=== PATIENT | male | born 1970 | race Caucasian/White ===

== ENCOUNTER 2019-02-14 13:45 | Inpatient (IN) | payer MEDICAID, SELFPAY ==
[2019-02-14] VITALS (9 sets, daily range): BP systolic 104–133; BP diastolic 58–84; PULSE 75–89; RESP 16–20; TEMP 36.1–36.8; O2SAT 90–98; BMI 34.8; BMI 34.2; BMI 34.3
--- NOTE | 2019-02-14 13:50 | NURSING ---
NO OLD EKGS
--- NOTE | 2019-02-14 13:56 | EKG12_ITS ---
Test Reason : CP Blood Pressure : / mmHG Vent. Rate : 076 BPM Atrial Rate : 076 BPM P-R Int : 168 ms QRS Dur : 100 ms QT Int : 420 ms P-R-T Axes : 061 082 069 degrees QTc Int : 472 ms Normal sinus rhythm Nonspecific T wave abnormality Abnormal ECG Confirmed by NIRMAL ELISE, NINFA ([id number]), editor sound IRISH CHOWDHURY ([id number]) on 02/17/2019 10:23:17 AM Referred By: Mega Ryan Confirmed By:GELY KINNEY MD
[2019-02-14 14:03] LABS: Absolute Lymphocyte Count 8.05 X10^3/uL (0.83-4.51); Absolute Neutrophil Count 13.6 X10^3/uL (2.0-7.7); Basophil# 0.24 X10^3/uL; Eosinophil# 0.31 X10^3/uL; Eosinophils% 1.3 % (0-5); Hematocrit 54.3 % (40-54); Hemoglobin 19.1 g/dL (13.0-16.5); Lymphocyte # 8.05 X10^3/ul (4.0); Lymphocyte % 33.7 % (19-41); Mean Corp Hgb Conc 35.2 g/dL (32-36); Mean Corpuscular Hgb 31.8 pg (27.0-32.0); Mean Corpuscular Volume 90.5 fL (80-94); Monocyte# 1.45 X10^3/uL; Monocyte% 6.1 % (0-10); NRBC Flagged by Analyzer 0 % (0-5); Neutrophil % 56.9 % (47-70); POSITIVE DIFFERENTIAL YES; Platelet Count 301 K/mm3 (150-450); RBC Distribution Width CV 12.9 % (11.6-14.6); RBC Distribution Width SD 42.3 fl (35.1-43.9); White Blood Count 23.9 K/mm3 (4.4-11.0)
--- NOTE | 2019-02-14 14:03 | RAD_ITS ---
STUDY: X-RAY CHEST REASON FOR EXAM: Male, 48 years old. Chest pain. Nausea and vomiting. TECHNIQUE: Single frontal view of the chest. COMPARISON: February 09, 2012 FINDINGS: Low-volume inspiration with diffuse interstitial pattern. There is no demonstrated pleural abnormality. Normal size heart. Normal mediastinum and vane. Normal visualized pulmonary arteries. Normal visualized aortic arch and descending thoracic aorta. Normal visualized thoracic spine. Normal visualized ribs, clavicles, and shoulders. There is no demonstrated abnormality of the visualized soft tissue structures of the upper abdomen. RAD/Chest 1 View (Portable) IMPRESSION: Low volume inspiration with diffuse interstitial pattern. No acute or active cardiopulmonary disease. Electronically Signed: Blaise Chua MD at 14:25 EST , Service support ,
--- NOTE | 2019-02-14 14:04 | ED.DCSUM_ITS ---
- ER Visit Summary Date of Service: 02/14/19 Chief Complaint: Epigastric abdominal pain and lower chest pain. History of Present Illness: The patient is a 48 M past medical history of peptic ulcer and is teenage years. Otherwise is healthy. Patient had some alcoholic beverages yesterday. Today around 1130 started get epigastric abdominal pain with nausea vomiting. He was vomiting at home violently. After throwing up multiple times he did have a small amount of blood. No coffee-ground material no recent melena. States the pain is epigastric in his lower chest. No shortness of breath. Said he is never had anything like this before. He has no history of pancreatitis nor any history of cardiac disease. Physical Examination: Middle-aged male vital signs are stable initial blood pressure 104/58. Pulse is 96% on room air no hypoxia. He is diaphoretic. He is pale and he is actively vomiting. H EENT exam diaphoretic. Moist use membranes. Neck nontender. No lymphadenopathy. Lungs clear to auscultation bilaterally. Heart regular rhythm no murmur rate about 85. Chest wall nontender. Abdomen soft. Nondistended. Normal bowel sounds. Exquisitely tender in epigastric region. There is no hernia or mass. No signs of obstruction. No Sheehan sign. No McBurney's point tenderness. Patient is moving all 4 extremities. Calves are nontender without edema or cords. There is no cyanosis. Back nontender. Neurologically is awake and alert. He is following commands. No focal motor deficits. Test Results: EKG sinus rhythm rate of 76 no signs of [place] or ischemia. Chest x- ray portable No acute abnormality read by myself and the radiologist. CBC shows white count 23.9 hemoglobin 19 hematocrit 54. Liver enzymes are slightly elevated. Lipase is severely elevated at 31,577. Troponin normal. Chemistries unremarkable. CAT scan of the abdomen pelvis with IV contrast only shows acute pancreatitis with gallstones. Read by the radiologist and reviewed by me. Emergency Department Course and Treatment: Noise male with sudden onset epigastric pain with nausea and vomiting. Differential includes pancreatitis versus cardiac etiology versus gastritis versus other. He will undergo cardiac work-up. Including a lipase and liver. He received morphine and Zofran for pain. A liter of normal saline. Treatment Plan: Since been treated with morphine with for a total of 14 mg. Zofran doses x2. He is improving but his pain still 7 out of 10. I will now write him for Dilaudid 1 mg and Zofran. He is received a liter of normal saline. I will speak to the hospitalist about admission. I do have a CAT scan with IV contrast ordered. I spoke to the hospitalist and he is comfortable admitting the patient to the medical surgical floor. Disposition: Admission Impression: Acute epigastric abdominal pain with nausea and vomiting due to acute pancreatitis All stone seen on CAT scan. This note was generated with [employer] dictation software. It may contain incorrect words, spelling, and punctuation that were not noted in review of the chart prior to signing ED Disposition - Plan for ED Patient:
[2019-02-14 14:05] LABS: Differential Indicated SCAN CRITERIA MET
[2019-02-14] MEDS: morphine 8 MG/ML Syringe IV (14:06)
[2019-02-14] MEDS: Ondansetron 4 MG/2 ML Vial IV ×4 (14:06→21:29)
[2019-02-14] MEDS: 0.9% Normal Saline 1,000 ML 999 ML IV (14:07)
[2019-02-14 14:38] LABS: AST(SGOT) 125 U/L (15-37); Alanine Aminotransfer ALT/SGPT 104 U/L (16-61); Albumin, Serum 4.1 g/dL (3.2-5.0); Alkaline Phosphatase 139 U/L (45-117); Bilirubin, Direct 0.77 mg/dL (0.00-0.30); Globulin 3.4 g/dL (2.2-4.2); Protein, Total 7.5 g/dL (6.4-8.2)
[2019-02-14] MEDS: morphine 8 MG/ML Syringe 6 MG IV (15:04)
[2019-02-14 16:08] LABS: Anion Gap 11 (5-15); BUN 10 mg/dL (7-18); BUN/Creat Ratio 8.1 RATIO (10-20); Chloride 108 mmol/L (98-107); Creatinine, Serum 1.24 mg/dL (0.70-1.30); EST Glomerular Filtration Rate 66 mL/min (>60); Est Glom Filt Rate - Afr Amer 80 mL/min (>60); Estimated Creatinine Clearance 80.83 ml/min; Glucose 160 mg/dL (74-106); Lipase 31577 U/L (73-393); Potassium 3.2 mmol/L (3.5-5.1); Sodium Level 140 mmol/L (136-145)
--- NOTE | 2019-02-14 16:17 | CT_ITS ---
STUDY: CT ABDOMEN AND PELVIS WITH CONTRAST REASON FOR EXAM: Male, 48 years old. EPIGASTRIC PAIN. PANCREATITIS RADIATION DOSAGE (If Supplied By Facility): CTDIvol = ( 16.25 ) mGy, DLP = ( 1353.19 ) mGycm TECHNIQUE: Transaxial images were obtained from the dome of the diaphragm to the symphysis pubis without oral contrast. IV 100mL Isovue-300 was administered. Sagittal and coronal images were reconstructed. Individualized dose optimization techniques were used for this CT. COMPARISON: None. FINDINGS: There is right basilar atelectasis and/or scarring present. The visualized portions of the heart are within normal limits. Normal liver. There are gallstones within the gallbladder. Normal spleen. There is diffuse enlargement of the pancreas with david-pancreatic edema suggesting acute pancreatitis. Normal bilateral adrenal glands. Normal right kidney. Normal left kidney. Normal visualized stomach. Normal small intestine. Normal colon. The appendix is visualized and appears normal. Normal abdominal aorta. Normal inferior vena cava. Normal retroperitoneum. Normal urinary bladder. Normal abdominal wall. There mild degenerative changes of the thoracic and lumbar spine. CT/Abdomen/Pelvis W IV Cont ONLY IMPRESSION: Acute pancreatitis. Cholelithiasis. Electronically Signed: Hannah Villarreal MD at 16:48 EST Tel , Service support ,
--- NOTE | 2019-02-14 16:43 | NURSING ---
317 SEVERE PANCREATITIS PATRICIA
[2019-02-14] MEDS: HYDROmorphone 1 MG/ML Syringe IV ×3 (16:45→21:48)
--- NOTE | 2019-02-14 17:43 | US_ITS ---
STUDY: ABDOMINAL ULTRASOUND - RIGHT UPPER QUADRANT REASON FOR VISIT: Male, 48 years old PANCREATITIS AND EPIGASTRIC PAIN TECHNIQUE: Ultrasound evaluation of the right upper quadrant was performed with real-time and static rangel-scale imaging. TECHNICAL QUALITY: Adequate. COMPARISON: CT dated February 14, 2019 FINDINGS: Liver: The liver measures 16.2 cm. There is normal echogenicity of the liver. The bile ducts are within normal limits. There is hepatic color flow. The direction of portal flow is hepatopetal. There is no demonstrated mass lesion. Gallbladder: Normal distended gallbladder. The gallbladder wall measures 4.3 mm. There is a positive sonographic Sheehan''s sign. There is no pericholecystic fluid. There are multiple echogenic structures within the gallbladder, consistent with multiple gallstones. Common Bile Duct (C.B.D.): The common bile duct measures 4.3 mm. Pancreas: There is nonvisualization of the pancreas secondary to overlying bowel gas. Right Kidney: Normal size of the right kidney. The right kidney measures 11.5 cm in length. Normal renal cortex. There is no demonstrated renal mass or cyst. There is no right hydronephrosis. US/Gallbladder IMPRESSION: Cholelithiasis associated with mild gallbladder wall thickening and a reported positive sonographic Sheehan''s sign and no pericholecystic fluid; may be secondary to chronic cholecystitis. Nonvisualization of the pancreas secondary to overlying bowel gas. Electronically Signed: Hannah Villarreal MD at 18:36 EST Tel , Service support ,
--- NOTE | 2019-02-14 18:08 | PCM.HP.STD ---
History of Present Illness Date of Admission: 02/14/19 Chief Complaint: Abdominal pain The patient is a 48 year old M with no significant past medical history presents with acute onset abdominal pain that started this morning. He states that around 1130 he started feeling a little bit nauseated and feverish as well as chilled and then he started having some epigastric abdominal pain that steadily worsened throughout the day. He states that for the last several weeks he has been in his normal health, yesterday he had 2-1/2 bourbon and Cokes which she did because of the holidays with family, otherwise he rarely drinks even more than once a month. He denies any lightheadedness or dizziness, however he presented to the ER and was found to have a lipase of 31,000 as well as a leukocytosis to 23.9 and a hemoglobin of 19.1 indicating severe dehydration. Also of note his total bilirubin was 1.6 with a direct bilirubin of 0.77 and an AST of 125 and an ALT of 104. CT scan of his abdomen pelvis shows severe pancreatitis with cholelithiasis. Past Medical History Allergies No Known Allergies Allergy (Verified 02/14/19 13:45) Home Medications: Ambulatory Orders Medication Instructions Recorded NK 02/14/19 Surgical History: no surgical history Smoking Status: Current every day smoker Tobacco Use: Secondhand, Cigarettes Alcohol: Rare Drugs: None - *Family History Maternal History Items: Heart Disease Paternal History Items: Unknown Review of Systems Constitutional: Reports: Chills, Fever HEENT: Denies: Head Aches, Sinus Congestion, Sinus Drainage Cardiovascular: Denies: Chest Pain, Palpitations Respiratory: Denies: Cough, Shortness of breath at rest, Sputum production Gastrointestinal: Reports: Abdominal Pain, Nausea, Vomiting Genitourinary: Denies: Dysuria Musculoskeletal: Denies: Joint Pain, Joint Tenderness Skin: Denies: Rash, Wounds Neurological: Denies: Numbness, Tingling, Focal weakness Psychiatric: Denies: Anxiety, Depression Hematologic/ Lymphatic: Denies: Easy Bruising, Easy Bleeding VTE Information - Inpt Only VTE Present on Admission: No - Physical Exam Vitals/I&O's: Vital Signs Temp Pulse Resp BP Pulse Ox 96.9 F L 81 18 108/78 96 02/14/19 13:46 02/14/19 16:00 02/14/19 16:00 02/14/19 16:00 02/14/19 16:00 Oxygen Flow Rate (L/min) 2 Oxygen Delivery Method Room Air Weight: 253 lb 4.978 oz Body Mass Index (BMI) 34.2 Intake and Output for Last 24 Hours 02/12/19 02/13/19 02/14/19 23:59 23:59 23:59 Intake Total 1035 / 1035 Balance 1035 / 1035 General: Alert, Oriented x3, Cooperative, - - In mild distress from abdominal pain HEENT: Atraumatic, PERRLA, EOMI, Normocephalic Oral: Dry Mucosa Neck: Supple, No JVD Lungs: Clear to auscultation, Normal air movement, No rhonchi, No wheeze, No rales Cardiovascular: Regular rate, Regular Rhythm, Normal S1, Normal S2, No murmurs Abdomen: Soft, Non-Distended, No Hepato-splenomegaly, Tender - Severely tender in the epigastric region Extremities: No edema, Capillary Refill Less than 3 Seconds Skin: No rashes, No breakdown Neurological: Neuro grossly intact, Sensory exam intact to light touch and pain Psych/Mental Status: Normal Affect, Appropriate Laboratory Results 02/14/19 13:50: Total Bilirubin 1.60 H, Direct Bilirubin 0.77 H, AST 125 H, ALT 104 H, Alkaline Phosphatase 139 H, Total Protein 7.5, Albumin 4.1, Globulin 3.4 02/14/19 13:51: WBC 23.9 H, RBC 6.00, Hgb 19.1 H*, Hct 54.3 H, MCV 90.5, MCH 31.8, MCHC 35.2, RDW Std Deviation 42.3, RDW Coeff of George 12.9, Plt Count 301, MPV 10.0, Immature Gran % (Auto) 1.000 H, Neut % (Auto) 56.9, Lymph % (Auto) 33.7, [place] % (Auto) 6.1, Eos % (Auto) 1.3, Baso % (Auto) 1.0, Absolute Neuts (auto) 13.6 H, Absolute Lymphs (auto) 8.05 H, Nucleated RBC % 0, Diff Path Review June02/14/19 13:51: Sodium 140, Potassium 3.2 L, Chloride 108 H, Carbon Dioxide 21.0, Anion Gap 11, BUN 10, Creatinine 1.24, Estim Creat Clear Calc 80.83, Est GFR (MDRD) Af Amer 80, Est GFR (MDRD) Non-Af 66, BUN/Creatinine Ratio 8.1 L, Glucose 160 H, Calcium 10.0, Troponin I < 0.015, Lipase 59668 H Current Medications Enoxaparin Sodium (Lovenox) 40 mg SC DAILY INGRID Hydromorphone HCl (Dilaudid Inj) 1 mg IV Q4H PRN PRN PRN Reason: Pain Score 6-10/10 Sodium Chloride () 1,000 mls @ 200 mls/hr IV .Q5H INGRID Ondansetron HCl (Zofran) 4 mg IV Q8H PRN PRN PRN Reason: NAUSEA/VOMITING Prochlorperazine Edisylate (Compazine Iv) 5 mg IV Q4H PRN PRN PRN Reason: Breakthrough nausea/vomiting Sodium Chloride () 10 - 40 ml IV UD PRN PRN Reason: SALINE FLUSH Assessment/Plan 1. Severe pancreatitis -He received 2 L of fluids in the ER and will maintain him on IV fluid rate of 200 cc/h -N.p.o. -Could not discern whether or not there is ductal dilatation on the CT scan therefore will obtain a right upper quadrant ultrasound for further evaluation -No antibiotics at this time -Lipase of 31,000, will not recheck -Continue with Dilaudid 1 mg every 4 may need to decrease interval as he seems to have tolerated significant amount of morphine and Dilaudid in the ER -Continue with Zofran and Compazine as needed for nausea -We will obtain a lipid profile to evaluate his triglycerides 2. Tobacco abuse -Advised cessation DVT: Lovenox Code Visit Inpatient E&M: 57237 Init Hosp L2
[2019-02-14] MEDS: 0.9% Normal Saline 1,000 ML 200 ML IV ×2 (18:12→23:20)
[2019-02-14] MEDS: 0.9% Saline Lock 10 ML Syringe IV (18:16)
[2019-02-14 18:37] LABS: Cholesterol 154 mg/dL (200); High Density Lipoprotein 27 mg/dL; Triglycerides 139 mg/dL; Very Low Density Lipoprotein 28 mg/dL (5-40)
[2019-02-14] MEDS: proCHLORPERazine 10 MG/2 ML Vial 5 MG IV ×2 (18:51→23:22)
[2019-02-15] VITALS (11 sets, daily range): BP systolic 133–153; BP diastolic 71–106; PULSE 69–137; RESP 18–28; TEMP 36.8–38.2; O2SAT 92–97
[2019-02-15] MEDS: proMETHazine 25 MG/ML Syringe 6.25 MG IV ×2 (00:15→11:31)
[2019-02-15] MEDS: 0.9% Normal Saline 1,000 ML 200 ML IV ×3 (04:32→19:23)
[2019-02-15] MEDS: HYDROmorphone 1 MG/ML Syringe IV ×5 (04:33→23:22)
[2019-02-15 06:20] LABS: Absolute Lymphocyte Count 1.28 X10^3/uL (0.83-4.51); Absolute Neutrophil Count 21.5 X10^3/uL (2.0-7.7); Basophil# 0.06 X10^3/uL; Basophil% 0.2 % (0-1); Eosinophils% 0.4 % (0-5); Lymphocyte # 1.28 X10^3/ul (4.0); Lymphocyte % 5.2 % (19-41); Mean Corpuscular Hgb 31.5 pg (27.0-32.0); Mean Corpuscular Volume 92.6 fL (80-94); Mean Platelet Vol. 10.3 fl (6.2-12.0); Monocyte# 1.38 X10^3/uL; Monocyte% 5.6 % (0-10); NRBC Flagged by Analyzer 0 % (0-5); Neutrophil # 21.53 X10^3/uL (2.7-7.7); Neutrophil % 87.6 % (47-70); POSITIVE DIFFERENTIAL YES; Platelet Count 261 K/mm3 (150-450); RBC Distribution Width CV 12.9 % (11.6-14.6); RBC Distribution Width SD 43.8 fl (35.1-43.9); Red Blood Count 6.06 M/mm3 (4.6-6.2); White Blood Count 24.6 K/mm3 (4.4-11.0)
[2019-02-15 06:49] LABS: AST(SGOT) 50 U/L (15-37); Alanine Aminotransfer ALT/SGPT 101 U/L (16-61); Albumin, Serum 3.4 g/dL (3.2-5.0); Alkaline Phosphatase 121 U/L (45-117); Anion Gap 9 (5-15); BUN 16 mg/dL (7-18); BUN/Creat Ratio 14.7 RATIO (10-20); Calcium,Total 8.2 mg/dL (8.5-10.1); Chloride 107 mmol/L (98-107); Creatinine, Serum 1.09 mg/dL (0.70-1.30); EST Glomerular Filtration Rate 77 mL/min (>60); Est Glom Filt Rate - Afr Amer 93 mL/min (>60); Estimated Creatinine Clearance 91.96 ml/min; Globulin 3.3 g/dL (2.2-4.2); Glucose 213 mg/dL (74-106); Potassium 4.8 mmol/L (3.5-5.1); Protein, Total 6.7 g/dL (6.4-8.2); Sodium Level 140 mmol/L (136-145)
[2019-02-15 07:07] LABS: Hematocrit 56.1 % (40-54)
[2019-02-15 07:08] LABS: Differential Indicated SCAN CRITERIA MET; Hemoglobin 19.1 g/dL (13.0-16.5)
[2019-02-15 07:14] LABS: Differential Comment SCANNED; Platelet Estimate ADEQUATE (ADEQ)
[2019-02-15] MEDS: Ondansetron 4 MG/2 ML Vial IV ×2 (07:47→18:31)
[2019-02-15] MEDS: 0.9% Saline Lock 10 ML Syringe IV ×4 (07:48→23:23)
[2019-02-15] MEDS: 0.9% Normal Saline 1,000 ML 999 ML IV ×4 (09:18→17:50)
--- NOTE | 2019-02-15 10:01 | PN_ITS ---
Subjective: Still with significant abdominal pain as well as nausea and episodes of vomiting. Phenergan was added overnight to his regimen for nausea Vitals/I&O's: Vital Signs Temp Pulse Resp BP Pulse Ox 99.4 F H 108 H 24 H 134/94 H 93 02/15/19 07:51 02/15/19 07:51 02/15/19 07:51 02/15/19 07:51 02/15/19 07:51 Oxygen Flow Rate (L/min) 2 Oxygen Delivery Method Room Air Weight: 253 lb 4.978 oz Body Mass Index (BMI) 34.2 Intake and Output for Last 24 Hours 02/13/19 02/14/19 02/15/19 23:59 23:59 23:59 Intake Total 2034 / 2034 1989. / Output Total 100 / 100 300 / 300 Balance 1934 1690.00 / 169.00 General: Alert, Oriented x3, Cooperative, - - In mild distress from abdominal pain HEENT: Atraumatic, PERRLA, EOMI, Normocephalic Oral: Dry Mucosa Neck: Supple, No JVD Lungs: Clear to auscultation, Normal air movement, No rhonchi, No wheeze, No rales Cardiovascular: Regular rate, Regular Rhythm, Normal S1, Normal S2, No murmurs Abdomen: Soft, Non-Distended, No Hepato-splenomegaly, Tender - Severely tender in the epigastric region Extremities: No edema, Capillary Refill Less than 3 Seconds Skin: No rashes, No breakdown Neurological: Neuro grossly intact, Sensory exam intact to light touch and pain Psych/Mental Status: Normal Affect, Appropriate Laboratory Results 02/14/19 13:50: Total Bilirubin 1.60 H, Direct Bilirubin 0.77 H, AST 125 H, ALT 104 H, Alkaline Phosphatase 139 H, Total Protein 7.5, Albumin 4.1, Globulin 3.4 02/14/19 13:51: WBC 23.9 H, RBC 6.00, Hgb 19.1 H*, Hct 54.3 H, MCV 90.5, MCH 31.8, MCHC 35.2, RDW Std Deviation 42.3, RDW Coeff of George 12.9, Plt Count 301, MPV 10.0, Immature Gran % (Auto) 1.000 H, Neut % (Auto) 56.9, Lymph % (Auto) 33.7, [place] % (Auto) 6.1, Eos % (Auto) 1.3, Baso % (Auto) 1.0, Absolute Neuts (auto) 13.6 H, Absolute Lymphs (auto) 8.05 H, Nucleated RBC % 0, Diff Path Review [facility] 02/14/19 13:51: Sodium 140, Potassium 3.2 L, Chloride 108 H, Carbon Dioxide 21.0, Anion Gap 11, BUN 10, Creatinine 1.24, Estim Creat Clear Calc 80.83, Est GFR (MDRD) Af Amer 80, Est GFR (MDRD) Non-Af 66, BUN/Creatinine Ratio 8.1 L, Glucose 160 H, Calcium 10.0, Troponin I < 0.015, Lipase 09903 H 02/14/19 17:45: Triglycerides 139, Cholesterol 154, LDL Cholesterol 99, VLDL Cholesterol 28, HDL Cholesterol 27 L 02/15/19 05:25: WBC 24.6 H, RBC 6.06, Hgb 19.1 H*, Hct 56.1 H, MCV 92.6, MCH 31.5, MCHC 34.0, RDW Std Deviation 43.8, RDW Coeff of George 12.9, Plt Count 261, MPV 10.3, Immature Gran % (Auto) 1.000 H, Neut % (Auto) 87.6 H, Lymph % (Auto) 5.2 L, [place] % (Auto) 5.6, Eos % (Auto) 0.4, Baso % (Auto) 0.2, Absolute Neuts (auto) 21.5 H, Absolute Lymphs (auto) 1.28, Nucleated RBC % 0, Differential Comment SCANNED, Diff Path Review [facility], Platelet Estimate ADEQUATE 02/15/19 05:25: Sodium 140, Potassium 4.8, Chloride 107, Carbon Dioxide 24.0, Anion Gap 9, BUN 16, Creatinine 1.09, Estim Creat Clear Calc 91.96, Est GFR (MDRD) Af Amer 93, Est GFR (MDRD) Non-Af 77, BUN/Creatinine Ratio 14.7, Glucose 213 H, Calcium 8.2 L, Total Bilirubin 0.80, AST 50 H, ALT 101 H, Alkaline Phosphatase 121 H, Total Protein 6.7, Albumin 3.4, Globulin 3.3, Albumin/Globulin Ratio 1.0 Current Medications Enoxaparin Sodium (Lovenox) 40 mg SC DAILY INGRID Hydromorphone HCl (Dilaudid Inj) 1 mg IV Q3H PRN PRN PRN Reason: Pain Score 4-10/10 Last Admin: 02/15/19 04:33 Dose: 1 mg Documented by: Sodium Chloride () 1,000 mls @ 200 mls/hr IV .Q5H INGRID Last Infusion: 02/15/19 09:17 Dose: 0 mls/hr Documented by: Pantoprazole Sodium 40 mg/ (Sodium Chloride) 110 mls @ 330 mls/hr IV Q12 INGRID Last Infusion: 02/15/19 04:54 Dose: Infused Documented by: Nicotine (Nicoderm Cq (Pbkc)) 21 mg TRANSDERM. DAILY INGRID Ondansetron HCl (Zofran) 4 mg IV Q8H PRN PRN PRN Reason: NAUSEA/VOMITING Last Admin: 02/15/19 07:47 Dose: 4 mg Documented by: Promethazine HCl (Phenergan) 6.25 mg IV Q6H PRN PRN PRN Reason: NAUSEA/VOMITING Last Admin: 02/15/19 00:15 Dose: 6.25 mg Documented by: Sodium Chloride () 10 - 40 ml IV UD PRN PRN Reason: SALINE FLUSH Last Admin: 02/15/19 07:48 Dose: 10 ml Documented by: STROKE Vital Signs/Narrative: Vital Signs Temp Pulse Resp BP Pulse Ox 02/15/19 07:51 99.4 F H 108 H 24 H 134/94 H 93 Medical Necessity - Tobacco Use Smoking Status: Current every day smoker Tobacco Use: Secondhand, Cigarettes Assessment/Plan 1. Severe pancreatitis -He received 2 L of fluids in the ER and will maintain him on IV fluid rate of 200 cc/h -N.p.o. we will give since he is tachycardic and still not making a significant amount of urine -Could not discern whether or not there is ductal dilatation on the CT scan common bile duct on ultrasound was 4.3 mm, T bili is now normal and his LFTs are improving -No antibiotics at this time -Lipase of 31,000, will not recheck -Continue with Dilaudid 1 mg every 3 hr -Continue with Zofran and Phenergan as needed for nausea -Triglycerides were normal, and with the resolution of his T bili the likely cause was alcohol 2. Tobacco abuse -Advised cessation -We will provide nicotine patch DVT: Giselax Code Visit Inpatient E&M: 46270 Subs Hosp L2
--- NOTE | 2019-02-15 13:46 | NURSING ---
This nurse bladder scanned pt and obtained 12cc but this nurse and Viviana RN felt like this pt was having retention. Urinated 200cc just approximately 25 min prior to bladder scan. This nurse st. cathed pt for 25cc of julia colored urine.
[2019-02-15] MEDS: proCHLORPERazine 10 MG/2 ML Vial 5 MG IV (16:12)
[2019-02-15] MEDS: Bisacodyl 10 MG Suppository RECTAL (16:14)
--- NOTE | 2019-02-15 17:50 | EKG12_ITS ---
Test Reason : Blood Pressure : / mmHG Vent. Rate : 129 BPM Atrial Rate : 129 BPM P-R Int : 148 ms QRS Dur : 080 ms QT Int : 294 ms P-R-T Axes : 052 046 045 degrees QTc Int : 430 ms Sinus tachycardia Low voltage QRS Nonspecific T wave abnormality Abnormal ECG Confirmed by OLAMIDE ELISE, CARLI ([id number]), photographic editor ALKA HENSON ([id number]) on 02/23/2019 11:31:10 AM Referred By: Mega Ryan Confirmed By:CARLI QUIÑONEZ MD
[2019-02-15] MEDS: 0.9% Normal Saline 1,000 ML 500 ML IV (19:23)
[2019-02-16] VITALS (14 sets, daily range): BP systolic 123–151; BP diastolic 81–106; PULSE 111–129; RESP 16–32; TEMP 36.9–38.1; O2SAT 92–95; BMI 31.6
[2019-02-16] MEDS: HYDROmorphone 1 MG/ML Syringe IV ×3 (03:45→22:14)
[2019-02-16] MEDS: 0.9% Normal Saline 1,000 ML 200 ML IV ×2 (03:49→08:58)
--- NOTE | 2019-02-16 05:33 | NURSING ---
made Raymond CHARLTON aware of pts vitals.
[2019-02-16 05:58] LABS: Absolute Lymphocyte Count 1.35 X10^3/uL (0.83-4.51); Absolute Neutrophil Count 24.9 X10^3/uL (2.0-7.7); Basophil# 0.09 X10^3/uL; Basophil% 0.3 % (0-1); Eosinophil# 0.17 X10^3/uL; Eosinophils% 0.6 % (0-5); Hematocrit 45.7 % (40-54); Hemoglobin 15.6 g/dL (13.0-16.5); Lymphocyte # 1.35 X10^3/ul (4.0); Lymphocyte % 4.7 % (19-41); Mean Corp Hgb Conc 34.1 g/dL (32-36); Mean Corpuscular Volume 93.8 fL (80-94); Mean Platelet Vol. 10.6 fl (6.2-12.0); Monocyte# 1.88 X10^3/uL; Monocyte% 6.5 % (0-10); NRBC Flagged by Analyzer 0 % (0-5); Neutrophil # 24.91 X10^3/uL (2.7-7.7); Neutrophil % 86.4 % (47-70); POSITIVE DIFFERENTIAL YES; POSITIVE MORPHOLOGY YES; Platelet Count 157 K/mm3 (150-450); RBC Distribution Width CV 13.7 % (11.6-14.6); RBC Distribution Width SD 46.5 fl (35.1-43.9); Red Blood Count 4.87 M/mm3 (4.6-6.2); White Blood Count 28.8 K/mm3 (4.4-11.0)
[2019-02-16 06:22] LABS: Differential Indicated SCAN CRITERIA MET
[2019-02-16 06:46] LABS: Differential Comment SCANNED
[2019-02-16 06:55] LABS: ALB/GLOB Ratio 0.8 RATIO (0.9-2.4); AST(SGOT) 42 U/L (15-37); Alanine Aminotransfer ALT/SGPT 45 U/L (16-61); Albumin, Serum 2.5 g/dL (3.2-5.0); Alkaline Phosphatase 92 U/L (45-117); Anion Gap 5 (5-15); BUN 12 mg/dL (7-18); BUN/Creat Ratio 14.4 RATIO (10-20); Calcium,Total 7.6 mg/dL (8.5-10.1); Chloride 110 mmol/L (98-107); Creatinine, Serum 0.83 mg/dL (0.70-1.30); EST Glomerular Filtration Rate 105 mL/min (>60); Est Glom Filt Rate - Afr Amer 127 mL/min (>60); Estimated Creatinine Clearance 120.76 ml/min; Globulin 3.1 g/dL (2.2-4.2); Glucose 177 mg/dL (74-106); Lipase 1545 U/L (73-393); Potassium 3.9 mmol/L (3.5-5.1); Protein, Total 5.6 g/dL (6.4-8.2); Sodium Level 138 mmol/L (136-145)
[2019-02-16] MEDS: Ondansetron 4 MG/2 ML Vial IV (09:04)
--- NOTE | 2019-02-16 10:36 | CON.PCM_ITS ---
Reason for Consult Date of Consultation: 02/16/19 History of Present Illness: The patient is a 48 year old M presented to ER due to epigastric abd pain starting 02/14 about 11:30am. Pt CT a/p showed pancreatitis, cholelithiasis, with WBC 23->24->28 this AM, TB was 1.6 now 1.1 and AST/ALT were elevated now wn l. U/S showed GS, 4.3 mm wall, CBD 4.3 mm, no pericholecystic fluid. Pt still c/o epigastric pain, denies n/v currently, +diarrhea this AM, denies previous abdominal surgeries/medication. Pt is on meropenem 1 g IV q8H on the floor. Past Medical History Allergies No Known Allergies Allergy (Verified 02/14/19 13:45) Home Medications: Ambulatory Orders Medication Instructions Recorded NK 02/14/19 Surgical History: no surgical history Psychiatric History: No pertinent psych hx Smoking Status: Current every day smoker Tobacco Use: Secondhand, Cigarettes Drugs: None - *Family History Maternal History Items: Heart Disease Paternal History Items: Unknown Review of Systems HEENT: Denies: Difficulty Swallowing Cardiovascular: Denies: Chest Pain Gastrointestinal: Reports: Abdominal Pain, Diarrhea. Denies: Nausea, Vomiting Patient Problems: Active and Suspected Problems Cholecystitis (Acute) Pancreatitis (Acute) - Physical Exam Vitals/I&O's: Vital Signs Temp Pulse Resp BP Pulse Ox 99.4 F H 121 H 20 H 150/101 H 95 02/16/19 05:30 02/16/19 05:30 02/16/19 05:30 02/16/19 05:30 02/16/19 05:30 Oxygen Flow Rate (L/min) 2 Oxygen Delivery Method Nasal Cannula Weight: 253 lb 4.978 oz Body Mass Index (BMI) 34.2 Intake and Output for Last 24 Hours 02/14/19 02/15/19 02/16/19 23:59 23:59 23:59 Intake Total 2034 8220.00 / 8220.00 1979. / 1979.00 Output Total 100 / 100 975 / 975 500 / 500 Balance 193 / 1934 7245.00 / 7245.00 1480.00 / 1480.00 General: Alert, Oriented x3, Cooperative HEENT: Atraumatic Cardiovascular: Tachycardic Abdomen: Soft, Distended - mild, Tender - diffusely, mainly epigastic, no guarding/mild rebound Extremities: No clubbing, No cyanosis, No edema Neurological: Cranial nerves II-XII grossly intact Psych/Mental Status: Normal Affect Laboratory Results 02/16/19 05:34: WBC 28.8 H, RBC 4.87, Hgb 15.6, Hct 45.7, MCV 93.8, MCH 32.0, MCHC 34.1, RDW Std Deviation 46.5 H, RDW Coeff of George 13.7, Plt Count 157, MPV 10.6, Immature Gran % (Auto) 1.500 H, Neut % (Auto) 86.4 H, Lymph % (Auto) 4.7 L , [place] % (Auto) 6.5, Eos % (Auto) 0.6, Baso % (Auto) 0.3, Absolute Neuts (auto) 24.9 H, Absolute Lymphs (auto) 1.35, Nucleated RBC % 0, Differential Comment SCANNED, Diff Path Review June02/16/19 05:34: Sodium 138, Potassium 3.9, Chloride 110 H, Carbon Dioxide 23.0, Anion Gap 5, BUN 12, Creatinine 0.83, Estim Creat Clear Calc 120.76, Est GFR (MDRD) Af Amer 127, Est GFR (MDRD) Non-Af 105, BUN/Creatinine Ratio 14.4, Glucose 177 H, Calcium 7.6 L, Total Bilirubin 1.10 H, AST 42 H, ALT 45, Alkaline Phosphatase 92, Total Protein 5.6 L, Albumin 2.5 L, Globulin 3.1, Albumin/Globulin Ratio 0.8 L, Lipase 1545 H Current Medications Enoxaparin Sodium (Lovenox) 40 mg SC DAILY [facility] Last Admin: 02/16/19 09:02 Dose: Not Given Documented by: Hydromorphone HCl (Dilaudid Inj) 1 mg IV Q3H PRN PRN PRN Reason: Pain Score 4-10/10 Last Admin: 02/16/19 09:04 Dose: 1 mg Documented by: Sodium Chloride () 1,000 mls @ 200 mls/hr IV .Q5H [facility] Last Infusion: 02/16/19 09:02 Dose: 0 mls/hr Documented by: Pantoprazole Sodium 40 mg/ (Sodium Chloride) 110 mls @ 330 mls/hr IV Q12 INGRID Last Admin: 02/16/19 08:59 Dose: 330 mls/hr Documented by: Meropenem 1 gm/ Sodium (Chloride) 120 mls @ 240 mls/hr IV Q8 INGRID Last Infusion: 02/16/19 06:40 Dose: Infused Documented by: Nicotine (Nicoderm Cq (Pbkc)) 21 mg TRANSDERM. DAILY INGRID Last Admin: 02/16/19 09:00 Dose: 21 mg Documented by: Ondansetron HCl (Zofran) 4 mg IV Q8H PRN PRN PRN Reason: NAUSEA/VOMITING Last Admin: 02/16/19 09:04 Dose: 4 mg Documented by: Prochlorperazine Edisylate (Compazine Iv) 5 mg IV Q4H PRN PRN PRN Reason: NAUSEA/VOMITING Last Admin: 02/15/19 16:12 Dose: 5 mg Documented by: Promethazine HCl (Phenergan) 6.25 mg IV Q6H PRN PRN PRN Reason: NAUSEA/VOMITING Last Admin: 02/15/19 11:31 Dose: 6.25 mg Documented by: Sodium Chloride () 10 - 40 ml IV UD PRN PRN Reason: SALINE FLUSH Last Admin: 02/15/19 23:23 Dose: 10 ml Documented by: Assessment/Plan All Active Problems Cholecystitis (Acute) Pancreatitis (Acute) 48-year-old male with acute cholecystitis, cholelithiasis, gallstone pancreatitis?lipase improving 1.Reviewed the anatomy with the patient and discussed the procedure: laparoscopic cholecystectomy with cholangiograms, possible open. Review risks including but not limited to bleeding, infection, hernia, bile leak/retained gallstones requiring another procedure ERCP- Endoscopic Retrograde Cholangiopancreatography, injury to another organ (bile ducts, common bile duct, small bowel, etc.) which may require transfer to tertiary care facility and conversion to an open procedure. All questions were answered. Rachel Hoover M.D. Pager: [phone] [facility] [address] [place] [address], [address] [place] [address] Office: [phone]
--- NOTE | 2019-02-16 10:46 | PN_ITS ---
Patient Problems: Active and Suspected Problems Pancreatitis (Acute) Cholecystitis (Acute) Reason for Visit: Feeling better. Still with abdominal pain. Anxious to get his gall bladder out. State he drinks a bottle of 40-proof bourbon every 6-8 weeks. Vitals/I&O's: Vital Signs Temp Pulse Resp BP Pulse Ox 37.4 C H 121 H 20 H 150/101 H 95 02/16/19 05:30 02/16/19 05:30 02/16/19 05:30 02/16/19 05:30 02/16/19 05:30 Oxygen Flow Rate (L/min) 2 Oxygen Delivery Method Nasal Cannula Weight: 114.9 kg Body Mass Index (BMI) 34.2 Intake and Output for Last 24 Hours 02/14/19 02/15/19 02/16/19 23:59 23:59 23:59 Intake Total 2034 / 2034 8220.00 / 8220.00 2090.00 / 2090.00 Output Total 100 / 100 975 / 975 500 / 500 Balance 1935 / 1935 7245.00 / 7245.00 1590.00 / 1590.00 General: Alert, No apparent distress HEENT: Atraumatic, Normocephalic Oral: Moist Mucosa, No Gingival or Mucosal Lesions/ Ulcerations Neck: No Nodes, Trachea Midline Lungs: Clear to auscultation, Normal air movement, No rhonchi, No wheeze, No rales Cardiovascular: Regular rate, Regular Rhythm, Normal S1, Normal S2, No murmurs Abdomen: Bowel Sounds Present, Soft, Non-Distended, No Hepato-splenomegaly, Tender Extremities: No edema, No Calf Tenderness Skin: No rashes, No breakdown Musculoskeletal: No Tenderness to Palpation of Joints or Extremities, No Muscle Wasting Psych/Mental Status: Normal Affect, Appropriate Laboratory Results 02/16/19 05:34: WBC 28.8 H, RBC 4.87, Hgb 15.6, Hct 45.7, MCV 93.8, MCH 32.0, MCHC 34.1, RDW Std Deviation 46.5 H, RDW Coeff of George 13.7, Plt Count 157, MPV 10.6, Immature Gran % (Auto) 1.500 H, Neut % (Auto) 86.4 H, Lymph % (Auto) 4.7 L , Calvert % (Auto) 6.5, Eos % (Auto) 0.6, Baso % (Auto) 0.3, Absolute Neuts (auto) 24.9 H, Absolute Lymphs (auto) 1.35, Nucleated RBC % 0, Differential Comment SCANNED, Diff Path Review June foll 02/16/19 05:34: Sodium 138, Potassium 3.9, Chloride 110 H, Carbon Dioxide 23.0, Anion Gap 5, BUN 12, Creatinine 0.83, Estim Creat Clear Calc 120.76, Est GFR (MDRD) Af Amer 127, Est GFR (MDRD) Non-Af 105, BUN/Creatinine Ratio 14.4, Glucose 177 H, Calcium 7.6 L, Total Bilirubin 1.10 H, AST 42 H, ALT 45, Alkaline Phosphatase 92, Total Protein 5.6 L, Albumin 2.5 L, Globulin 3.1, Al bumin/Globulin Ratio 0.8 L, Lipase 1545 H Current Medications Enoxaparin Sodium (Lovenox) 40 mg SC DAILY [facility] Last Admin: 02/16/19 09:02 Dose: Not Given Documented by: Hydromorphone HCl (Dilaudid Inj) 1 mg IV Q3H PRN PRN PRN Reason: Pain Score 4-10/10 Last Admin: 02/16/19 09:04 Dose: 1 mg Documented by: Sodium Chloride () 1,000 mls @ 200 mls/hr IV .Q5H [facility] Last Infusion: 02/16/19 09:19 Dose: 200 mls/hr Documented by: Pantoprazole Sodium 40 mg/ (Sodium Chloride) 110 mls @ 330 mls/hr IV Q12 [facility] Last Infusion: 02/16/19 09:19 Dose: Infused Documented by: Meropenem 1 gm/ Sodium (Chloride) 120 mls @ 240 mls/hr IV Q8 [facility] Last Infusion: 02/16/19 06:40 Dose: Infused Documented by: Nicotine (Nicoderm Cq (Pbkc)) 21 mg TRANSDERM. DAILY [facility] Last Admin: 02/16/19 09:00 Dose: 21 mg Documented by: Ondansetron HCl (Zofran) 4 mg IV Q8H PRN PRN PRN Reason: NAUSEA/VOMITING Last Admin: 02/16/19 09:04 Dose: 4 mg Documented by: Prochlorperazine Edisylate (Compazine Iv) 5 mg IV Q4H PRN PRN PRN Reason: NAUSEA/VOMITING Last Admin: 02/15/19 16:12 Dose: 5 mg Documented by: Promethazine HCl (Phenergan) 6.25 mg IV Q6H PRN PRN PRN Reason: NAUSEA/VOMITING Last Admin: 02/15/19 11:31 Dose: 6.25 mg Documented by: Sodium Chloride () 10 - 40 ml IV UD PRN PRN Reason: SALINE FLUSH Last Admin: 02/15/19 23:23 Dose: 10 ml Documented by: Medical Necessity - Tobacco Use Smoking Status: Current every day smoker Tobacco Use: Secondhand, Cigarettes Assessment/Plan All Active Problems Pancreatitis (Acute) Cholecystitis (Acute) 1. acute pancreatitis * lipase improved * likely gallstone related * supportive mgmt 2. cholecystitis * acute v chronic * DW Dr. Hoover, plan for lap bibiana this afternoon * on meropenem 3. sepsis * 2/2 above * on meropenem * treat the underlying processes 4. VTE prophylaxis: mod risk. Enoxaparin. Code Visit Inpatient E&M: 91906 Subs Hosp L2
--- NOTE | 2019-02-16 12:01 | NURSING ---
report called to Zakia in AC, pt transported down via bed at this time, at bedside, requested pharmacy send 1400 dose of merrem to AC to be given to patient.
[2019-02-16 12:37] LABS: Pathologist Review Reviewed
[2019-02-16 12:44] LABS: Pathologist Review Reviewed
--- NOTE | 2019-02-16 13:00 | RAD_ITS ---
CLINICAL HISTORY: Male, 48 years old. Cholelithiasis and pancreatitis PROCEDURE: CHOLANGIOGRAM - intraoperative FLUOROSCOPY TIME (if supplied): (15.3 seconds Placement of the catheter and the procedure were performed by: Operating surgeon Fluoroscopy was provided by research food technologist, who was present in the room time of the procedure. TECHNIQUE: (All elements of maximal sterile barrier technique followed, including US elements as applicable) 45 fluoroscopic guided images were obtained during intraoperative cholangiogram. For more complete information recommend correlation with surgical notes RAD/Cholangiogram/ O R,Initial IMPRESSION: Fluoroscopic guided intraoperative cholangiogram Electronically Signed: Porfirio Ramirez MD at 15:42 EST , Service support ,
--- NOTE | 2019-02-16 13:00 | GALL_PTH ---
PATIENT: RAI LINK LOC: MS3 U#:[id number] AGE/SX: 48/M ROOM: MS317 RE02/14/[address]: Dr. Dayo Camacho DO : 1970 BED: 1 DIS: 02/19/2019 SPEC #: [id number] RECD: 02/17/19 09:37 STATUS: ALHAJI REQ #: [id number] MARIIA: 02/16/19 13:[address]: Rachel Hoover DEPT: SURGICAL PATHOLOGY RECD BY: Connor Zelaya ENTERED: 02/17/19 10:43 SP TYPE: GALLBLADDE OTHR DR: DO Dr. Mega Steward MD Dr. Tamera Robotham, MD No Primary Care Phys Tissues: Gallbladder, NOS Procedures: Surgery Specimen Level III Comments: @ Ordering doctor for SUIII edited from to @ by ELYSSA at 02/17/19 1132 @ Submitting doctor edited from to @ by RGOOD at 02/17/19 1132 HEADER OPERATION: Laparoscopic, cholecystectomy with IOC PRE-OP DIAGNOSIS: Cholecystitis TISSUE SUBMITTED: Gallbladder MICROSCOPIC DIAGNOSIS Gallbladder, cholecystectomy: Chronic cholecystitis and cholelithiasis. AM:abel 02/20/19 MICROSCOPIC DESCRIPTION Slides are reviewed. GROSS DESCRIPTION Received is one container labeled with the patient's name and designated gallbladder. The specimen consists of a gallbladder measuring 10 x 3.5 x 3.5 cm. The external surface is smooth and glistening. Focally, it is granular, hemorrhagic and contains cautery artifact. The lumen of the gallbladder contains yellow-green mucoid bile and multiple yellow and black calculi ranging in size from <0.1 to 1.6 in greatest dimension. The mucosa is bile-stained and without any mass lesions. The gallbladder wall averages 0.2 cm in thickness and is free of mass lesions. Manager Vehicle sections of the gallbladder and the cystic duct are submitted in one cassette. / AM:abel 02/17/19 TC:3 CPT: 74113
[2019-02-16] MEDS: Bupivacaine Mpf 0.5% 30 ML VIAL (14:00)
--- NOTE | 2019-02-16 16:04 | OP.PCM_ITS ---
Report of Operation Date of Procedure: 02/16/19 Pre-Operative Diagnosis: Acute cholecystitis, gallstone pancreatitis Post-Operative Diagnosis: Same Surgery/Procedure Performed:: Laparoscopic cholecystectomy with cholangiograms Type of Anesthesia:: General/Supplemental Anesthesiologist: Dar Dillard Special Medications: Meropenem 1 g IV every 8 on the floor for acute cholecystitis/pancreatitis Specimen's removed: Gallbladder and stones Estimated Blood Loss (mL): 30 cc Fluids Replaced: 1000 cc Description of Procedure: Indications this is a 48 year-old male who developed abdominal pain/nausea/vomiting and on workup was found to have some pancreatitis, acute cholecystitis with a normal common bile duct. Laparoscopic cholecystectomy was elected. Description procedure: The patient was placed on operating table in supine position. General Anesthesia was induced. A timeout was completed verifying correct patient, procedure, site, position and special equipment prior to beginning procedure. The abdomen was prepped and draped in usual sterile fashion. An incision was made in the natural skin line above the umbilicus. The fascia was elevated and incised. The peritoneum was elevated and incised. Entry into the peritoneum was confirmed visually and no bowel was noted in the vicinity of the incision. Baker trocar was placed. The abdomen was insufflated with carbon dioxide to a pressure of 12-15 mmHg. Patient tolerated insufflation well. The laparoscope was then inserted and abdomen inspected. No injuries from initial trocar placement were noted. Additional trochars were then inserted in the following locations 5 mm trocar in the epigastrium and 2 more 5 mm trochars along the right costal margin. The abdomen was inspected by 250 cc of serosanguineous fluid was seen over the liver and suction. This was sent for Gram stain and culture. We had limited vis ualization due to very distended hepatic/proximal transverse colon with gas. Attempted to place an additional 5 mm port in the right mid abdomen however were unable to improve the visualization due to the amount of gas in the colon. The table is placed in reverse Trendelenburg position with the right side up. The adhesions between the gallbladder and omentum were lysed sharply. The gallbladder wall did tear with normal traction. The stone grasper was used to retrieve gallstones. There were dense adhesions at the neck of the gallbladder. The dome of the gallbladder was grasped with atraumatic grasper passed through the lateral port and retracted over the dome of the liver. Infundibulum was then grasped with atraumatic grasper through the midclavicular port and retracted to the right lower quadrant. This maneuver exposed Calot's triangle. The peritoneum overlying the gallbladder infundibulum was then incised and cystic duct and artery identified and circumferentially dissected. Huizar catheter was used for cholangiograms. The cholangiogram showed good filling of the common bile duct into the duodenum with no filling defects, good filling of the right and left bile ducts as well. The cystic duct and artery were then doubly clipped and divided close to the gallbladder. The gallbladder then dissected from its peritoneal attachments by electrocautery. Hemostasis was checked and the gallbladder and contained stones were removed using the endoscopic retrieval bag through the umbilical port. The gallbladder is passed off table as specimen. The gallbladder fossa was c opiously irrigated with saline and hemostasis obtained. All gallstones were retrieved. There is no evidence of bleeding from the gallbladder fossa or cystic artery leakage of bile from the cystic duct stump. Secondary trochars removed under direct vision. No bleeding was noted the trocar sites. The laparoscope was withdrawn and umbilical trocar removed. The abdomen was allowed to collapse. The fascia of the 12 mm trocar was closed with a [id number] 0 Vicryl suture. The skin was closed with sutures of 4-0 Monocryl and Steri-Strips. The orogastric tube was removed and the patient was extubated. The patient tolerated procedure well and was taken to the postanesthesia care unit in stable condition. - Complications none
[2019-02-16] MEDS: 0.9% Normal Saline 1,000 ML 130 ML IV (18:12)
[2019-02-16] MEDS: Acetaminophen 325 MG Tablet 650 MG PO (22:12)
[2019-02-16] MEDS: 0.9% Saline Lock 10 ML Syringe IV ×2 (22:15→23:42)
[2019-02-17] VITALS (8 sets, daily range): BP systolic 133–153; BP diastolic 01–105; PULSE 105–117; RESP 16–20; TEMP 36.7–38.8; O2SAT 94–98
[2019-02-17] MEDS: 0.9% Normal Saline 1,000 ML 130 ML IV ×3 (02:25→18:38)
[2019-02-17] MEDS: HYDROmorphone 1 MG/ML Syringe IV (05:30)
[2019-02-17 05:51] LABS: Absolute Lymphocyte Count 1.41 X10^3/uL (0.83-4.51); Absolute Neutrophil Count 18.5 X10^3/uL (2.0-7.7); Basophil# 0.04 X10^3/uL; Basophil% 0.2 % (0-1); Eosinophil# 0.12 X10^3/uL; Eosinophils% 0.6 % (0-5); Hematocrit 40.5 % (40-54); Hemoglobin 13.8 g/dL (13.0-16.5); Lymphocyte # 1.41 X10^3/ul (4.0); Lymphocyte % 6.6 % (19-41); Mean Corp Hgb Conc 34.1 g/dL (32-36); Mean Corpuscular Hgb 31.4 pg (27.0-32.0); Mean Platelet Vol. 10.1 fl (6.2-12.0); Monocyte# 1.18 X10^3/uL; Monocyte% 5.5 % (0-10); NRBC Flagged by Analyzer 0 % (0-5); Neutrophil # 18.54 X10^3/uL (2.7-7.7); Neutrophil % 86.4 % (47-70); POSITIVE MORPHOLOGY YES; Platelet Count 141 K/mm3 (150-450); RBC Distribution Width CV 13.3 % (11.6-14.6); RBC Distribution Width SD 45.5 fl (35.1-43.9); White Blood Count 21.4 K/mm3 (4.4-11.0)
[2019-02-17 05:55] LABS: Differential Indicated SCAN CRITERIA MET
[2019-02-17 06:26] LABS: ALB/GLOB Ratio 0.7 RATIO (0.9-2.4); AST(SGOT) 43 U/L (15-37); Alanine Aminotransfer ALT/SGPT 43 U/L (16-61); Albumin, Serum 2.3 g/dL (3.2-5.0); Alkaline Phosphatase 85 U/L (45-117); Anion Gap 5 (5-15); BUN 14 mg/dL (7-18); BUN/Creat Ratio 18.2 RATIO (10-20); Calcium,Total 7.7 mg/dL (8.5-10.1); Chloride 108 mmol/L (98-107); Creatinine, Serum 0.77 mg/dL (0.70-1.30); EST Glomerular Filtration Rate 115 mL/min (>60); Est Glom Filt Rate - Afr Amer 139 mL/min (>60); Estimated Creatinine Clearance 141.75 ml/min; Globulin 3.3 g/dL (2.2-4.2); Glucose 193 mg/dL (74-106); Potassium 3.7 mmol/L (3.5-5.1); Protein, Total 5.6 g/dL (6.4-8.2); Sodium Level 138 mmol/L (136-145)
--- NOTE | 2019-02-17 07:05 | PCM.PN.SRG ---
Patient Problems: Active and Suspected Problems Cholecystitis (Acute) Pancreatitis (Acute) Subjective: Tolerating clears, ambulating, pain controlled, denies any nausea or vomiting, positive flatus - Physical Exam Vitals/I&O's: Vital Signs Temp Pulse Resp BP Pulse Ox 98.2 F 108 H 18 133/85 H 94 02/17/19 04:39 02/17/19 04:39 02/17/19 04:39 02/17/19 04:39 02/17/19 04:39 Oxygen Flow Rate (L/min) 3 Oxygen Delivery Method Room Air Weight: 253 lb 4.978 oz Body Mass Index (BMI) 31.6 Intake and Output for Last 24 Hours 02/15/19 02/16/19 02/17/19 23:59 23:59 23:59 Intake Total 8220.00 / 8220.00 3536.67 / 4086.67 1880 / 1880 Output Total 975 / 975 1050 / 1250 200 / 200 Balance 7245.00 / 7245.00 2486.67 / 2836.67 1680 / 1680 General: Alert, Oriented x3, Cooperative, No apparent distress HEENT: Atraumatic Lungs: Normal air movement Cardiovascular: Regular rate Abdomen: Soft, Distended - Mild to moderate, Tender - Appropriate near incisions clean dry and intact with op sites Extremities: No clubbing, No cyanosis, No edema Neurological: Cranial nerves II-XII grossly intact Psych/Mental Status: Normal Affect Laboratory Results 02/14/19 13:51: Diff Path Review Reviewed 02/15/19 05:25: Diff Path Review Reviewed 02/17/19 05:40: WBC 21.4 H, RBC 4.40 L, Hgb 13.8, Hct 40.5, MCV 92.0, MCH 31.4, MCHC 34.1, RDW Std Deviation 45.5 H, RDW Coeff of George 13.3, Plt Count 141 L, MPV 10.1, Immature Gran % (Auto) 0.700, Neut % (Auto) 86.4 H, Lymph % (Auto) 6.6 L, Prentiss % (Auto) 5.5, Eos % (Auto) 0.6, Baso % (Auto) 0.2, Absolute Neuts (auto) 18.5 H, Absolute Lymphs (auto) 1.41, Nucleated RBC % 0 02/17/19 05:40: Sodium 138, Potassium 3.7, Chloride 108 H, Carbon Dioxide 25.0, Anion Gap 5, BUN 14, Creatinine 0.77, Estim Creat Clear Calc 141.75, Est GFR (MDRD) Af Amer 139, Est GFR (MDRD) Non-Af 115, BUN/Creatinine Ratio 18.2, Glucose 193 H, Calcium 7.7 L, Total Bilirubin 1.10 H, AST 43 H, ALT 43, Alkaline Phosphatase 85, Total Protein 5.6 L, Albumin 2.3 L, Globulin 3.3, Albumin/Globulin Ratio 0.7 L Current Medications Acetaminophen (Tylenol) 650 mg PO Q6H PRN PRN PRN Reason: Pain or Fever Last Admin: 02/16/19 22:12 Dose: 650 mg Documented by: Enoxaparin Sodium (Lovenox) 40 mg SC DAILY [facility] Last Admin: 02/16/19 09:02 Dose: Not Given Documented by: Hydromorphone HCl (Dilaudid Inj) 1 mg IV Q3H PRN PRN PRN Reason: Pain Score 4-10/10 Last Admin: 02/17/19 05:30 Dose: 1 mg Documented by: Sodium Chloride () 1,000 mls @ 130 mls/hr IV .Q7H42M [facility] Last Admin: 02/17/19 02:25 Dose: 130 mls/hr Documented by: Pantoprazole Sodium 40 mg/ (Sodium Chloride) 110 mls @ 330 mls/hr IV Q12 [facility] Last Infusion: 02/17/19 00:30 Dose: Infused Documented by: Meropenem 1 gm/ Sodium (Chloride) 120 mls @ 240 mls/hr IV Q8 [facility] Last Infusion: 02/17/19 06:26 Dose: Infused Documented by: Nicotine (Nicoderm Cq (Pbkc)) 21 mg TRANSDERM. DAILY [facility] Last Admin: 02/16/19 09:00 Dose: 21 mg Documented by: Ondansetron HCl (Zofran) 4 mg IV Q8H PRN PRN PRN Reason: NAUSEA/VOMITING Last Admin: 02/16/19 09:04 Dose: 4 mg Documented by: Oxycodone HCl (Oxyir) 5 - 10 mg PO Q4H PRN PRN PRN Reason: Pain Score 6-10/10 Prochlorperazine Edisylate (Compazine Iv) 5 mg IV Q4H PRN PRN PRN Reason: NAUSEA/VOMITING Last Admin: 02/15/19 16:12 Dose: 5 mg Documented by: Promethazine HCl (Phenergan) 6.25 mg IV Q6H PRN PRN PRN Reason: NAUSEA/VOMITING Last Admin: 02/15/19 11:31 Dose: 6.25 mg Documented by: Sodium Chloride () 10 - 40 ml IV UD PRN PRN Reason: SALINE FLUSH Last Admin: 02/16/19 23:42 Dose: 10 ml Documented by: Medical Necessity - Tobacco Use Smoking Status: Current every day smoker Tobacco Use: Secondhand, Cigarettes Assessment/Plan All Active Problems Cholecystitis (Acute) Pancreatitis (Acute) 48-year-old male status post laparoscopic cholecystectomy postop day 1, gallstone pancreatitis resolved 1. advance to fulls 2. continue abx, wbc 21 3. Continue ambulation Rachel Hoover M.D. Pager: [phone] [facility] [address] [place] [address], [address] [place] [address] Office: [phone]
[2019-02-17] MEDS: Enoxaparin 40 MG/0.4 ML Syringe SC (08:46)
--- NOTE | 2019-02-17 09:22 | PN_ITS ---
Patient Problems: Active and Suspected Problems Cholecystitis (Acute) Pancreatitis (Acute) Reason for Visit: pancreatitis Subjective: Still with abdominal pain. Better overall from admission. Vitals/I&O's: Vital Signs Temp Pulse Resp BP Pulse Ox 36.8 C 110 H 20 H 144/97 H 94 02/17/19 08:38 02/17/19 08:38 02/17/19 08:38 02/17/19 08:38 02/17/19 08:38 Oxygen Flow Rate (L/min) 3 Oxygen Delivery Method Room Air Weight: 114.9 kg Body Mass Index (BMI) 31.6 Intake and Output for Last 24 Hours 02/15/19 02/16/19 02/17/19 23:59 23:59 23:59 Intake Total 8220.00 / 8220.00 3536.67 / 4086.67 2824.17 / 2824.17 Output Total 975 / 975 1050 / 1250 200 / 200 Balance 7245.00 / 7245.00 2486.67 / 2836.67 2624.17 / 2624.17 General: Alert, Cooperative, No apparent distress HEENT: Atraumatic, Normocephalic Oral: Moist Mucosa, No Gingival or Mucosal Lesions/ Ulcerations Neck: No Nodes, Trachea Midline Lungs: Clear to auscultation, Normal air movement, No rhonchi, No wheeze, No rales Cardiovascular: Regular rate, Regular Rhythm, Normal S1, Normal S2, No murmurs Abdomen: Bowel Sounds Present, Distended - not taut, Tender - epigastrum Extremities: No edema, No Calf Tenderness Skin: No rashes, No breakdown Musculoskeletal: No Tenderness to Palpation of Joints or Extremities, No Muscle Wasting Psych/Mental Status: Normal Affect, Appropriate Laboratory Results 02/14/19 13:51: Diff Path Review Reviewed 02/15/19 05:25: Diff Path Review Reviewed 02/17/19 05:40: WBC 21.4 H, RBC 4.40 L, Hgb 13.8, Hct 40.5, MCV 92.0, MCH 31.4, MCHC 34.1, RDW Std Deviation 45.5 H, RDW Coeff of George 13.3, Plt Count 141 L, MPV 10.1, Immature Gran % (Auto) 0.700, Neut % (Auto) 86.4 H, Lymph % (Auto) 6.6 L, [place] % (Auto) 5.5, Eos % (Auto) 0.6, Baso % (Auto) 0.2, Absolute Neuts (auto) 18.5 H, Absolute Lymphs (auto) 1.41, Nucleated RBC % 0 02/17/19 05:40: Sodium 138, Potassium 3.7, Chloride 108 H, Carbon Dioxide 25.0, Anion Gap 5, BUN 14, Creatinine 0.77, Estim Creat Clear Calc 141.75, Est GFR (MDRD) Af Amer 139, Est GFR (MDRD) Non-Af 115, BUN/Creatinine Ratio 18.2, Glucose 193 H, Calcium 7.7 L, Total Bilirubin 1.10 H, AST 43 H, ALT 43, Alkaline Phosphatase 85, Total Protein 5.6 L, Albumin 2.3 L, Globulin 3.3, Albumin/Globulin Ratio 0.7 L Current Medications Acetaminophen (Tylenol) 650 mg PO Q6H PRN PRN PRN Reason: Pain or Fever Last Admin: 02/16/19 22:12 Dose: 650 mg Documented by: Enoxaparin Sodium (Lovenox) 40 mg SC DAILY [facility] Last Admin: 02/17/19 08:46 Dose: 40 mg Documented by: Hydromorphone HCl (Dilaudid Inj) 0.5 - 1 mg IV Q3H PRN PRN PRN Reason: Pain Score 4-10/10 Sodium Chloride () 1,000 mls @ 130 mls/hr IV .Q7H42M [facility] Last Infusion: 02/17/19 09:15 Dose: 130 mls/hr Documented by: Meropenem 1 gm/ Sodium (Chloride) 120 mls @ 240 mls/hr IV Q8 [facility] Last Infusion: 02/17/19 06:26 Dose: Infused Documented by: Nicotine (Nicoderm Cq (Pbkc)) 21 mg TRANSDERM. DAILY [facility] Last Admin: 02/17/19 08:47 Dose: 21 mg Documented by: Ondansetron HCl (Zofran) 4 mg IV Q8H PRN PRN PRN Reason: NAUSEA/VOMITING Last Admin: 02/16/19 09:04 Dose: 4 mg Documented by: Oxycodone HCl (Oxyir) 5 - 10 mg PO Q4H PRN PRN PRN Reason: Pain Score 6-10/10 Pantoprazole Sodium (Protonix) 40 mg PO BID INGRID Prochlorperazine Edisylate (Compazine Iv) 5 mg IV Q4H PRN PRN PRN Reason: NAUSEA/VOMITING Last Admin: 02/15/19 16:12 Dose: 5 mg Documented by: Promethazine HCl (Phenergan) 6.25 mg IV Q6H PRN PRN PRN Reason: NAUSEA/VOMITING Last Admin: 02/15/19 11:31 Dose: 6.25 mg Documented by: Sodium Chloride () 10 - 40 ml IV UD PRN PRN Reason: SALINE FLUSH Last Admin: 02/16/19 23:42 Dose: 10 ml Documented by: STROKE Vital Signs/Narrative: Vital Signs Temp Pulse Resp BP Pulse Ox 02/17/19 08:38 36.8 C 110 H 20 H 144/97 H 94 Medical Necessity - Tobacco Use Smoking Status: Current every day smoker Tobacco Use: Secondhand, Cigarettes Assessment/Plan All Active Problems Cholecystitis (Acute) Pancreatitis (Acute) 1. acute gallstone pancreatitis * lipase improved * supportive mgmt * continue IVF 2. cholecystitis * acute * S/P lap bibiana on 02/16 * on meropenem 3. sepsis * 2/2 above * on meropenem * treat the underlying processes 4. VTE prophylaxis: mod risk. Enoxaparin. 5. Disposition: monitor. anticipate discharge in 24-48h. Code Visit Inpatient E&M: 16031 Subs Hosp L2
[2019-02-17] MEDS: oxyCODONE 5 MG Tablet PO ×3 (10:41→20:08)
--- NOTE | 2019-02-17 11:50 | CASEMGMT ---
RN TIM Face to Face with patient for initial transition planning/care coordination assessment. RN CM introduced self and role at [facility]. Patient sitting in chair, alert and oriented. Patient willing to participate in assessment and is able to answer all questions appropriately. Care providers, pharmacy, and demographics verified. Patient wishes to discharge home, denies need for home health at this time. Patient states he has no further needs or concerns at this time. CM to follow for discharge planning needs that may arise. PCP: No PCP, list provided to patient Specialists: none Preferred Pharmacy: [facility] Insurance: Health Plan One Prescription Benefit: yes Living Will/HPOA: none LNOK: Living Arrangements: Patient lives with in [place] apt. Patient independent at home prior to hospitalization. Transportation: self/ DME/HHC: Patient denies any DME in the home. Denies previous HHC Disposition Plan: Patient to discharge home with family support and follow-up plans in place. Carmen REYES, RN, CM
[2019-02-17 12:21] LABS: Pathologist Review Reviewed
--- NOTE | 2019-02-17 13:58 | DCINST_ITS ---
Discharge Diet: Light diet - advance as tolerated Discharge Activity: May not drive while taking narcotic pain medications. May shower in (days): 1 - 24 hr from surgery Lifting Restrictions: No lifting greater than 20 pounds x 3 weeks Call your doctor if your incision/area has: Continuous Slow Oozing, Sudden Increased Bleeding, Increased Pain/ Swelling, Increased Redness, Foul Smelling Discharge, Swelling at the incision site Call your doctor if you observe: Fever of 101 or Higher Remove Dressing in (days):: 1 - Okay to remove OpSite tomorrow, Steri-Strips daily for 7 to 10 days did not follow-up in 10 days okay to remove Additional Instructions: Okay to take ibuprofen 400-600 mg PO q6hr PRN along with the Percocet. Avoid Tylenol since there is already Tylenol in the Percocet. Take all pain meds with food. Percocet can cause constipation recommend taking daily stool softener (i.e. Colace/docusate) while taking the pain meds. Recommend starting some MiraLAX in 1 to 2 days if no bowel movement. If still no bowel movement the following day recommend taking magnesium citrate half the bottle and waiting 4-6 hours if still no results take the other half the bottle. Note given to patient for work excuse from 02/14/2019 till 03/05/2019 Allergies/Adverse Reactions: Allergies No Known Allergies Allergy (Verified 02/14/19 13:45) Medications to take at Discharge Oxycodone HCl/Acetaminophen [Percocet 5/325] 1 - 2 tablet PO Q6H PRN PRN 4 Days #20 tablet 02/17/19 Pantoprazole Sodium [Protonix] 40 mg PO DAILY #30 tab 02/17/19 The following prescriptions were given: Oxycodone HCl/Acetaminophen [Percocet 5/325] 1 - 2 tablet PO Q6H PRN PRN 4 Days #20 tablet PRN Reason: Pain Transmission Status: Sent to [facility] Pantoprazole Sodium [Protonix] 40 mg PO DAILY #30 tab Transmission Status: Pending to [facility] Primary Care Physician: Care Physician,No Primary [Primary Care Provider] - Test Results: Test results from this visit will be discussed in further detail at your follow- up appointment, if applicable. Please Follow Up With: Rachel Hoover MD - After 5 PM and on the weekends call [phone] with any concerns When: Call the office for follow-up appointment in 2 weeks
[2019-02-17] MEDS: Ibuprofen 400 MG Tablet PO (14:06)
--- NOTE | 2019-02-17 15:40 | CHAPLAIN ---
Type of Pastoral Visit _x__ Initial Visit ___ Follow-up Visit ___ On-call Visit ___ General Patient Visit ___ Spiritual Assessment ___ Family Conference ___ Bereavement ___ Rapid Response ___ Code Blue ___ Other (describe below) Pastoral Care Referral From _x__ Patient ___ Family ___ Nurse ___ Physician ___ Urinalysis Technician ___ Custom Dressmaker ___ Other (describe below) Sacrament/Intervention _x__ Active listening ___ Anointing ___ Anabaptist ___ Bereavement ___ Communion _x__ Maddie exploration ___ _x__ Life review _x__ Prayer ___ Reconciliation ___ Sacrament of Sick _x__ Supportive presence ___ Wedding ___ Other (describe below) Pastoral Comments patient expresses worries about paying for his rent; pt is tearful as he talks about his spiritual life and the lack of that of his family
[2019-02-18] MEDS: Ibuprofen 400 MG Tablet PO (00:35)
[2019-02-18 02:10] VITALS: BP 145/107; PULSE 112; RESP 20; TEMP 37.5; O2SAT 96
[2019-02-18 02:25] VITALS: PULSE 111; RESP 20
[2019-02-18] MEDS: 0.9% Normal Saline 1,000 ML 130 ML IV ×2 (02:48→11:03)
[2019-02-18] MEDS: Pantoprazole Sodium 40 MG Tablet PO ×3 (06:34→21:10)
[2019-02-18] MEDS: oxyCODONE 5 MG Tablet PO ×3 (06:37→23:29)
[2019-02-18 07:20] LABS: Absolute Lymphocyte Count 1.24 X10^3/uL (0.83-4.51); Absolute Neutrophil Count 16.9 X10^3/uL (2.0-7.7); Basophil# 0.05 X10^3/uL; Basophil% 0.3 % (0-1); Eosinophil# 0.03 X10^3/uL; Eosinophils% 0.2 % (0-5); Hematocrit 39.5 % (40-54); Hemoglobin 13.6 g/dL (13.0-16.5); Lymphocyte # 1.24 X10^3/ul (4.0); Lymphocyte % 6.3 % (19-41); Mean Corp Hgb Conc 34.4 g/dL (32-36); Mean Corpuscular Hgb 31.6 pg (27.0-32.0); Mean Corpuscular Volume 91.9 fL (80-94); Mean Platelet Vol. 10.8 fl (6.2-12.0); Monocyte# 1.37 X10^3/uL; Monocyte% 6.9 % (0-10); NRBC Flagged by Analyzer 0 % (0-5); Neutrophil # 16.93 X10^3/uL (2.7-7.7); Neutrophil % 85.6 % (47-70); Platelet Count 169 K/mm3 (150-450); RBC Distribution Width CV 13.2 % (11.6-14.6); RBC Distribution Width SD 44.7 fl (35.1-43.9); White Blood Count 19.8 K/mm3 (4.4-11.0)
[2019-02-18 07:43] LABS: ALB/GLOB Ratio 0.6 RATIO (0.9-2.4); AST(SGOT) 29 U/L (15-37); Alanine Aminotransfer ALT/SGPT 40 U/L (16-61); Albumin, Serum 2.2 g/dL (3.2-5.0); Alkaline Phosphatase 97 U/L (45-117); Anion Gap 7 (5-15); BUN 9 mg/dL (7-18); BUN/Creat Ratio 14.5 RATIO (10-20); Calcium,Total 7.9 mg/dL (8.5-10.1); Chloride 107 mmol/L (98-107); Creatinine, Serum 0.62 mg/dL (0.70-1.30); EST Glomerular Filtration Rate 147 mL/min (>60); Est Glom Filt Rate - Afr Amer 178 mL/min (>60); Estimated Creatinine Clearance 176.04 ml/min; Globulin 3.4 g/dL (2.2-4.2); Glucose 164 mg/dL (74-106); Lipase 141 U/L (73-393); Potassium 3.2 mmol/L (3.5-5.1); Protein, Total 5.6 g/dL (6.4-8.2); Sodium Level 138 mmol/L (136-145)
--- NOTE | 2019-02-18 07:48 | PN.SURG_ITS ---
Subjective: Patient reports he had some epigastric pain and nausea yesterday after drinking some juice that he did not agree with. This morning he says that it is getting better he still having some epigastric pain. - Physical Exam Vitals/I&O's: Vital Signs Temp Pulse Resp BP Pulse Ox 99.5 F H 111 H 20 H 145/107 H 96 02/18/19 02:10 02/18/19 02:25 02/18/19 02:25 02/18/19 02:10 02/18/19 02:10 Oxygen Flow Rate (L/min) 3 Oxygen Delivery Method Room Air Weight: 253 lb 4.978 oz Body Mass Index (BMI) 31.6 Intake and Output for Last 24 Hours 02/16/19 02/17/19 02/18/19 23:59 23:59 23:59 Intake Total 3536.67 / 4086.67 4818.17 / 5068.17 1770 / 1770 Output Total 1050 / 1250 950 / 1275 725 / 725 Balance 2486.67 / 2836.67 3868.17 / 3793.17 1045 / 1045 General: Alert, Oriented x3 Lungs: Normal air movement Cardiovascular: Regular rate, Regular Rhythm Abdomen: Soft, Non-Distended, Tender Microbiology Past 72 Hours 02/16/19 14:04 Aspirate - Abdominal Gram Stain - Final 02/16/19 14:04 Aspirate - Abdominal Wound Culture - Preliminary No growth-Final to follow Laboratory Results 02/16/19 05:34: Diff Path Review Reviewed 02/18/19 07:00: WBC 19.8 H, RBC 4.30 L, Hgb 13.6, Hct 39.5 L, MCV 91.9, MCH 31.6 , MCHC 34.4, RDW Std Deviation 44.7 H, RDW Coeff of George 13.2, Plt Count 169, MPV 10.8, Immature Gran % (Auto) 0.700, Neut % (Auto) 85.6 H, Lymph % (Auto) 6.3 L, [place] % (Auto) 6.9, Eos % (Auto) 0.2, Baso % (Auto) 0.3, Absolute Neuts (auto) 16.9 H, Absolute Lymphs (auto) 1.24, Nucleated RBC % 0 02/18/19 07:00: Sodium 138, Potassium 3.2 L, Chloride 107, Carbon Dioxide 24.0, Anion Gap 7, BUN 9, Creatinine 0.62 L, Estim Creat Clear Calc 176.04, Est GFR (MDRD) Af Amer 178, Est GFR (MDRD) Non-Af 147, BUN/Creatinine Ratio 14.5, Glucose 164 H, Calcium 7.9 L, Total Bilirubin 1.50 H, AST 29, ALT 40, Alkaline Phosphatase 97, Total Protein 5.6 L, Albumin 2.2 L, Globulin 3.4, Albumin/Globulin Ratio 0.6 L, Lipase 141 Current Medications Acetaminophen (Tylenol) 650 mg PO Q6H PRN PRN PRN Reason: Pain or Fever Last Admin: 02/16/19 22:12 Dose: 650 mg Documented by: Enoxaparin Sodium (Lovenox) 40 mg SC DAILY [facility] Last Admin: 02/17/19 08:46 Dose: 40 mg Documented by: Hydromorphone HCl (Dilaudid Inj) 0.5 - 1 mg IV Q3H PRN PRN PRN Reason: Pain Score 4-10/10 Sodium Chloride () 1,000 mls @ 130 mls/hr IV .Q7H42M [facility] Last Admin: 02/18/19 02:48 Dose: 130 mls/hr Documented by: Meropenem 1 gm/ Sodium (Chloride) 120 mls @ 240 mls/hr IV Q8 [facility] Last Infusion: 02/18/19 06:59 Dose: Infused Documented by: Ibuprofen (Motrin) 400 - 600 mg PO Q6H PRN PRN PRN Reason: Pain Score 1-10/10 Last Admin: 02/18/19 00:35 Dose: 600 mg Documented by: Nicotine (Nicoderm Cq (Pbkc)) 21 mg TRANSDERM. DAILY [facility] Last Admin: 02/17/19 08:47 Dose: 21 mg Documented by: Ondansetron HCl (Zofran) 4 mg IV Q8H PRN PRN PRN Reason: NAUSEA/VOMITING Last Admin: 02/16/19 09:04 Dose: 4 mg Documented by: Oxycodone HCl (Oxyir) 5 - 10 mg PO Q4H PRN PRN PRN Reason: Pain Score 6-10/10 Last Admin: 02/18/19 06:37 Dose: 10 mg Documented by: Pantoprazole Sodium (Protonix) 40 mg PO BID INGRID Last Admin: 02/18/19 06:34 Dose: 40 mg Documented by: Prochlorperazine Edisylate (Compazine Iv) 5 mg IV Q4H PRN PRN PRN Reason: NAUSEA/VOMITING Last Admin: 02/15/19 16:12 Dose: 5 mg Documented by: Promethazine HCl (Phenergan) 6.25 mg IV Q6H PRN PRN PRN Reason: NAUSEA/VOMITING Last Admin: 02/15/19 11:31 Dose: 6.25 mg Documented by: Sodium Chloride () 10 - 40 ml IV UD PRN PRN Reason: SALINE FLUSH Last Admin: 02/16/19 23:42 Dose: 10 ml Documented by: Medical Necessity - Tobacco Use Smoking Status: Current every day smoker Tobacco Use: Secondhand, Cigarettes Assessment/Plan All Active Problems Cholecystitis (Acute) Pancreatitis (Acute) 48-year-old male with pancreatitis status post laparoscopic cholecystectomy 1. The patient is having some epigastric pain and nausea this morning. I advised him to continue liquids until this resolved. His lipase is normal today and his white count is decreasing. He is hypokalemic and potassium has been ordered. Amadou Cash MD Pager: [facility] [address] [place] [address], [address] [place] [address] Office:
[2019-02-18 09:25] VITALS: BP 144/104; PULSE 109; RESP 16; TEMP 37.1; O2SAT 95
[2019-02-18] MEDS: Acetaminophen 325 MG Tablet 650 MG PO ×2 (09:26→20:20)
[2019-02-18] MEDS: Enoxaparin 40 MG/0.4 ML Syringe SC (09:29)
--- NOTE | 2019-02-18 10:01 | PCM.PN.HOSP ---
Reason for Visit: pancreatitis Subjective: Abdomen less painful. Tolerating some liquids. + BM and flatus. Vitals/I&O's: Vital Signs Temp Pulse Resp BP Pulse Ox 37.1 C 109 H 16 144/104 H 95 02/18/19 09:25 02/18/19 09:25 02/18/19 09:25 02/18/19 09:25 02/18/19 09:25 Oxygen Flow Rate (L/min) 3 Oxygen Delivery Method Room Air Weight: 114.9 kg Body Mass Index (BMI) 31.6 Intake and Output for Last 24 Hours 02/16/19 02/17/19 02/18/19 23:59 23:59 23:59 Intake Total 3536.67 / 4086.67 4818.17 / 5068.17 1770 / 1770 Output Total 1050 / 1250 950 / 1275 725 / 725 Balance 2486.67 / 2836.67 3868.17 / 3793.17 1045 / 1045 General: Alert, No apparent distress HEENT: Atraumatic, Normocephalic Oral: Moist Mucosa, No Gingival or Mucosal Lesions/ Ulcerations Neck: No Nodes, Trachea Midline Lungs: Clear to auscultation, Normal air movement, No rhonchi, No wheeze, No rales Cardiovascular: Regular rate, Regular Rhythm, Normal S1, Normal S2, No murmurs Abdomen: Bowel Sounds Present, Soft, No Hepato-splenomegaly, Distended - not taut, Tender Extremities: No edema, No Calf Tenderness Skin: No rashes, No breakdown, - - ecchymosis around umbilical incision Psych/Mental Status: Normal Affect, Appropriate Microbiology Past 72 Hours 02/16/19 14:04 Aspirate - Abdominal Gram Stain - Final 02/16/19 14:04 Aspirate - Abdominal Wound Culture - Preliminary No growth-Final to follow Laboratory Results 02/16/19 05:34: Diff Path Review Reviewed 02/18/19 07:00: WBC 19.8 H, RBC 4.30 L, Hgb 13.6, Hct 39.5 L, MCV 91.9, MCH 31.6, MCHC 34.4, RDW Std Deviation 44.7 H, RDW Coeff of George 13.2, Plt Count 169, MPV 10.8, Immature Gran % (Auto) 0.700, Neut % (Auto) 85.6 H, Lymph % (Auto) 6.3 L, [place] % (Auto) 6.9, Eos % (Auto) 0.2, Baso % (Auto) 0.3, Absolute Neuts (auto) 16.9 H, Absolute Lymphs (auto) 1.24, Nucleated RBC % 0 02/18/19 07:00: Sodium 138, Potassium 3.2 L, Chloride 107, Carbon Dioxide 24.0, Anion Gap 7, BUN 9, Creatinine 0.62 L, Estim Creat Clear Calc 176.04, Est GFR (MDRD) Af Amer 178, Est GFR (MDRD) Non-Af 147, BUN/Creatinine Ratio 14.5, Glucose 164 H, Calcium 7.9 L, Total Bilirubin 1.50 H, AST 29, ALT 40, Alkaline Phosphatase 97, Total Protein 5.6 L, Albumin 2.2 L, Globulin 3.4, Albumin/Globulin Ratio 0.6 L, Lipase 141 Current Medications Acetaminophen (Tylenol) 650 mg PO Q6H PRN PRN PRN Reason: Pain or Fever Last Admin: 02/18/19 09:26 Dose: 650 mg Documented by: Enoxaparin Sodium (Lovenox) 40 mg SC DAILY [facility] Last Admin: 02/18/19 09:29 Dose: 40 mg Documented by: Hydromorphone HCl (Dilaudid Inj) 0.5 - 1 mg IV Q3H PRN PRN PRN Reason: Pain Score 4-10/10 Sodium Chloride () 1,000 mls @ 130 mls/hr IV .Q7H42M [facility] Last Admin: 02/18/19 02:48 Dose: 130 mls/hr Documented by: Meropenem 1 gm/ Sodium (Chloride) 120 mls @ 240 mls/hr IV Q8 [facility] Last Infusion: 02/18/19 06:59 Dose: Infused Documented by: Potassium Chloride () 10 meq in 100 mls @ 100 mls/hr IV BOLUS Q1H [facility] Stop: 02/18/19 13:59 Ibuprofen (Motrin) 400 - 600 mg PO Q6H PRN PRN PRN Reason: Pain Score 1-10/10 Last Admin: 02/18/19 00:35 Dose: 600 mg Documented by: Nicotine (Nicoderm Cq (Pbkc)) 21 mg TRANSDERM. DAILY [facility] Last Admin: 02/18/19 09:27 Dose: 21 mg Documented by: Ondansetron HCl (Zofran) 4 mg IV Q8H PRN PRN PRN Reason: NAUSEA/VOMITING Last Admin: 02/16/19 09:04 Dose: 4 mg Documented by: Oxycodone HCl (Oxyir) 5 - 10 mg PO Q4H PRN PRN PRN Reason: Pain Score 6-10/10 Last Admin: 02/18/19 06:37 Dose: 10 mg Documented by: Pantoprazole Sodium (Protonix) 40 mg PO BID INGRID Last Admin: 02/18/19 09:27 Dose: 40 mg Documented by: Prochlorperazine Edisylate (Compazine Iv) 5 mg IV Q4H PRN PRN PRN Reason: NAUSEA/VOMITING Last Admin: 02/15/19 16:12 Dose: 5 mg Documented by: Promethazine HCl (Phenergan) 6.25 mg IV Q6H PRN PRN PRN Reason: NAUSEA/VOMITING Last Admin: 02/15/19 11:31 Dose: 6.25 mg Documented by: Sodium Chloride () 10 - 40 ml IV UD PRN PRN Reason: SALINE FLUSH Last Admin: 02/16/19 23:42 Dose: 10 ml Documented by: STROKE Vital Signs/Narrative: Vital Signs Temp Pulse Resp BP Pulse Ox 02/18/19 09:25 37.1 C 109 H 16 144/104 H 95 Medical Necessity - Tobacco Use Smoking Status: Current every day smoker Tobacco Use: Secondhand, Cigarettes Assessment/Plan All Active Problems Cholecystitis (Acute) Pancreatitis (Acute) 1. acute gallstone pancreatitis lipase improved supportive mgmt continue IVF 2. cholecystitis acute S/P lap bibiana on 02/16 on meropenem 3. sepsis 2/2 above on meropenem treat the underlying processes still with fevers, check blood cultures 4. VTE prophylaxis: mod risk. Enoxaparin. 5. hypokalemia replace check magnesium 6. Disposition: monitor. on hold given fever. Code Visit Inpatient E&M: 64364 Subs Hosp L2
[2019-02-18 10:18] LABS: Magnesium 2.2 mg/dL (1.6-2.6)
[2019-02-18] MEDS: Potassium Chloride 10mEq/100mL 10 MEQ/100 ML IV.SOLN. 100 MEQ IV BOLUS ×4 (11:15→15:39)
[2019-02-18] MEDS: 0.9% Saline Lock 10 ML Syringe IV ×2 (12:28→18:46)
[2019-02-18] MEDS: HYDROmorphone 1 MG/ML Syringe IV ×2 (12:29→18:45)
[2019-02-18 13:00] VITALS: BP 151/98; PULSE 100; RESP 18; TEMP 36.5; O2SAT 96
[2019-02-18 20:05] VITALS: BP 149/90; PULSE 105; RESP 18; TEMP 37.7; O2SAT 97
[2019-02-18] MEDS: 0.9% Normal Saline 1,000 ML 100 ML IV (21:10)
[2019-02-19 04:51] VITALS: BP 140/110; PULSE 100; RESP 18; TEMP 37.4; O2SAT 96
[2019-02-19] MEDS: oxyCODONE 5 MG Tablet PO (04:58)
[2019-02-19] MEDS: 0.9% Normal Saline 1,000 ML 130 ML IV (04:59)
[2019-02-19 06:50] LABS: Basophil# 0.09 X10^3/uL; Basophil% 0.4 % (0-1); Eosinophil# 0.06 X10^3/uL; Eosinophils% 0.3 % (0-5); Hematocrit 37.9 % (40-54); Hemoglobin 13.3 g/dL (13.0-16.5); Lymphocyte % 6.8 % (19-41); Mean Corp Hgb Conc 35.1 g/dL (32-36); Mean Corpuscular Hgb 31.9 pg (27.0-32.0); Mean Corpuscular Volume 90.9 fL (80-94); Mean Platelet Vol. 10.5 fl (6.2-12.0); Monocyte# 1.68 X10^3/uL; Monocyte% 8.2 % (0-10); NRBC Flagged by Analyzer 0 % (0-5); Neutrophil % 82.9 % (47-70); POSITIVE DIFFERENTIAL YES; Platelet Count 186 K/mm3 (150-450); RBC Distribution Width CV 13.1 % (11.6-14.6); RBC Distribution Width SD 43.8 fl (35.1-43.9); Red Blood Count 4.17 M/mm3 (4.6-6.2); White Blood Count 20.5 K/mm3 (4.4-11.0)
[2019-02-19 06:58] LABS: Differential Indicated SCAN CRITERIA MET
[2019-02-19 07:07] LABS: ALB/GLOB Ratio 0.6 RATIO (0.9-2.4); AST(SGOT) 24 U/L (15-37); Alanine Aminotransfer ALT/SGPT 34 U/L (16-61); Alkaline Phosphatase 106 U/L (45-117); Anion Gap 8 (5-15); BUN 7 mg/dL (7-18); Calcium,Total 7.6 mg/dL (8.5-10.1); Chloride 103 mmol/L (98-107); Creatinine, Serum 0.58 mg/dL (0.70-1.30); EST Glomerular Filtration Rate 158 mL/min (>60); Est Glom Filt Rate - Afr Amer 191 mL/min (>60); Estimated Creatinine Clearance 188.18 ml/min; Globulin 3.4 g/dL (2.2-4.2); Glucose 163 mg/dL (74-106); Potassium 2.9 mmol/L (3.5-5.1); Protein, Total 5.4 g/dL (6.4-8.2); Sodium Level 135 mmol/L (136-145)
--- NOTE | 2019-02-19 07:58 | PN.SURG_ITS ---
Subjective: Patient reports he is passing copious gas and having bowel movements. He also reports he tolerated a lot of clear liquids and no nausea or vomiting or abdominal pain. He says his abdominal pain is very minimal this morning and he feels much better and he would like to eat and go home. - Physical Exam Vitals/I&O's: Vital Signs Temp Pulse Resp BP Pulse Ox 99.3 F H 100 18 140/110 H 96 02/19/19 04:51 02/19/19 04:51 02/19/19 04:51 02/19/19 04:51 02/19/19 04:51 Oxygen Flow Rate (L/min) 3 Oxygen Delivery Method Room Air Weight: 253 lb 4.978 oz Body Mass Index (BMI) 31.6 Intake and Output for Last 24 Hours 02/17/19 02/18/19 02/19/19 23:59 23:59 23:59 Intake Total 4818.17 / 5068.17 5687.67 / 5687.67 1073.34 / 1073.34 Output Total 950 / 1275 1125 / 1125 Balance 3868.17 / 3793.17 4562.67 / 4562.67 1073.34 / 1073.34 General: Alert, Oriented x3 Lungs: Normal air movement Abdomen: Soft, Non Tender, Non-Distended Microbiology Past 72 Hours 02/16/19 14:04 Aspirate - Abdominal Gram Stain - Final 02/16/19 14:04 Aspirate - Abdominal Wound Culture - Preliminary No growth-Final to follow 02/16/19 14:04 Aspirate - Abdominal Anaerobic Culture - Preliminary No growth in 48 hours. Laboratory Results 02/18/19 07:00: Magnesium 2.2 02/19/19 06:12: WBC 20.5 H, RBC 4.17 L, Hgb 13.3, Hct 37.9 L, MCV 90.9, MCH 31.9, MCHC 35.1, RDW Std Deviation 43.8, RDW Coeff of George 13.1, Plt Count 186, MPV 10.5, Immature Gran % (Auto) 1.400 H, Neut % (Auto) 82.9 H, Lymph % (Auto) 6.8 L, [place] % (Auto) 8.2, Eos % (Auto) 0.3, Baso % (Auto) 0.4, Absolute Neuts (auto) 17.0 H, Absolute Lymphs (auto) 1.40, Nucleated RBC % 0, Diff Path Review June02/19/19 06:12: Sodium 135 L, Potassium 2.9 L, Chloride 103, Carbon Dioxide 24.0, Anion Gap 8, BUN 7, Creatinine 0.58 L, Estim Creat Clear Calc 188.18, Est GFR (MDRD) Af Amer 191, Est GFR (MDRD) Non-Af 158, BUN/Creatinine Ratio 12.0, Glucose 163 H, Calcium 7.6 L, Total Bilirubin 2.00 H, AST 24, ALT 34, Alkaline Phosphatase 106, Total Protein 5.4 L, Albumin 2.0 L, Globulin 3.4, Albumin/Globulin Ratio 0.6 L Current Medications Acetaminophen (Tylenol) 650 mg PO Q6H PRN PRN PRN Reason: Pain or Fever Last Admin: 02/18/19 20:20 Dose: 650 mg Documented by: Enoxaparin Sodium (Lovenox) 40 mg SC DAILY [facility] Last Admin: 02/18/19 09:29 Dose: 40 mg Documented by: Hydromorphone HCl (Dilaudid Inj) 0.5 - 1 mg IV Q3H PRN PRN PRN Reason: Pain Score 4-10/10 Last Admin: 02/18/19 18:45 Dose: 1 mg Documented by: Meropenem 1 gm/ Sodium (Chloride) 120 mls @ 240 mls/hr IV Q8 [facility] Last Infusion: 02/19/19 05:29 Dose: Infused Documented by: Sodium Chloride () 250 mls @ 15 mls/hr IV .[id number] PRN PRN Reason: Saline Flush Potassium Chloride () 10 meq in 100 mls @ 100 mls/hr IV BOLUS Q1H [facility] Stop: 02/19/19 11:59 Ibuprofen (Motrin) 400 - 600 mg PO Q6H PRN PRN PRN Reason: Pain Score 1-10/10 Last Admin: 02/18/19 00:35 Dose: 600 mg Documented by: Nicotine (Nicoderm Cq (Pbkc)) 21 mg TRANSDERM. DAILY [facility] Last Admin: 02/18/19 09:27 Dose: 21 mg Documented by: Ondansetron HCl (Zofran) 4 mg IV Q8H PRN PRN PRN Reason: NAUSEA/VOMITING Last Admin: 02/16/19 09:04 Dose: 4 mg Documented by: Oxycodone HCl (Oxyir) 5 - 10 mg PO Q4H PRN PRN PRN Reason: Pain Score 6-10/10 Last Admin: 02/19/19 04:58 Dose: 10 mg Documented by: Pantoprazole Sodium (Protonix) 40 mg PO BID INGRID Last Admin: 02/18/19 21:10 Dose: 40 mg Documented by: Potassium Chloride (K-Dur) 40 meq PO X1 [facility] Stop: 02/19/19 08:01 Prochlorperazine Edisylate (Compazine Iv) 5 mg IV Q4H PRN PRN PRN Reason: NAUSEA/VOMITING Last Admin: 02/15/19 16:12 Dose: 5 mg Documented by: Promethazine HCl (Phenergan) 6.25 mg IV Q6H PRN PRN PRN Reason: NAUSEA/VOMITING Last Admin: 02/15/19 11:31 Dose: 6.25 mg Documented by: Sodium Chloride () 10 - 40 ml IV UD PRN PRN Reason: SALINE FLUSH Last Admin: 02/18/19 18:46 Dose: 10 ml Documented by: Medical Necessity - Tobacco Use Smoking Status: Current every day smoker Tobacco Use: Secondhand, Cigarettes Assessment/Plan All Active Problems Cholecystitis (Acute) Pancreatitis (Acute) 48-year-old male with gallstone pancreatitis 1. Patient seems to be doing much better than yesterday. He is not complaining of any abdominal pain. He only has minimal pain to palpation in the epigastric region. He is nondistended and he seems to be tolerating clear liquids very well. I will try him on a regular diet to see how this goes. If he tolerates regular diet he can be discharged home. His white count is still elevated this may be inflammatory response from the pancreatitis. His lipase was normal yesterday. He does not appear to have any increased pain or nausea or vomiting. If a regular diet elicits any of the symptoms I would recommend keeping the patient and reordering a CT scan. Amadou Cash MD Pager: [facility] [address] [place] [address], [address] [place] [address] Office:
[2019-02-19 08:14] VITALS: BP 150/97; PULSE 114; RESP 18; TEMP 36.9; O2SAT 95
[2019-02-19] MEDS: Enoxaparin 40 MG/0.4 ML Syringe SC (08:17)
[2019-02-19] MEDS: Potassium Chloride 10mEq/100mL 10 MEQ/100 ML IV.SOLN. 100 MEQ IV BOLUS ×4 (08:17→12:23)
[2019-02-19] MEDS: Pantoprazole Sodium 40 MG Tablet PO (08:17)
--- NOTE | 2019-02-19 09:22 | PN_ITS ---
Reason for Visit: pancreatitis Subjective: Feels better. Has been having diarrhea. Tolerating PO. Vitals/I&O's: Vital Signs Temp Pulse Resp BP Pulse Ox 36.9 C 114 H 18 150/97 H 95 02/19/19 08:14 02/19/19 08:14 02/19/19 08:14 02/19/19 08:14 02/19/19 08:14 Oxygen Flow Rate (L/min) 3 Oxygen Delivery Method Room Air Weight: 114.9 kg Body Mass Index (BMI) 31.6 Intake and Output for Last 24 Hours 02/17/19 02/18/19 02/19/19 23:59 23:59 23:59 Intake Total 4818.17 / 5068.17 5687.67 / 5687.67 1073.34 / 1073.34 Output Total 950 / 1275 1125 / 1125 Balance 3868.17 / 3793.17 4562.67 / 4562.67 1073.34 / 1073.34 General: Alert, Cooperative, No apparent distress HEENT: Atraumatic, Normocephalic Oral: Moist Mucosa, No Gingival or Mucosal Lesions/ Ulcerations Neck: No Nodes, Trachea Midline Lungs: Clear to auscultation, Normal air movement, No rhonchi, No wheeze, No rales Cardiovascular: Regular rate, Regular Rhythm, Normal S1, Normal S2, No murmurs Abdomen: Bowel Sounds Present, Soft, Non Tender, No Hepato-splenomegaly, Distended Extremities: No edema, No Calf Tenderness Skin: - - bruising around umbilical incision--unchanged. Psych/Mental Status: Normal Affect, Appropriate Microbiology Past 72 Hours 02/16/19 14:04 Aspirate - Abdominal Gram Stain - Final 02/16/19 14:04 Aspirate - Abdominal Wound Culture - Preliminary No growth-Final to follow 02/16/19 14:04 Aspirate - Abdominal Anaerobic Culture - Preliminary No growth in 48 hours. Laboratory Results 02/18/19 07:00: Magnesium 2.2 02/19/19 06:12: WBC 20.5 H, RBC 4.17 L, Hgb 13.3, Hct 37.9 L, MCV 90.9, MCH 31.9, MCHC 35.1, RDW Std Deviation 43.8, RDW Coeff of George 13.1, Plt Count 186, MPV 10.5, Immature Gran % (Auto) 1.400 H, Neut % (Auto) 82.9 H, Lymph % (Auto) 6.8 L, [place] % (Auto) 8.2, Eos % (Auto) 0.3, Baso % (Auto) 0.4, Absolute Neuts (auto) 17.0 H, Absolute Lymphs (auto) 1.40, Nucleated RBC % 0, Diff Path Review June02/19/19 06:12: Sodium 135 L, Potassium 2.9 L, Chloride 103, Carbon Dioxide 24.0, Anion Gap 8, BUN 7, Creatinine 0.58 L, Estim Creat Clear Calc 188.18, Est GFR (MDRD) Af Amer 191, Est GFR (MDRD) Non-Af 158, BUN/Creatinine Ratio 12.0, Glucose 163 H, Calcium 7.6 L, Total Bilirubin 2.00 H, AST 24, ALT 34, Alkaline Phosphatase 106, Total Protein 5.4 L, Albumin 2.0 L, Globulin 3.4, Albumin/Globulin Ratio 0.6 L Current Medications Acetaminophen (Tylenol) 650 mg PO Q6H PRN PRN PRN Reason: Pain or Fever Last Admin: 02/18/19 20:20 Dose: 650 mg Documented by: Enoxaparin Sodium (Lovenox) 40 mg SC DAILY [facility] Last Admin: 02/19/19 08:17 Dose: 40 mg Documented by: Hydromorphone HCl (Dilaudid Inj) 0.5 - 1 mg IV Q3H PRN PRN PRN Reason: Pain Score 4-10/10 Last Admin: 02/18/19 18:45 Dose: 1 mg Documented by: Meropenem 1 gm/ Sodium (Chloride) 120 mls @ 240 mls/hr IV Q8 [facility] Last Infusion: 02/19/19 05:29 Dose: Infused Documented by: Sodium Chloride () 250 mls @ 15 mls/hr IV .[id number] PRN PRN Reason: Saline Flush Potassium Chloride () 10 meq in 100 mls @ 100 mls/hr IV BOLUS Q1H [facility] Stop: 02/19/19 11:59 Last Admin: 02/19/19 08:17 Dose: 100 mls/hr Documented by: Ibuprofen (Motrin) 400 - 600 mg PO Q6H PRN PRN PRN Reason: Pain Score 1-10/10 Last Admin: 02/18/19 00:35 Dose: 600 mg Documented by: Nicotine (Nicoderm Cq (Pbkc)) 21 mg TRANSDERM. DAILY [facility] Last Admin: 02/18/19 09:27 Dose: 21 mg Documented by: Ondansetron HCl (Zofran) 4 mg IV Q8H PRN PRN PRN Reason: NAUSEA/VOMITING Last Admin: 02/16/19 09:04 Dose: 4 mg Documented by: Oxycodone HCl (Oxyir) 5 - 10 mg PO Q4H PRN PRN PRN Reason: Pain Score 6-10/10 Last Admin: 02/19/19 04:58 Dose: 10 mg Documented by: Pantoprazole Sodium (Protonix) 40 mg PO BID [facility] Last Admin: 02/19/19 08:17 Dose: 40 mg Documented by: Prochlorperazine Edisylate (Compazine Iv) 5 mg IV Q4H PRN PRN PRN Reason: NAUSEA/VOMITING Last Admin: 02/15/19 16:12 Dose: 5 mg Documented by: Promethazine HCl (Phenergan) 6.25 mg IV Q6H PRN PRN PRN Reason: NAUSEA/VOMITING Last Admin: 02/15/19 11:31 Dose: 6.25 mg Documented by: Sodium Chloride () 10 - 40 ml IV UD PRN PRN Reason: SALINE FLUSH Last Admin: 02/18/19 18:46 Dose: 10 ml Documented by: STROKE Vital Signs/Narrative: Vital Signs Temp Pulse Resp BP Pulse Ox 02/19/19 08:14 36.9 C 114 H 18 150/97 H 95 Medical Necessity - Tobacco Use Smoking Status: Current every day smoker Tobacco Use: Secondhand, Cigarettes Assessment/Plan All Active Problems Cholecystitis (Acute) Pancreatitis (Acute) 1. acute gallstone pancreatitis * lipase improved * supportive mgmt * continue IVF 2. cholecystitis * acute * S/P lap bibiana on 02/16 * on meropenem since the . upon discharge, can change to amp/CA through the . 3. sepsis * 2/2 above * on meropenem * treat the underlying processes * still with fevers, but overall down * blood cultures negative at 1 day 4. VTE prophylaxis: mod risk. Enoxaparin. 5. hypokalemia * replace * magnesium 2.2 6. Disposition: if tolerates PO, then could be discharged today. Code Visit Inpatient E&M: 18914 Subs Hosp L2
--- NOTE | 2019-02-19 12:25 | DCINST_ITS ---
You will use the following diet at home:: Other - bland, advance as tolerated Your food should be the consistency of: Regular Your liquids should be the consistency of: Regular/Thin Discharge Activity: May not drive while taking narcotic pain medications. May shower in (days): 1 - 24 hr from surgery Call your doctor if your incision/area has: Continuous Slow Oozing, Sudden Increased Bleeding, Increased Pain/ Swelling, Increased Redness, Foul Smelling Discharge, Swelling at the incision site Call your doctor if you observe: Fever of 101 or Higher Remove Dressing in (days):: 1 - Okay to remove OpSite tomorrow, Steri-Strips daily for 7 to 10 days did not follow-up in 10 days okay to remove Allergies/Adverse Reactions: Allergies No Known Allergies Allergy (Verified 02/14/19 13:45) Medications to take at Discharge Oxycodone HCl/Acetaminophen [Percocet 5/325] 1 - 2 tab PO Q6H PRN PRN 4 Days #20 tab 02/17/19 Pantoprazole Sodium [Protonix] 40 mg PO DAILY #30 tab 02/17/19 Amoxicillin/Potassium Clav [Augmentin 875-125 Tablet] 1 ea PO BID #5 tab 02/19/19 The following prescriptions were given: Amoxicillin/Potassium Clav [Augmentin 875-125 Tablet] 1 ea PO BID #5 tab Transmission Status: Pending to [facility] Oxycodone HCl/Acetaminophen [Percocet 5/325] 1 - 2 tab PO Q6H PRN PRN 4 Days #20 tab PRN Reason: Pain Transmission Status: Received by [facility] Pantoprazole Sodium [Protonix] 40 mg PO DAILY #30 tab Transmission Status: Received by [facility] Primary Care Physician: Care Physician,No Primary [Primary Care Provider] - Test Results: Test results from this visit will be discussed in further detail at your follow- up appointment, if applicable. Please Follow Up With: Rachel Hoover MD - After 5 PM and on the weekends call [phone] with any concerns When: Call the office for follow-up appointment in 2 weeks Proposed Discharge Date: 02/19/19
--- NOTE | 2019-02-19 12:26 | PCM.DC.SUM ---
Discharge Date and Diagnosis Date of Admission: 02/14/19 Date of Discharge: 02/19/19 - Primary Discharge Diagnosis 1. acute gallstone pancreatitis lipase improved supportive mgmt continue IVF 2. cholecystitis acute S/P lap bibiana on 02/16 on meropenem since the . upon discharge, can change to amp/CA through the . 3. sepsis 2/2 above on meropenem treat the underlying processes still with fevers, but overall down blood cultures negative at 1 day 4. hypokalemia Hospital Course and Treatment Imaging Results: Clinical Impression(s) from Imaging Studies Chest X-Ray 02/14/19 14:03 IMPRESSION: Low volume inspiration with diffuse interstitial pattern. No acute or active cardiopulmonary disease. Electronically Signed: Blaise Chua MD at 14:25 EST , Service support , Abdomen/Pelvis CT 02/14/19 16:17 IMPRESSION: Acute pancreatitis. Cholelithiasis. Electronically Signed: Hannah Villarreal MD at 16:48 EST Tel , Service support , Gallbladder Ultrasound 02/14/19 17:43 IMPRESSION: Cholelithiasis associated with mild gallbladder wall thickening and a reported positive sonographic Sheehan''s sign and no pericholecystic fluid; may be secondary to chronic cholecystitis. Nonvisualization of the pancreas secondary to overlying bowel gas. Electronically Signed: Hannah Villarreal MD at 18:36 EST Tel , Service support , Cholangiogram 02/16/19 13:00 IMPRESSION: Fluoroscopic guided intraoperative cholangiogram Electronically Signed: Porfirio Ramirez MD at 15:42 EST , Service support , Psychiatric, general surgery Operations: cholecystecomy Procedures: None Summary of Care Provided: The patient is a 48 year old M presents with abdominal pain and was found to have acute pancreatitis. Patient had ultrasound that showed cholelithiasis. [place] to have gallstone pancreatitis. Patient underwent a laparoscopic cholecystectomy on the . Patient tolerated that well and overall his pancreatitis has resolved but still does have some abdominal pain. Patient was septic upon presentation secondary to the pancreatitis and cholecystitis. Patient has been on meropenem and will be transitioned over to Augmentin to complete through . Overall, the patient is much better and will be discharged home in stable condition. [] - Physical Exam Vitals/I&O's: Vital Signs Temp Pulse Resp BP Pulse Ox 36.9 C 114 H 18 150/97 H 95 02/19/19 08:14 02/19/19 08:14 02/19/19 08:14 02/19/19 08:14 02/19/19 08:14 Oxygen Flow Rate (L/min) 3 Oxygen Delivery Method Room Air Weight: 114.9 kg Body Mass Index (BMI) 31.6 Intake and Output for Last 24 Hours 02/17/19 02/18/19 02/19/19 23:59 23:59 23:59 Intake Total 4818.17 / 5068.17 5687.67 / 5687.67 1830.51 / 1830.51 Output Total 950 / 1275 1125 / 1125 Balance 3868.17 / 3793.17 4562.67 / 4562.67 1830.51 / 1830.51 Microbiology Past 72 Hours 02/16/19 14:04 Aspirate - Abdominal Gram Stain - Final 02/16/19 14:04 Aspirate - Abdominal Wound Culture - Preliminary No growth-Final to follow 02/16/19 14:04 Aspirate - Abdominal Anaerobic Culture - Preliminary No growth in 48 hours. Laboratory Results 02/19/19 06:12: WBC 20.5 H, RBC 4.17 L, Hgb 13.3, Hct 37.9 L, MCV 90.9, MCH 31.9, MCHC 35.1, RDW Std Deviation 43.8, RDW Coeff of George 13.1, Plt Count 186, MPV 10.5, Immature Gran % (Auto) 1.400 H, Neut % (Auto) 82.9 H, Lymph % (Auto) 6.8 L, [place] % (Auto) 8.2, Eos % (Auto) 0.3, Baso % (Auto) 0.4, Absolute Neuts (auto) 17.0 H, Absolute Lymphs (auto) 1.40, Nucleated RBC % 0, Diff Path Review June02/19/19 06:12: Sodium 135 L, Potassium 2.9 L, Chloride 103, Carbon Dioxide 24.0, Anion Gap 8, BUN 7, Creatinine 0.58 L, Estim Creat Clear Calc 188.18, Est GFR (MDRD) Af Amer 191, Est GFR (MDRD) Non-Af 158, BUN/Creatinine Ratio 12.0, Glucose 163 H, Calcium 7.6 L, Total Bilirubin 2.00 H, AST 24, ALT 34, Alkaline Phosphatase 106, Total Protein 5.4 L, Albumin 2.0 L, Globulin 3.4, Albumin/Globulin Ratio 0.6 L Current Medications Acetaminophen (Tylenol) 650 mg PO Q6H PRN PRN PRN Reason: Pain or Fever Last Admin: 02/18/19 20:20 Dose: 650 mg Documented by: Enoxaparin Sodium (Lovenox) 40 mg SC DAILY [facility] Last Admin: 02/19/19 08:17 Dose: 40 mg Documented by: Hydromorphone HCl (Dilaudid Inj) 0.5 - 1 mg IV Q3H PRN PRN PRN Reason: Pain Score 4-10/10 Last Admin: 02/18/19 18:45 Dose: 1 mg Documented by: Meropenem 1 gm/ Sodium (Chloride) 120 mls @ 240 mls/hr IV Q8 [facility] Last Infusion: 02/19/19 05:29 Dose: Infused Documented by: Sodium Chloride () 250 mls @ 15 mls/hr IV .[id number] PRN PRN Reason: Saline Flush Ibuprofen (Motrin) 400 - 600 mg PO Q6H PRN PRN PRN Reason: Pain Score 1-10/10 Last Admin: 02/18/19 00:35 Dose: 600 mg Documented by: Nicotine (Nicoderm Cq (Pbkc)) 21 mg TRANSDERM. DAILY [facility] Last Admin: 02/19/19 10:52 Dose: Not Given Documented by: Ondansetron HCl (Zofran) 4 mg IV Q8H PRN PRN PRN Reason: NAUSEA/VOMITING Last Admin: 02/16/19 09:04 Dose: 4 mg Documented by: Oxycodone HCl (Oxyir) 5 - 10 mg PO Q4H PRN PRN PRN Reason: Pain Score 6-10/10 Last Admin: 02/19/19 04:58 Dose: 10 mg Documented by: Pantoprazole Sodium (Protonix) 40 mg PO BID INGRID Last Admin: 02/19/19 08:17 Dose: 40 mg Documented by: Prochlorperazine Edisylate (Compazine Iv) 5 mg IV Q4H PRN PRN PRN Reason: NAUSEA/VOMITING Last Admin: 02/15/19 16:12 Dose: 5 mg Documented by: Promethazine HCl (Phenergan) 6.25 mg IV Q6H PRN PRN PRN Reason: NAUSEA/VOMITING Last Admin: 02/15/19 11:31 Dose: 6.25 mg Documented by: Sodium Chloride () 10 - 40 ml IV UD PRN PRN Reason: SALINE FLUSH Last Admin: 02/18/19 18:46 Dose: 10 ml Documented by: Discharge Diet: Light diet - advance as tolerated Discharge Activity: May not drive while taking narcotic pain medications. May shower in (days): 1 - 24 hr from surgery Call your doctor if your incision/area has: Continuous Slow Oozing, Sudden Increased Bleeding, Increased Pain/ Swelling, Increased Redness, Foul Smelling Discharge, Swelling at the incision site Call your doctor if you observe: Fever of 101 or Higher Remove Dressing in (days):: 1 - Okay to remove OpSite tomorrow, Steri-Strips daily for 7 to 10 days did not follow-up in 10 days okay to remove Home Medications: Medications to take at Discharge Oxycodone HCl/Acetaminophen [Percocet 5/325] 1 - 2 tab PO Q6H PRN PRN 4 Days #20 tab 02/17/19 Pantoprazole Sodium [Protonix] 40 mg PO DAILY #30 tab 02/17/19 Amoxicillin/Potassium Clav [Augmentin 875-125 Tablet] 1 ea PO BID #5 tab 02/19/19 Following Prescrptions Were Given to Patient: Amoxicillin/Potassium Clav [Augmentin 875-125 Tablet] 1 ea PO BID #5 tab Transmission Status: Pending to [facility] #[facility] Oxycodone HCl/Acetaminophen [Percocet 5/325] 1 - 2 tab PO Q6H PRN PRN 4 Days #20 tab PRN Reason: Pain Transmission Status: Received by [facility] Pantoprazole Sodium [Protonix] 40 mg PO DAILY #30 tab Transmission Status: Received by [facility] #[facility] Primary Care Physician: Care Physician,No Primary [Primary Care Provider] - Please Follow Up With: Rachel Hoover MD - After 5 PM and on the weekends call [phone] with any concerns When: Call the office for follow-up appointment in 2 weeks Additional Instructions: Okay to take ibuprofen 400-600 mg PO q6hr PRN along with the Percocet. Avoid Tylenol since there is already Tylenol in the Percocet. Take all pain meds with food. Percocet can cause constipation recommend taking daily stool softener (i.e. Colace/docusate) while taking the pain meds. Recommend starting some MiraLAX in 1 to 2 days if no bowel movement. If still no bowel movement the following day recommend taking magnesium citrate half the bottle and waiting 4-6 hours if still no results take the other half the bottle. Note given to patient for work excuse from 02/14/2019 till 03/05/2019 Disposition: Home Minutes spent on discharge:: 32 Patient Condition:: Good Medical Necessity - Tobacco Use Smoking Status: Current every day smoker Tobacco Use: Secondhand, Cigarettes Meaningful Use Info Meaningful Use Diagnoses (Choose all that apply): None applicable Code Visit Inpatient E&M: 04670 Disch Hosp
[2019-02-20 12:21] LABS: Pathologist Review Reviewed
== END 2019-02-19 13:36 | disposition home or self-care (01) | DRG 263 ==
LOC: ED 15:54 → MS3 16:46
PROVIDERS: Surgery; Admitting Provider Family Medicine; Emergency Provider Emergency Medicine; Referring Provider Family Medicine
PROC: 0FT44ZZ Resection of Gallbladder, Percutaneous Endoscopic Approach (ICD-10-PCS; CPT 47610; principal; 2019-02-16 12:40)
DX: K85.10 Biliary acute pancreatitis without necrosis or infection (principal); K80.00 Calculus of gallbladder with acute cholecystitis without obstruction; A41.9 Sepsis, unspecified organism; K82.8 Other specified diseases of gallbladder; F17.210 Nicotine dependence, cigarettes, uncomplicated; E87.6 Hypokalemia
CPT/HCPCS: 36415; 71045; 74177; 74300; 76000; 76705; 80048; 80053; 80061; 80076; 83690; 83735; 84484; 85025; 87015; 87040; 87070; 87075; 87102; 87116; 87205; 87206; 88304; 93005; 99251; 99285; 99406; J2185; J7030; Q9967; A4216; G0463; J2405; J3490

== ENCOUNTER 2019-10-25 19:33 | Inpatient (IN) | payer MEDICAID, SELFPAY ==
[2019-02-16 11:17] VITALS: BMI 31.6
[2019-10-25 19:35] VITALS: BP 117/74; PULSE 105; RESP 18; TEMP 36.1; O2SAT 98; BMI 24.4
[2019-10-25 19:56] LABS: Absolute Lymphocyte Count 3.23 X10^3/uL (0.83-4.51); Absolute Neutrophil Count 6.5 X10^3/uL (2.0-7.7); Basophil# 0.14 X10^3/uL; Basophil% 1.3 % (0-1); Eosinophil# 0.11 X10^3/uL; Hematocrit 52.5 % (40-54); Lymphocyte # 3.23 X10^3/ul (4.0); Mean Corp Hgb Conc 34.5 g/dL (32-36); Mean Corpuscular Hgb 30.8 pg (27.0-32.0); Mean Corpuscular Volume 89.4 fL (80-94); Mean Platelet Vol. 11.5 fl (6.2-12.0); Monocyte% 6.5 % (0-10); NRBC Flagged by Analyzer 0 % (0-5); Neutrophil # 6.45 X10^3/uL (2.7-7.7); Neutrophil % 60.1 % (47-70); Platelet Count 266 K/mm3 (150-450); RBC Distribution Width CV 12.1 % (11.6-14.6); RBC Distribution Width SD 39.4 fl (35.1-43.9); Red Blood Count 5.87 M/mm3 (4.6-6.2); White Blood Count 10.8 K/mm3 (4.4-11.0)
[2019-10-25 20:01] LABS: Bacteria 0 SEEN /hpf (None Seen); Color, Urine Yellow (Yellow); Glucose, Dipstick 1000 mg/dl (Normal); Leukocyte Esterase-Dipstick Negative /ul (Negative); Mucous, Urine 0 SEEN /hpf (<or=2+); Nitrite-Dipstick Negative (Negative); Occult Blood-Urine Negative /ul (Negative); Protein-Dipstick Negative (Negative); Red Blood Cells-Urine 0 SEEN /hpf (0-5); Squamous Epithelial Cells - UA 0 SEEN /hpf (0-5); Urine Bilirubin Dipstick Negative (Negative); Urine Clarity Clear (Clear); Urine Urobilinogen Normal (Normal); White Blood Cells 0 SEEN /hpf (0-5)
[2019-10-25 20:07] LABS: Hemoglobin 18.1 g/dL (13.0-16.5)
[2019-10-25 20:10] LABS: Ketone-Dipstick 150 mg/dl (Negative)
[2019-10-25 20:16] LABS: Anion Gap 18 (5-15); BUN 20 mg/dL (7-18); BUN/Creat Ratio 14.3 RATIO (10-20); Calcium,Total 10.7 mg/dL (8.5-10.1); Chloride 95 mmol/L (98-107); EST Glomerular Filtration Rate 58 mL/min (>60); Est Glom Filt Rate - Afr Amer 70 mL/min (>60); Estimated Creatinine Clearance 79.22 ml/min; Glucose 669 mg/dL (74-106); Potassium 5.2 mmol/L (3.5-5.1); Sodium Level 129 mmol/L (136-145)
[2019-10-25] MEDS: 0.9% Normal Saline 1,000 ML 999 ML IV ×2 (20:38→21:14)
--- NOTE | 2019-10-25 21:06 | ED.VISSUMM ---
- ER Visit Summary Date of Service: 10/25/19 Chief Complaint: Lysed fatigue and weight loss over the last 1 to 2 months. History of Present Illness: The patient is a 49 M history of prior pancreatitis. Status post cholecystectomy. Patient states for last 1 to 2 months has been more fatigued and has had about a 40 pound weight loss. He has never been diagnosed but there is multiple family members with a history of diabetes. He denies fever. He denies vomiting or diarrhea. He denies melena. He denies abdominal or chest pain. Physical Examination: Middle-aged male vital signs stable afebrile. HEENT exam unremarkable. Very very poor decaying dentition. Neck nontender no lymphadenopathy. Lungs clear to auscultation bilaterally. Heart regular rhythm rate about 100-1 05 no murmur. Abdomen soft nontender normal bowel sounds no peritoneal signs. Strength is moves all 4. Calves nontender no edema or cords. Back nontender. Neurologically is awake alert with no focal motor deficits. Test Results: CBC shows a white count of 10. Hemoglobin of 18. No bands. Chemistries are consistent with acute DKA. Sodium 129. Potassium 5.2. CO2 is 16. Gap 18. Glucose 669. BUN 20 creatinine 1.4. UA glucose and ketones positive. No signs of infection. Serum ketones positive. Emergency Department Course and Treatment: Patient history and exam are consistent with new onset diabetes and acute DKA. Given 2 L normal saline IV. Started on insulin drip. Treatment Plan: I have already spoken with the hospitalist the patient will be admitted to the ICU on insulin drip. Disposition: admission Impression: Acute new onset diabetes Acute DKA Critical care time 33 minutes History of prior pancreatitis This note was generated with [employer] dictation software. It may contain incorrect words, spelling, and punctuation that were not noted in review of the chart prior to signing ED Disposition - Plan for ED Patient: Referrals: Lit Ryan MD [Primary Care Provider] -
--- NOTE | 2019-10-25 21:10 | HP.PCM_ITS ---
Problem List (1) DKA (diabetic ketoacidoses) Status: Acute History of Present Illness Date of Admission: 10/25/19 Chief Complaint: Nausea and vomiting The patient is a 49 year old M with a significant history of pancreatitis; cholecystitis and cholecystectomy who presents to the emergency department with nausea and vomiting that started on the same day of presentation. He denies abdominal pain. Also patient complains of poor vision for the past one and a half month. Further he has anorexia. Also he has a poor dentition for which he is trying to see a dentist. The emergency department he was found to have low sodium; high creatinine; severely elevated glucose and acetone in urine and blood. Past Medical History Medical History: Medical History (Last Reviewed 10/26/19 @ 02:[address] Tony Lopez MD) GERD (gastroesophageal reflux disease) K21.9 history of lymphatic infection Allergies acetaminophen [From Vicodin] Adverse Reaction (Mild, Verified 10/25/19 19:38) tremors hydrocodone [From Vicodin] Adverse Reaction (Mild, Verified 10/25/19 19:38) tremors Home Medications: Ambulatory Orders Medication Instructions Recorded NK 10/25/19 Surgical History: Surgical History (Last Updated 03/03/19 @ 09:11 by Emy Paulino) History of cholecystectomy Onset Date: ~02/2019 Z90.49 Psychiatric History: No pertinent psych hx Smoking Status: Current every day smoker Tobacco Use: Cigarettes - *Family History Maternal Family History: Family History (Last Reviewed 10/26/19 @ 02:[address] Tony Lopez MD) Mother Cardiac murmur Diabetes Grandmother COPD (chronic obstructive pulmonary disease) History Items: Heart Disease Paternal Family History: Family History (Last Reviewed 10/26/19 @ 02:[address] Tony Lopez MD) Mother Cardiac murmur Diabetes Grandmother COPD (chronic obstructive pulmonary disease) History Items: Unknown Review of Systems Constitutional: Reports: Anorexia, Weakness, Fatigue. Denies: Chills, Fever, Weight Change Eyes: Reports: Blurred vision HEENT: Denies: Head Aches, Sinus Congestion, Sinus Drainage Cardiovascular: Denies: Chest Pain, Palpitations Respiratory: Denies: Cough, Shortness of breath at rest, Sputum production Gastrointestinal: Reports: Nausea, Vomiting. Denies: Abdominal Pain Genitourinary: Denies: Dysuria Musculoskeletal: Denies: Joint Pain, Joint Tenderness Skin: Denies: Rash, Wounds Neurological: Denies: Numbness, Tingling, Focal weakness Psychiatric: Denies: Anxiety, Depression, Homicidal Ideations, Suicidal Ideations Hematologic/ Lymphatic: Denies: Easy Bruising, Easy Bleeding VTE Information - Inpt Only VTE Present on Admission: No VTE Mechan Device Prophylaxis: None VTE Pharm Prophylaxis ordered?: Yes Patient Problems: Active and Suspected Problems (Last Reviewed 10/26/19 @ 02:[address] Tony Lopez MD) DKA (diabetic ketoacidoses) (Acute) - Physical Exam Vitals/I&O's: Vital Signs Temp Pulse Resp BP Pulse Ox 97 F L 105 H 18 117/74 98 10/25/19 19:35 10/25/19 19:35 10/25/19 19:35 10/25/19 19:35 10/25/19 19:35 Oxygen Delivery Method Room Air Weight: 91.172 kg Body Mass Index (BMI) 24.4 General: Alert, Oriented x3, Cooperative HEENT: Atraumatic, PERRLA, EOMI, Normocephalic Oral: - - Poor dentition Neck: Supple, No JVD, Negative Carotid Bruits Lungs: Clear to auscultation, Normal air movement Cardiovascular: Regular rate, Regular Rhythm, Normal S1, Normal S2, No murmurs Abdomen: Bowel Sounds Present, Soft, Non Tender Extremities: No edema, Capillary Refill Less than 3 Seconds Skin: No rashes, No breakdown Musculoskeletal: No Tenderness to Palpation of Joints or Extremities Neurological: Cranial nerves II-XII grossly intact Psych/Mental Status: Normal Affect, Appropriate Laboratory Results 10/25/19 19:44: WBC 10.8, RBC 5.87, Hgb 18.1 H*, Hct 52.5, MCV 89.4, MCH 30.8, MCHC 34.5, RDW Std Deviation 39.4, RDW Coeff of George 12.1, Plt Count 266, MPV 11.5, Immature Gran % (Auto) 1.100 H, Neut % (Auto) 60.1, Lymph % (Auto) 30.0, [place] % (Auto) 6.5, Eos % (Auto) 1.0, Baso % (Auto) 1.3 H, Absolute Neuts (auto) 6.5, Absolute Lymphs (auto) 3.23, Nucleated RBC % 0 10/25/19 19:44: Sodium 129 L, Potassium 5.2 H, Chloride 95 L, Carbon Dioxide 16.0 L, Anion Gap 18 H, BUN 20 H, Creatinine 1.40 H, Estim Creat Clear Calc 79.22, Est GFR (MDRD) Af Amer 70, Est GFR (MDRD) Non-Af 58 L, BUN/Creatinine Ratio 14.3, Glucose 669 H*, Calcium 10.7 H 10/25/19 19:50: Urine Color Yellow, Urine Clarity Clear, Urine pH 5.0, Ur Specific [place] 1.020, Urine Protein Negative, Urine Glucose (UA) 1000 H, Urine Ketones 150 H, Urine Occult Blood Negative, Urine Nitrite Negative, Urine Bili denny Negative, Urine Urobilinogen Normal, Ur Leukocyte Esterase Negative, Urine RBC 0 SEEN, Urine WBC 0 SEEN, Ur Squamous Epith Cells 0 SEEN, Urine Bacteria 0 SEEN, Urine Mucus 0 SEEN 10/25/19 20:30: Acetone Level Pending Current Medications Dextrose (D50w Syringe) 0 gm IV X1 PRN; Protocol PRN Reason: Hypoglycemia Protocol Sodium Chloride () 1,000 mls @ 999 mls/hr IV .Q1H1M ONE Stop: 10/25/19 21:37 Last Admin: 10/25/19 20:38 Dose: 999 mls/hr Documented by: Sodium Chloride () 1,000 mls @ 999 mls/hr IV .Q1H1M INGRID Stop: 10/25/19 22:40 Insulin Human Lispro 100 unit/ (Sodium Chloride) 100 mls @ 9.117 mls/hr IV .[id number] INGRID; Protocol Assessment/Plan All Active Problems (Last Reviewed 10/26/19 @ 02:[address] Tony Lopez MD) DKA (diabetic ketoacidoses) (Acute) The patient is a 49 year old M with a significant history of pancreatitis; cholecystitis and cholecystectomy who presents to the emergency department with nausea and vomiting and have low sodium; high creatinine; severely elevated glucose and acetone in urine and blood. DKA Serum glucose of 669 acetone in urine and blood Anion gap of 18 Sodium 129, Corrected sodium 138 Insulin drip started from emergency department; continued Completed IV bolus of normal saline Because of potassium of 5.2 patient was started on half-normal saline at 250 ML per hour without potassium. His potassium level subsequently decreased to 4.0; and patient was started on half-normal saline with 20 of potassium again at 150 mL's per hour. BMP every 4 hours to calculate anion gap. N.p.o. for now. Okay to give ice chips per patient request. Admitted to ICU A1c is 11.8. Zofran PRN DANIEL Creatinine presentation was 1.40 Review of old records shows creatinine baseline of around 1. BUN was 20. BUN over creatinine is 14.3. Likely prerenal entry into intrinsic renal IV hydration. Trend BMP Avoid nephrotoxins. Tobacco abuse Counseled. Declined nicotine patch Poor dentition. Patient to follow-up outpatient with a dentist appointment on November 13, 2019. DVT Prophylaxis Subcutaneous lovenox ordered. Inpatient E&M: 10453 Init Hosp L3
[2019-10-25 21:30] LABS: Bedside Glucose > 500 mg/dL (70-110)
[2019-10-25 21:36] VITALS: BP 113/76; PULSE 85; PULSE 91; RESP 15; RESP 16; TEMP 36.9; O2SAT 99
[2019-10-25 22:26] LABS: Bedside Glucose 388 mg/dL (70-110)
[2019-10-25 22:33] VITALS: BMI 24.5
[2019-10-25 23:01] VITALS: BP 101/89; PULSE 97; RESP 19; TEMP 36.3; O2SAT 100
[2019-10-25 23:06] VITALS: PULSE 86
[2019-10-25 23:15] VITALS: BP 115/93; PULSE 82; RESP 15; O2SAT 99
[2019-10-25 23:20] VITALS: BMI 25.6
[2019-10-25 23:30] VITALS: BP 106/70; PULSE 83; RESP 18; O2SAT 97
[2019-10-25] MEDS: 0.45% Normal Saline 1,000 ML 250 ML IV (23:30)
[2019-10-25 23:41] LABS: Bedside Glucose 382 mg/dL (70-110)
[2019-10-25 23:47] LABS: Hemoglobin A1c 11.8 % (3.8-5.6)
[2019-10-25 23:50] LABS: Anion Gap 12 (5-15); BUN 18 mg/dL (7-18); BUN/Creat Ratio 15.5 RATIO (10-20); Calcium,Total 9.8 mg/dL (8.5-10.1); Chloride 105 mmol/L (98-107); Creatinine, Serum 1.16 mg/dL (0.70-1.30); EST Glomerular Filtration Rate 71 mL/min (>60); Est Glom Filt Rate - Afr Amer 86 mL/min (>60); Estimated Creatinine Clearance 93.08 ml/min; Glucose 359 mg/dL (74-106); Sodium Level 136 mmol/L (136-145)
[2019-10-25 23:57] LABS: Magnesium 2.1 mg/dL (1.6-2.6)
[2019-10-26] VITALS (18 sets, daily range): BP systolic 92–108; BP diastolic 56–89; PULSE 69–107; RESP 15–118; TEMP 36.7–37.1; O2SAT 96–98; BMI 26.1
--- NOTE | 2019-10-26 00:20 | NURSING ---
contacted lab regarding serum osmolality being cancelled, per chemical lab technician it needs to be sent out and will result in a couple days.
[2019-10-26 00:31] LABS: Bedside Glucose 288 mg/dL (70-110)
[2019-10-26 01:31] LABS: Bedside Glucose 254 mg/dL (70-110)
[2019-10-26 02:30] LABS: Bedside Glucose 262 mg/dL (70-110)
[2019-10-26 02:55] LABS: Anion Gap 10 (5-15); BUN 15 mg/dL (7-18); BUN/Creat Ratio 18.7 RATIO (10-20); Calcium,Total 9.4 mg/dL (8.5-10.1); Chloride 108 mmol/L (98-107); EST Glomerular Filtration Rate 109 mL/min (>60); Est Glom Filt Rate - Afr Amer 132 mL/min (>60); Estimated Creatinine Clearance 134.97 ml/min; Glucose 236 mg/dL (74-106); Potassium 3.7 mmol/L (3.5-5.1); Sodium Level 136 mmol/L (136-145)
[2019-10-26 03:26] LABS: Bedside Glucose 247 mg/dL (70-110)
[2019-10-26 04:26] LABS: Bedside Glucose 185 mg/dL (70-110)
--- NOTE | 2019-10-26 05:29 | NURSING ---
passed dysphagia screen, unable to take K-dur pills whole or in half with applesauce. Took dissolved in water, tolerated well.
[2019-10-26 05:31] LABS: Bedside Glucose 217 mg/dL (70-110)
[2019-10-26 06:25] LABS: Bedside Glucose 214 mg/dL (70-110)
[2019-10-26 06:26] LABS: Absolute Lymphocyte Count 3.82 X10^3/uL (0.83-4.51); Absolute Neutrophil Count 4.1 X10^3/uL (2.0-7.7); Basophil# 0.12 X10^3/uL; Basophil% 1.3 % (0-1); Eosinophil# 0.21 X10^3/uL; Eosinophils% 2.3 % (0-5); Hematocrit 43.5 % (40-54); Hemoglobin 15.2 g/dL (13.0-16.5); Lymphocyte # 3.82 X10^3/ul (4.0); Lymphocyte % 42.5 % (19-41); Mean Corp Hgb Conc 34.9 g/dL (32-36); Mean Corpuscular Hgb 30.9 pg (27.0-32.0); Mean Corpuscular Volume 88.4 fL (80-94); Mean Platelet Vol. 10.8 fl (6.2-12.0); Monocyte# 0.64 X10^3/uL; Monocyte% 7.1 % (0-10); NRBC Flagged by Analyzer 0 % (0-5); Neutrophil # 4.13 X10^3/uL (2.7-7.7); Platelet Count 209 K/mm3 (150-450); RBC Distribution Width CV 12.1 % (11.6-14.6); RBC Distribution Width SD 38.9 fl (35.1-43.9); Red Blood Count 4.92 M/mm3 (4.6-6.2)
[2019-10-26 06:40] LABS: Anion Gap 5 (5-15); BUN 13 mg/dL (7-18); BUN/Creat Ratio 18.2 RATIO (10-20); Calcium,Total 8.9 mg/dL (8.5-10.1); Chloride 110 mmol/L (98-107); Creatinine, Serum 0.71 mg/dL (0.70-1.30); EST Glomerular Filtration Rate 125 mL/min (>60); Est Glom Filt Rate - Afr Amer 151 mL/min (>60); Estimated Creatinine Clearance 152.07 ml/min; Glucose 211 mg/dL (74-106); Potassium 3.6 mmol/L (3.5-5.1); Sodium Level 135 mmol/L (136-145)
[2019-10-26 08:16] LABS: Bedside Glucose 209 mg/dL (70-110)
[2019-10-26] MEDS: Insulin Lispro 100 UNIT/ML INSULN.PEN SC ×4 (08:37→21:07)
[2019-10-26] MEDS: Insulin Lispro 100 UNIT/ML INSULN.PEN 6 UNIT SC ×3 (08:39→17:31)
[2019-10-26] MEDS: Enoxaparin 40 MG/0.4 ML Syringe SC (10:24)
[2019-10-26 11:30] LABS: Bedside Glucose 239 mg/dL (70-110)
--- NOTE | 2019-10-26 12:33 | PCM.PN.HOSP ---
Patient Problems: Active and Suspected Problems (Last Reviewed 10/26/19 @ 02:[address] Tony Lopez MD) DKA (diabetic ketoacidoses) (Acute) Reason for Visit: DKA Subjective: Pt not on home meds, no prior hx DM. Pt has noticed increased fatigue, thirst, polyuria over the past weeks. No fever/chills. No abd pain. No sob/cough. D/w patient and patients plan of care. expresses concern about the patient being able to be compliant with diet. Vitals/I&O's: Vital Signs Temp Pulse Resp BP Pulse Ox 98.8 F 75 118 H 98/64 98 10/26/19 08:00 10/26/19 11:40 10/26/19 10:00 10/26/19 10:00 10/26/19 10:00 Oxygen Delivery Method Room Air Weight: 208 lb 12.444 oz Body Mass Index (BMI) 25.6 Finger Stick Blood Glucose 209 Intake and Output for Last 24 Hours 10/24/19 10/25/19 10/26/19 23:59 23:59 23:59 Intake Total / 1840.24 / 184.24 Output Total 400 / 400 0 / 0 Balance 1613.37 / 1613.37 184.24 / 1840.24 General: Alert, Oriented x3, Cooperative HEENT: Atraumatic, PERRLA, EOMI, Normocephalic Neck: Supple, No JVD, Negative Carotid Bruits Lungs: Clear to auscultation, Normal air movement Cardiovascular: Regular rate, No murmurs Abdomen: Bowel Sounds Present, Soft, Non Tender Extremities: No edema, Capillary Refill Less than 3 Seconds Skin: No rashes, No breakdown Musculoskeletal: No Tenderness to Palpation of Joints or Extremities Neurological: Cranial nerves II-XII grossly intact Psych/Mental Status: Normal Affect, Appropriate, Alert and oriented to time, place, person, mood and affect Laboratory Results 10/25/19 19:44: WBC 10.8, RBC 5.87, Hgb 18.1 H*, Hct 52.5, MCV 89.4, MCH 30.8, MCHC 34.5, RDW Std Deviation 39.4, RDW Coeff of George 12.1, Plt Count 266, MPV 11.5, Immature Gran % (Auto) 1.100 H, Neut % (Auto) 60.1, Lymph % (Auto) 30.0, [place] % (Auto) 6.5, Eos % (Auto) 1.0, Baso % (Auto) 1.3 H, Absolute Neuts (auto) 6.5, Absolute Lymphs (auto) 3.23, Nucleated RBC % 0 10/25/19 19:44: Sodium 129 L, Potassium 5.2 H, Chloride 95 L, Carbon Dioxide 16.0 L, Anion Gap 18 H, BUN 20 H, Creatinine 1.40 H, Estim Creat Clear Calc 79.22, Est GFR (MDRD) Af Amer 70, Est GFR (MDRD) Non-Af 58 L, BUN/Creatinine Ratio 14.3, Glucose 669 H*, Calcium 10.7 H 10/25/19 19:50: Urine Color Yellow, Urine Clarity Clear, Urine pH 5.0, Ur Specific [place] 1.020, Urine Protein Negative, Urine Glucose (UA) 1000 H, Urine Ketones 150 H, Urine Occult Blood Negative, Urine Nitrite Negative, Urine Bilirubin Negative, Urine Urobilinogen Normal, Ur Leukocyte Esterase Negative, Urine RBC 0 SEEN, Urine WBC 0 SEEN, Ur Squamous Epith Cells 0 SEEN, Urine Bacteria 0 SEEN, Urine Mucus 0 SEEN 10/25/19 20:30: Acetone Level SMALL H 10/25/19 21:21: POC Glucose > 500 H* 10/25/19 22:14: POC Glucose 388 H 10/25/19 23:00: Hemoglobin A1c 11.8 H 10/25/19 23:00: Sodium 136, Potassium 4.0, Chloride 105, Carbon Dioxide 19.0 L, Anion Gap 12, BUN 18, Creatinine 1.16, Estim Creat Clear Calc 93.08, Est GFR (MDRD) Af Amer 86, Est GFR (MDRD) Non-Af 71, BUN/Creatinine Ratio 15.5, Glucose 359 H, Calcium 9.8 10/25/19 23:00: Magnesium 2.1 10/25/19 23:00: Serum Osmolality Cancelled 10/25/19 23:00: Miscellaneous Test Pending 10/25/19 23:19: POC Glucose 382 H 10/26/19 00:22: POC Glucose 288 H 10/26/19 01:24: POC Glucose 254 H 10/26/19 02:25: POC Glucose 262 H 10/26/19 02:35: Sodium 136, Potassium 3.7, Chloride 108 H, Carbon Dioxide 18.0 L, Anion Gap 10, BUN 15, Creatinine 0.80, Estim Creat Clear Calc 134.97, Est GFR (MDRD) Af Amer 132, Est GFR (MDRD) Non-Af 109, BUN/Creatinine Ratio 18.7, Glucose 236 H, Calcium 9.4 10/26/19 03:23: POC Glucose 247 H 10/26/19 04:23: POC Glucose 185 H 10/26/19 05:16: POC Glucose 217 H 10/26/19 06:16: POC Glucose 214 H 10/26/19 06:20: WBC 9.0, RBC 4.92, Hgb 15.2, Hct 43.5, MCV 88.4, MCH 30.9, MCHC 34.9, RDW Std Deviation 38.9, RDW Coeff of George 12.1, Plt Count 209, MPV 10.8, Immature Gran % (Auto) 0.800, Neut % (Auto) 46.0 L, Lymph % (Auto) 42.5 H, [place] % (Auto) 7.1, Eos % (Auto) 2.3, Baso % (Auto) 1.3 H, Absolute Neuts (auto) 4.1, Absolute Lymphs (auto) 3.82, Nucleated RBC % 0 10/26/19 06:20: Sodium 135 L, Potassium 3.6, Chloride 110 H, Carbon Dioxide 20.0 L, Anion Gap 5, BUN 13, Creatinine 0.71, Estim Creat Clear Calc 152.07, Est GFR (MDRD) Af Amer 151, Est GFR (MDRD) Non-Af 125, BUN/Creatinine Ratio 18.2, Glucose 211 H, Calcium 8.9 10/26/19 08:06: POC Glucose 209 H 10/26/19 11:12: POC Glucose 239 H Current Medications Acetaminophen (Tylenol) 650 mg PO Q6H PRN PRN PRN Reason: Pain Score 1-10/Temp > 100.7 F Albuterol Sulfate (Ventolin Aerosols) 2.5 mg INHALATION Q2H PRN PRN PRN Reason: SOB/Wheezing Dextrose (D50w Syringe) 0 gm IV X1 PRN; Protocol PRN Reason: Hypoglycemia Enoxaparin Sodium (Lovenox) 40 mg SC DAILY [facility] Last Admin: 10/26/19 10:24 Dose: 40 mg Documented by: Glucagon () 1 mg IM .X1 PRN PRN Reason: Hypoglycemia Sodium Chloride () 250 mls @ 15 mls/hr IV .[id number] PRN PRN Reason: Saline Flush Insulin Glargine (Lantus (Bkc)) 18 units SC [facility] Last Admin: 10/26/19 08:09 Dose: 18 u Documented by: Insulin Human Lispro (Humalog Kwikpen (Bkc)) 0 unit SC ACHS [facility]; Protocol Last Admin: 10/26/19 11:14 Dose: 3 u Documented by: Insulin Human Lispro (Humalog Kwikpen (Bkc)) 6 unit SC [facility] Last Admin: 10/26/19 08:39 Dose: 6 u Documented by: Insulin Human Lispro (Humalog Kwikpen (Bkc)) 6 unit SC DINNER INGRID Insulin Human Lispro (Humalog Kwikpen (Bkc)) 6 unit SC LUNCH [facility] Last Admin: 10/26/19 11:15 Dose: 6 u Documented by: Ondansetron HCl (Zofran) 4 mg IV Q8H PRN PRN PRN Reason: NAUSEA/VOMITING Sodium Chloride () 10 - 40 ml IV UD PRN PRN Reason: SALINE FLUSH STROKE Vital Signs/Narrative: Vital Signs Pulse Resp BP Pulse Ox 10/26/19 11:40 75 10/26/19 10:00 72 118 H 98/64 98 10/26/19 09:00 73 18 102/67 97 Medical Necessity - Tobacco Use Smoking Status: Current every day smoker Tobacco Use: Cigarettes Assessment/Plan All Active Problems (Last Reviewed 10/26/19 @ 02:[address] Tony Lopez MD) DKA (diabetic ketoacidoses) (Acute) 1. DKA - improved. off insulin drip. keep in PCU overnight and titrate insulin to response. Hx GB pancreatitis with enlargement of the pancreas. previously told he had pancreatic cancer, however this was ruled out per pt. Pt will need follow up with endocrinology. D/w with patient will refer to Dr. Franco at [place]. 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 2. Pseudohyponatremia, hyperkalemia, DANIEL - resolved. DVT ppx: Lovenox DC planning: If blood sugars remain stable overnight, patient will return home. Will need to order glucometer and supplies, pen needles at discharge. This patient was seen by Joby Goyal PA-C under the supervision of Doctor Robbins.
--- NOTE | 2019-10-26 13:35 | CASEMGMT ---
ZOLTAN DUMONT assessment: Face to Face with patient for initial transition planning/care coordination assessment. ZOLTAN DUMONT introduced self and role at [facility], pt voices understanding and consents to assessment at this time. Pt is sitting up in bed in no distress at this time. Pt is A/Ox4 at this time and answers all questions appropriately at this time. Care providers, pharmacy, and demographics verified at this time. Presentation: Pt c/o 'crumbling teeth', 40lb wgt loss, vision changes, vomiting and no energy Admitting dx: DKA, pt is new onset DM PCP: [facility] Specialists: Pt states no current specialists but plans to f/u with whoever we refer him to. [facility]erred [facility]acy: [facility] Insurance: [facility] Prescription Benefit: CRS Living Will/HPOA: Pt states does not have LW/HPOA, but would like to complete AD's at this time. Cindy SW aware, voices understanding. LNOK: Elvia Brown, Living Arrangements: Pt states lives with in 2 story apartment and states no concerns at home at this time. Pt states is independent with ADL's. Transportation: Pt states drives self and states no transportation concerns at this time. DME/HHC: Pt states no current DME but will need glucometer/supplies at discharge. Pt states no hx of HHC or SNF in the past. Pt states no concerns with going home at time of discharge. Pt is eager to learn about DM and be compliant with what he needs to do once home. 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 Pt states smokes about a pack/day and rarely drinks ETOH. Pt states has not had a drink since he had his gallbladder removed January 2019. Pt voices no further concerns/needs at this time. CM to follow for any further discharge planning/needs. Advised pt to ask for CM if any further questions/concerns/needs arise, voices understanding. Pt Goal: Home Plan: Home [place] ZOLTAN DUMONT
--- NOTE | 2019-10-26 13:35 | PCM.NTREPORT ---
Nutrition Therapy Report - History Nutrition Services has been consulted to:: Conduct nutrition education Current diet / nutrition support order:: cardiac, 1800 calorie controlled - Anthropometric Measurements Height:: 6 ft 3 in Weight:: 94.7 kg Body Mass Index (BMI):: 26.1 - Relevant Labs Relevant Labs:: Hgb 18.1 g/dL (13.0-16.5) H* 10/25/19 19:44 Immature Gran % (Auto) 1.100 % (0.0-0.9) H 10/25/19 19:44 Neut % (Auto) 46.0 % (47-70) L 10/26/19 06:20 Lymph % (Auto) 42.5 % (19-41) H 10/26/19 06:20 Baso % (Auto) 1.3 % (0-1) H 10/26/19 06:20 Sodium 135 mmol/L (136-145) L 10/26/19 06:20 Potassium 5.2 mmol/L (3.5-5.1) H 10/25/19 19:44 Chloride 110 mmol/L (98-107) H 10/26/19 06:20 Carbon Dioxide 20.0 mmol/L (21.0-32.0) L 10/26/19 06:20 Anion Gap 18 (5-15) H 10/25/19 19:44 BUN 20 mg/dL (7-18) H 10/25/19 19:44 Creatinine 1.40 mg/dL (0.70-1.30) H 10/25/19 19:44 Est GFR (MDRD) Non-Af 58 mL/min (>60) L 10/25/19 19:44 Glucose 211 mg/dL (74-106) H 10/26/19 06:20 Hemoglobin A1c 11.8 % (3.8-5.6) H 10/25/19 23:00 Calcium 10.7 mg/dL (8.5-10.1) H 10/25/19 19:44 - Assessment Food / Nutrition-Related History:: Pt reports anorexia, nausea, polydipsa, and wt loss over past 1 month. States his tastes have been altered, so most foods were too bland or too salty. States UBW 235#, CBW 208.8#-11% wt loss, significant for malnutrition. Pt w/ poor dentition- can only eat soft foods. Plans to get dentures but has had trouble finding a dentist. 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 Newly dx DM- agreeable to nutrition education, see below. - Nutrition Diagnosis Problem / Etiology / Signs & Symptoms (PES):: Acute, severe malnutrition related to hyperglycemia, anorexia as evidenced by 26#/11% wt loss x 1 month, estimated PO intake meeting less than 50% of pt's estimated nutritional needs for >1 month. Evidence of Malnutrition Exists:: Yes Severe PCM:: Acute Illness - Nutrition Intervention Nutrition Prescription:: [id number] calories/day, 84-94 g protein - Food / Nutrient Delivery Interventions Summary of nutrition intervention:: Lengthy discussion w/ pt about sources of carbohydrates in diet and relationship to diabetes/high blood sugar. Pt states he has been able to cut back on mountain dew- was drinking 2 2L bottles/day at one point in time. Pt believes he will be able to eliminate soda once discharged. He does not like diet soda. Reviewed carbohydrate content of foods. Encouraged increased non-starchy vegetable intake. Pt states vegetable consumption will improve when his teeth are fixed. Discussed following the plate method for meals to limit carbohydrate intake. Reviewed label reading to determine carb content of foods- encouraged no more than 5 servings of carbs (75g) per meal. 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 He notes his kids as a large motivator to make dietary changes and says his will be very supportive. Discussed follow-up w/ [facility]. Information provided. Pt declined need for soft diet order- states he will select foods he knows he can chew. Nutrition support ordered as / adjusted to:: will change diet to carbohydrate controlled as a calorie controlled diet is not appropriate given acute malnutrition. Pt was educated on selecting 5 servings of carbohydrates per meal. Nutrition education provided?: Yes - See above. - MNT Monitoring Further MNT monitoring and evaluation required?: Yes - Strongly recommend referral to [facility] upon discharge MNT Follow-up in:: 1-2 days
--- NOTE | 2019-10-26 13:43 | NURSING ---
Just Recently arrived to PCU from ICU. Pt is ordering lunch.
[2019-10-26 15:50] LABS: Anion Gap 4 (5-15); BUN 12 mg/dL (7-18); BUN/Creat Ratio 16.3 RATIO (10-20); Calcium,Total 9.7 mg/dL (8.5-10.1); Chloride 109 mmol/L (98-107); Creatinine, Serum 0.74 mg/dL (0.70-1.30); EST Glomerular Filtration Rate 121 mL/min (>60); Est Glom Filt Rate - Afr Amer 146 mL/min (>60); Estimated Creatinine Clearance 145.91 ml/min; Glucose 173 mg/dL (74-106); Potassium 3.7 mmol/L (3.5-5.1); Sodium Level 136 mmol/L (136-145)
[2019-10-26 17:36] LABS: Bedside Glucose 226 mg/dL (70-110)
[2019-10-26 19:45] LABS: Anion Gap 6 (5-15); BUN 10 mg/dL (7-18); BUN/Creat Ratio 13.4 RATIO (10-20); Calcium,Total 9.4 mg/dL (8.5-10.1); Chloride 106 mmol/L (98-107); Creatinine, Serum 0.75 mg/dL (0.70-1.30); EST Glomerular Filtration Rate 119 mL/min (>60); Est Glom Filt Rate - Afr Amer 144 mL/min (>60); Estimated Creatinine Clearance 143.96 ml/min; Glucose 268 mg/dL (74-106); Potassium 3.8 mmol/L (3.5-5.1); Sodium Level 134 mmol/L (136-145)
[2019-10-26] MEDS: 0.9% Saline Lock 10 ML Syringe IV (21:12)
[2019-10-26 21:21] LABS: Bedside Glucose 259 mg/dL (70-110)
[2019-10-27] VITALS (7 sets, daily range): BP systolic 103–124; BP diastolic 63–71; PULSE 65–120; RESP 16–18; TEMP 36.6–36.8; O2SAT 95–100
[2019-10-27 06:41] LABS: Anion Gap 11 (5-15); BUN 8 mg/dL (7-18); BUN/Creat Ratio 12.5 RATIO (10-20); Calcium,Total 9.2 mg/dL (8.5-10.1); Chloride 104 mmol/L (98-107); Creatinine, Serum 0.64 mg/dL (0.70-1.30); EST Glomerular Filtration Rate 142 mL/min (>60); Est Glom Filt Rate - Afr Amer 171 mL/min (>60); Estimated Creatinine Clearance 168.71 ml/min; Glucose 249 mg/dL (74-106); Potassium 3.4 mmol/L (3.5-5.1); Sodium Level 136 mmol/L (136-145)
[2019-10-27] MEDS: Insulin Lispro 100 UNIT/ML INSULN.PEN SC ×2 (07:54→11:11)
[2019-10-27] MEDS: Insulin Lispro 100 UNIT/ML INSULN.PEN 6 UNIT SC ×2 (07:55→11:12)
[2019-10-27] MEDS: Enoxaparin 40 MG/0.4 ML Syringe SC (07:55)
[2019-10-27 11:06] LABS: Bedside Glucose 294 mg/dL (70-110)
--- NOTE | 2019-10-27 11:11 | DCINST_ITS ---
- Discharge Diagnoses Current Active Problems: Current Active and Chronic Problems (Last Reviewed 10/26/19 @ 02:[address] Tony Lopez MD) DKA (diabetic ketoacidoses) (Acute) You will use the following diet at home:: Calorie/Carbohydrate Controlled (specify 1200, 1400, etc) - 1800 sarah / day Your food should be the consistency of: Regular Your liquids should be the consistency of: Regular/Thin Discharge Activity: Return to Normal Activity Allergies/Adverse Reactions: Allergies acetaminophen [From Vicodin] Adverse Reaction (Mild, Verified 10/25/19 19:38) tremors hydrocodone [From Vicodin] Adverse Reaction (Mild, Verified 10/25/19 19:38) tremors Medications to take at Discharge Insulin Glargine [Lantus SoloStar Pen] 20 units SUBCUT BREAKFAST #1 pen 10/27/19 Insulin Lispro [Humalog KwikPen] 6 unit SUBCUT TID #1 insuln.pen 10/27/19 Syring-Needl,Disp,Insul,0.3 ml [Insulin Syringe] 1 [facility] UD #120 disp.syrin 10/27/19 The following prescriptions were given: Insulin Lispro [Humalog KwikPen] 6 unit SUBCUT TID #1 insuln.pen Transmission Status: Pending to [facility] #30 Syring-Needl,Disp,Insul,0.3 ml [Insulin Syringe] 1 [facility] UD #120 disp.syrin Transmission Status: Pending to [facility] #30 Insulin Glargine [Lantus SoloStar Pen] 20 units SUBCUT BREAKFAST #1 pen Transmission Status: Pending to [facility] #30 Orders to be completed after discharge: Glucometer Location: None Selected Primary Care Physician: Lit Ryan MD [Primary Care Provider] - Please follow up with your Primary Care Physician in: 1 week Test Results: Test results from this visit will be discussed in further detail at your follow- up appointment, if applicable. Please Follow Up With: Christiano Franco MD When: 2 weeks Proposed Discharge Date: 10/27/19
[2019-10-27 11:30] LABS: Bedside Glucose 292 mg/dL (70-110)
--- NOTE | 2019-10-27 11:40 | DS.PCM_ITS ---
<Joby Goyal - Last Filed: 10/27/19 11:40> Discharge Date and Diagnosis - Problem List Patient Problems: Active and Suspected Problems (Last Reviewed 10/26/19 @ 02:[address] Tony Lopez MD) DKA (diabetic ketoacidoses) (Acute) Date of Admission: 10/25/19 Date of Discharge: 10/27/19 - Primary Discharge Diagnosis Acute Problems: Active Problems (Last Reviewed 10/26/19 @ 02:[address] Tony Lopez MD) DKA (diabetic ketoacidoses) (Acute) Hospital Course and Treatment Operations: None Procedures: None Summary of Care Provided: Hospital course: The patient is a 49 year old M with pmhx of gallbladder pancreatitis who presented to the ER with c/o nausea and vomiting. He had been having increased thirst and urination, worsening vision, and fatigue. He was found to have DKA with glucose 669, + acetone, DANIEL and hyperkalemia. He was admitted to the ICU on an insulin drip. He had no prior hx of diabetes. He was transitioned to lantus and TID insulin. Diabetic education and glucometer/insulin training was provided. He was discharged home in stable condition. He was referred to Dr. Tahir mendosa, endocrinology at [place] and should follow up in 2 weeks in addition to follow up with PCP in 1-2 weeks. This patient was seen by Joby Goyal PA-C under the supervision of Doctor Robbins. [] Patient Problems: Active and Suspected Problems (Last Reviewed 10/26/19 @ 02:[address] Tony Lopez MD) DKA (diabetic ketoacidoses) (Acute) - Physical Exam Vitals/I&O's: Vital Signs Temp Pulse Resp BP Pulse Ox 98.1 F 120 H 18 124/71 H 95 10/27/19 09:18 10/27/19 10:48 10/27/19 09:18 10/27/19 09:18 10/27/19 06:52 Oxygen Delivery Method Room Air Weight: 209 lb 3.499 oz Body Mass Index (BMI) 26.1 Finger Stick Blood Glucose 209 Intake and Output for Last 24 Hours 10/25/19 10/26/19 10/27/19 23:59 23:59 23:59 Intake Total 2012.37 / 2013.37 1840.24 / 1840.24 860 / 860 Output Total 400 / 400 0 / 0 Balance 161.37 / 161.37 / 0 / 860 General: Alert, Oriented x3, Cooperative HEENT: Atraumatic, PERRLA, EOMI, Normocephalic, - - poor dentition Neck: Supple, No JVD, Negative Carotid Bruits Lungs: Clear to auscultation, Normal air movement Cardiovascular: Regular rate, No murmurs Abdomen: Bowel Sounds Present, Soft, Non Tender Extremities: No edema, Capillary Refill Less than 3 Seconds Skin: No rashes, No breakdown Musculoskeletal: No Tenderness to Palpation of Joints or Extremities Neurological: Cranial nerves II-XII grossly intact Psych/Mental Status: Normal Affect, Appropriate, Alert and oriented to time, place, person, mood and affect Laboratory Results 10/26/19 15:24: Sodium 136, Potassium 3.7, Chloride 109 H, Carbon Dioxide 23.0, Anion Gap 4 L, BUN 12, Creatinine 0.74, Estim Creat Clear Calc 145.91, Est GFR (MDRD) Af Amer 146, Est GFR (MDRD) Non-Af 121, BUN/Creatinine Ratio 16.3, Glucose 173 H, Calcium 9.7 10/26/19 17:29: POC Glucose 226 H 10/26/19 19:01: Sodium 134 L, Potassium 3.8, Chloride 106, Carbon Dioxide 22.0, Anion Gap 6, BUN 10, Creatinine 0.75, Estim Creat Clear Calc 143.96, Est GFR (MDRD) Af Amer 144, Est GFR (MDRD) Non-Af 119, BUN/Creatinine Ratio 13.4, Glucose 268 H, Calcium 9.4 10/26/19 21:04: POC Glucose 259 H 10/27/19 06:07: Sodium 136, Potassium 3.4 L, Chloride 104, Carbon Dioxide 21.0, Anion Gap 11, BUN 8, Creatinine 0.64 L, Estim Creat Clear Calc 168.71, Est GFR (MDRD) Af Amer 171, Est GFR (MDRD) Non-Af 142, BUN/Creatinine Ratio 12.5, Glucose 249 H, Calcium 9.2 10/27/19 07:20: POC Glucose 292 H 10/27/19 10:58: POC Glucose 294 H Current Medications Acetaminophen (Tylenol) 650 mg PO Q6H PRN PRN PRN Reason: Pain Score 1-10/Temp > 100.7 F Albuterol Sulfate (Ventolin Aerosols) 2.5 mg INHALATION Q2H PRN PRN PRN Reason: SOB/Wheezing Dextrose (D50w Syringe) 0 gm IV X1 PRN; Protocol PRN Reason: Hypoglycemia Enoxaparin Sodium (Lovenox) 40 mg SC DAILY [facility] Last Admin: 10/27/19 07:55 Dose: 40 mg Documented by: Glucagon () 1 mg IM .X1 PRN PRN Reason: Hypoglycemia Sodium Chloride () 250 mls @ 15 mls/hr IV .[id number] PRN PRN Reason: Saline Flush Insulin Glargine (Lantus (Bkc)) 18 units SC BREAKFAST [facility] Last Admin: 10/27/19 07:52 Dose: 18 u Documented by: Insulin Human Lispro (Humalog Kwikpen (Bkc)) 0 unit SC ACHS [facility]; Protocol Last Admin: 10/27/19 11:11 Dose: 3 u Documented by: Insulin Human Lispro (Humalog Kwikpen (Bkc)) 6 unit SC BREAKFAST [facility] Last Admin: 10/27/19 07:55 Dose: 6 u Documented by: Insulin Human Lispro (Humalog Kwikpen (Bkc)) 6 unit SC DINNER [facility] Last Admin: 10/26/19 17:31 Dose: 6 units Documented by: Insulin Human Lispro (Humalog Kwikpen (Bkc)) 6 unit SC LUNCH [facility] Last Admin: 10/27/19 11:12 Dose: 6 u Documented by: Ondansetron HCl (Zofran) 4 mg IV Q8H PRN PRN PRN Reason: NAUSEA/VOMITING Sodium Chloride () 10 - 40 ml IV UD PRN PRN Reason: SALINE FLUSH Last Admin: 10/26/19 21:12 Dose: 10 ml Documented by: Discharge Diet: 1800 Calorie Control Diet Discharge Activity: Return to Normal Activity Home Medications: Medications to take at Discharge Insulin Glargine [Lantus SoloStar Pen] 20 units SUBCUT BREAKFAST #1 pen 10/27/19 Insulin Lispro [Humalog KwikPen] 6 unit SUBCUT TID #1 insuln.pen 10/27/19 Syring-Needl,Disp,Insul,0.3 ml [Insulin Syringe] 1 [facility] UD #120 disp.syrin 10/27/19 Bad tableOther Amb Orders: Glucometer Location: None Selected Primary Care Physician: Lit Ryan MD [Primary Care Provider] - Please follow up with your Primary Care Physician in: 1 week Please Follow Up With: Christiano Franco MD When: 2 weeks Please Follow Up With: Lit Ryan MD Disposition: Home Minutes spent on discharge:: 35 Patient Condition:: Stable Medical Necessity - Tobacco Use Smoking Status: Current every day smoker Tobacco Use: Cigarettes Meaningful Use Info Meaningful Use Diagnoses (Choose all that apply): None applicable <Shakira Robbins E - Last Filed: 10/27/19 12:02> Discharge Date and Diagnosis - Primary Discharge Diagnosis Acute Problems: Active Problems (Last Reviewed 10/26/19 @ 02:[address] Tony Lopez MD) DKA (diabetic ketoacidoses) (Acute) Hospital Course and Treatment Summary of Care Provided: Hospitalist note: Discharge summary above reviewed and I concur with above discharge treatment plan. Patient presented to the emergency department because of weakness, nausea and vomiting as well as thirst and increased urination and he was found to have diabetic ketoacidosis. He had no known history of diabetes in the past. In the emergency department, his blood glucose was 669, carbon dioxide was 16 and anion gap was 18. He was found to have acute kidney injury and pseudohyponatremia secondary to hyperglycemia. Patient was admitted to the intensive care unit for acute DKA, started on DKA protocol with IV insulin drip and electrolyte replacement as well as IV fluids. His hemoglobin A1c was 11.8%. Patient had a strong family history of diabetes and he had gallstone pancreatitis back on January,. With IV insulin drip, anion gap closed and serum bicarbonate came down to normal. His sugar came down to 200s. Patient was started on Lantus and pre-meal Humalog. Diabetic education was provided to the patient including self injecting insulin. Patient discharged home in a stable condition, discharged on Lantus 20 units daily, discharged on Humalog 6 units 3 times daily pre-meals, recommended to check blood sugar at least 3-4 times daily, keep a blood sugar log and recommended follow-up with PCP in 1 week and follow-up with endocrinology in 2 weeks. - Physical Exam General: Alert, Oriented x3, Cooperative, No apparent distress. HEENT: Atraumatic, PERRLA, EOMI. Neck: Supple, No JVD, Negative Carotid Bruits, Trachea Midline, Thyroid Normal. Lungs: Clear to auscultation, Normal air movement, No rhonchi, No wheeze, No rales. Cardiovascular: Regular rate, Regular Rhythm, Normal S1, Normal S2, PMI Normal. Abdomen: Bowel Sounds Present, Soft, Non Tender, Non-Distended, No Hepato- splenomegaly. Extremities: No clubbing, No cyanosis, No edema Skin: No rashes, No breakdown Neurological: Cranial nerves are intact, neuro grossly intact Vital Signs are stable. This note was generated with [employer] dictation software. It may contain incorrect words, spelling, and punctuation that were not noted in checking the note before signing. - Physical Exam Vitals/I&O's: Vital Signs Temp Pulse Resp BP Pulse Ox 98.1 F 120 H 18 124/71 H 95 10/27/19 09:18 10/27/19 10:48 10/27/19 09:18 10/27/19 09:18 10/27/19 06:52 Oxygen Delivery Method Room Air Weight: 209 lb 3.499 oz Body Mass Index (BMI) 26.1 Finger Stick Blood Glucose 209 Intake and Output for Last 24 Hours 10/25/19 10/26/19 10/27/19 23:59 23:59 23:59 Intake Total 2012.37 / 2012.37 1840.24 / 1840.24 860 / 860 Output Total 400 / 400 0 / 0 Balance 1613.37 / 1613.37 1840.24 / 1840.24 860 / 860 Laboratory Results 10/26/19 15:24: Sodium 136, Potassium 3.7, Chloride 109 H, Carbon Dioxide 23.0, Anion Gap 4 L, BUN 12, Creatinine 0.74, Estim Creat Clear Calc 145.91, Est GFR (MDRD) Af Amer 146, Est GFR (MDRD) Non-Af 121, BUN/Creatinine Ratio 16.3, Glucose 173 H, Calcium 9.7 10/26/19 17:29: POC Glucose 226 H 10/26/19 19:01: Sodium 134 L, Potassium 3.8, Chloride 106, Carbon Dioxide 22.0, Anion Gap 6, BUN 10, Creatinine 0.75, Estim Creat Clear Calc 143.96, Est GFR (MDRD) Af Amer 144, Est GFR (MDRD) Non-Af 119, BUN/Creatinine Ratio 13.4, Glucose 268 H, Calcium 9.4 10/26/19 21:04: POC Glucose 259 H 10/27/19 06:07: Sodium 136, Potassium 3.4 L, Chloride 104, Carbon Dioxide 21.0, Anion Gap 11, BUN 8, Creatinine 0.64 L, Estim Creat Clear Calc 168.71, Est GFR (MDRD) Af Amer 171, Est GFR (MDRD) Non-Af 142, BUN/Creatinine Ratio 12.5, Glucose 249 H, Calcium 9.2 10/27/19 07:20: POC Glucose 292 H 10/27/19 10:58: POC Glucose 294 H Current Medications Acetaminophen (Tylenol) 650 mg PO Q6H PRN PRN PRN Reason: Pain Score 1-10/Temp > 100.7 F Albuterol Sulfate (Ventolin Aerosols) 2.5 mg INHALATION Q2H PRN PRN PRN Reason: SOB/Wheezing Dextrose (D50w Syringe) 0 gm IV X1 PRN; Protocol PRN Reason: Hypoglycemia Enoxaparin Sodium (Lovenox) 40 mg SC DAILY [facility] Last Admin: 10/27/19 07:55 Dose: 40 mg Documented by: Glucagon () 1 mg IM .X1 PRN PRN Reason: Hypoglycemia Sodium Chloride () 250 mls @ 15 mls/hr IV .[id number] PRN PRN Reason: Saline Flush Insulin Glargine (Lantus (Bkc)) 18 units SC BREAKFAST [facility] Last Admin: 10/27/19 07:52 Dose: 18 u Documented by: Insulin Human Lispro (Humalog Kwikpen (Bkc)) 0 unit SC ACHS [facility]; Protocol Last Admin: 10/27/19 11:11 Dose: 3 u Documented by: Insulin Human Lispro (Humalog Kwikpen (Bkc)) 6 unit SC BREAKFAST [facility] Last Admin: 10/27/19 07:55 Dose: 6 u Documented by: Insulin Human Lispro (Humalog Kwikpen (Bkc)) 6 unit SC DINNER [facility] Last Admin: 10/26/19 17:31 Dose: 6 units Documented by: Insulin Human Lispro (Humalog Kwikpen (Bkc)) 6 unit SC LUNCH [facility] Last Admin: 10/27/19 11:12 Dose: 6 u Documented by: Ondansetron HCl (Zofran) 4 mg IV Q8H PRN PRN PRN Reason: NAUSEA/VOMITING Sodium Chloride () 10 - 40 ml IV UD PRN PRN Reason: SALINE FLUSH Last Admin: 10/26/19 21:12 Dose: 10 ml Documented by: Disposition: Home Minutes spent on discharge:: 32 Patient Condition:: Stable Meaningful Use Info Meaningful Use Diagnoses (Choose all that apply): None applicable Inpatient E&M: 21994 Disch Hosp
--- NOTE | 2019-10-27 11:57 | CASEMGMT ---
This RN CM to room at this time to discuss discharge plan with pt at this time. Pt aware script for glucometer and supplies was sent to [facility] as well as insulin. Pt states his only concern is getting appt set up with Dr. Franco, endocrinology, and wants to make sure it's done before he leaves here. Matthieu, PCU laboratory secretary, aware at this time. Pt voices no further questions/concerns/needs at this time. [place] ZOLTAN DUMONT
--- NOTE | 2019-10-27 12:29 | PHA.DC.MR ---
Pharmacy Service has performed discharge medication reconciliation for this patient. The patient's discharge medication list was reviewed for discrepancies and discrepancies were resolved. Home Medications Insulin Glargine [Lantus SoloStar Pen] 20 units SUBCUT BREAKFAST #1 pen 10/27/19 Insulin Lispro [Humalog KwikPen] 6 unit SUBCUT TID #1 insuln.pen 10/27/19 Syring-Needl,Disp,Insul,0.3 ml [Insulin Syringe] 1 [facility] UD #120 disp.syrin 10/27/19
--- NOTE | 2019-10-27 14:07 | NURSING ---
SN documentation read and reviewed.
== END 2019-10-27 12:22 | disposition home or self-care (01) | DRG 420 ==
LOC: ED 21:01 → ICU 21:18 → PCU 10-26 13:10
PROVIDERS: Admitting Provider Hospitalist; Emergency Provider Emergency Medicine; PCP Family Medicine; Visit Provider Hospitalist
DX: E11.10 Type 2 diabetes mellitus with ketoacidosis without coma (principal); N17.9 Acute kidney failure, unspecified; E87.5 Hyperkalemia; E87.1 Hypo-osmolality and hyponatremia; E44.0 Moderate protein-calorie malnutrition; F17.210 Nicotine dependence, cigarettes, uncomplicated; R63.0 Anorexia; Z68.24 Body mass index [BMI] 24.0-24.9, adult; Z87.19 Personal history of other diseases of the digestive system; Z79.4 Long term (current) use of insulin; Z83.3 Family history of diabetes mellitus
CPT/HCPCS: 36415; 80048; 81001; 82009; 82962; 83036; 83735; 85025; 97802; 99285; J7030; A4216

== ENCOUNTER 2021-03-22 20:13 | Emergency (ER) | payer MEDICAID, SELFPAY ==
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
== END 2021-03-22 20:22 | disposition home or self-care (01) ==
PROVIDERS: Emergency Provider Emergency Medicine; PCP Family Medicine; Visit Provider Emergency Medicine
DX: S60.211A Contusion of right wrist, initial encounter (principal); E11.9 Type 2 diabetes mellitus without complications; V99.XXXA Unspecified transport accident, initial encounter; Y93.89 Activity, other specified; Y99.8 Other external cause status; I10 Essential (primary) hypertension; F17.200 Nicotine dependence, unspecified, uncomplicated; Z79.84 Long term (current) use of oral hypoglycemic drugs; Z79.899 Other long term (current) drug therapy
CPT/HCPCS: 73110; 99284

== ENCOUNTER → 2021-08-01 | Outpatient (CLI) | payer MEDICAID, SELFPAY ==
[2021-08-01 12:50] LABS: Vitamin D,25 Hydroxy 17.6 ng/mL
[2021-08-01 12:56] LABS: ALB/GLOB Ratio 1.1 RATIO (0.9-2.4); AST(SGOT) 13 U/L (15-37); Alanine Aminotransfer ALT/SGPT 28 U/L (16-61); Albumin, Serum 3.8 g/dL (3.2-5.0); Alkaline Phosphatase 126 U/L (45-117); Anion Gap 4 (5-15); BUN 9 mg/dL (7-18); BUN/Creat Ratio 9.8 RATIO (10-20); Calcium,Total 9.4 mg/dL (8.5-10.1); Chloride 106 mmol/L (98-107); Cholesterol 136 mg/dL (200); Creatinine, Serum 0.92 mg/dL (0.70-1.30); EST Glomerular Filtration Rate 93 mL/min (>60); Est Glom Filt Rate - Afr Amer 112 mL/min (>60); Globulin 3.4 g/dL (2.2-4.2); Glucose 107 mg/dL (74-106); High Density Lipoprotein 32 mg/dL; Microalbumin,Random Urine 13.5 mg/L (NO RANGE EST.); Microalbumin:Creatinine Ratio 20.6 mg/g CRE (<30 mg/g CRE); Potassium 4.5 mmol/L (3.5-5.1); Protein, Total 7.2 g/dL (6.4-8.2); Sodium Level 138 mmol/L (136-145); Thyroid Stim Hormone (TSH) 1.37 uIU/mL (0.358-3.74); Triglycerides 163 mg/dL; Very Low Density Lipoprotein 33 mg/dL (5-40)
== END | disposition home or self-care (01) ==
LOC: BIMLAB 10:32
PROVIDERS: PCP Family Medicine; Referring Provider Internal Medicine Endocrinology, Diabetes & Metabolism; Visit Provider Internal Medicine Endocrinology, Diabetes & Metabolism
DX: E11.9 Type 2 diabetes mellitus without complications (principal); E78.2 Mixed hyperlipidemia; E66.3 Overweight; E55.9 Vitamin D deficiency, unspecified
CPT/HCPCS: 36415; 80053; 80061; 82043; 82306; 82570; 84443

== ENCOUNTER 2021-12-17 14:09 | Emergency (ER) | payer MEDICAID, SELFPAY ==
[2021-12-17 14:11] VITALS: BP 93/73; PULSE 128; RESP 16; TEMP 35.9; O2SAT 99; BMI 25.0
--- NOTE | 2021-12-17 14:16 | EKG12_ITS ---
Test Reason : CP Blood Pressure : / mmHG Vent. Rate : 130 BPM Atrial Rate : 130 BPM P-R Int : 154 ms QRS Dur : 078 ms QT Int : 290 ms P-R-T Axes : 080 145 074 degrees QTc Int : 426 ms Sinus tachycardia Possible Left atrial enlargement Right axis deviation Pulmonary disease pattern Abnormal ECG Confirmed by NIRMAL ELISE, NINFA ([id number]), visual effects editor GLADYS CHARLES ([id number]) on 12/19/2021 2:09:22 P M Referred By: BITA/CÉSAR Confirmed By:GELY KINNEY MD
[2021-12-17 14:34] LABS: Absolute Lymphocyte Count 0.73 X10^3/uL (0.83-4.51); Absolute Neutrophil Count 9.8 X10^3/uL (2.0-7.7); Basophil# 0.12 X10^3/uL; Eosinophil# 0.15 X10^3/uL; Eosinophils% 1.3 % (0-5); Hematocrit 45.8 % (40-54); Hemoglobin 16.4 g/dL (13.0-16.5); Lymphocyte # 0.73 X10^3/ul (0.83-4.51); Lymphocyte % 6.3 % (19-41); Mean Corp Hgb Conc 35.8 g/dL (32-36); Mean Corpuscular Hgb 32.2 pg (27.0-32.0); Mean Corpuscular Volume 89.8 fL (80-94); Mean Platelet Vol. 10.6 fl (6.2-12.0); Monocyte# 0.68 X10^3/uL; Monocyte% 5.8 % (0-10); NRBC Flagged by Analyzer 0 % (0-5); Neutrophil # 9.76 X10^3/uL (2.7-7.7); Neutrophil % 83.6 % (47-70); Platelet Count 181 K/mm3 (150-450); RBC Distribution Width CV 12.6 % (11.6-14.6); RBC Distribution Width SD 41.3 fl (35.1-43.9); White Blood Count 11.7 K/mm3 (4.4-11.0)
[2021-12-17 14:44] VITALS: O2SAT 95
--- NOTE | 2021-12-17 14:50 | RAD_ITS ---
STUDY: X-RAY CHEST REASON FOR EXAM: Male, 51 years old. Chest pain. TECHNIQUE: Single AP portable view of the chest. COMPARISON: Comparison is made with prior study dated 02/10/2019. FINDINGS: EKG electrodes are seen. Hyperinflation. Minimal increased linear markings at the left lung base suggestive of minimal linear atelectasis. There is no demonstrated pleural abnormality. Normal size heart. Normal mediastinum and vane. Normal visualized pulmonary arteries. Normal visualized aortic arch and descending thoracic aorta. There are diffuse degenerative changes of the visualized thoracic spine. Normal visualized ribs, clavicles, and shoulders. There is no demonstrated abnormality of the visualized soft tissue structures of the upper abdomen. RAD/Chest 1 View (Portable) IMPRESSION: Hyperinflation. Minimal increased linear markings at the left lung base suggestive of linear atelectasis. Electronically Signed: Miquel Gonzalez MD at 15:22 EDT ,
[2021-12-17 14:51] LABS: Anion Gap 12 (5-15); BUN 11 mg/dL (7-18); Chloride 95 mmol/L (98-107); Creatinine, Serum 0.91 mg/dL (0.70-1.30); EST Glomerular Filtration Rate 93 mL/min (>60); Est Glom Filt Rate - Afr Amer 113 mL/min (>60); Estimated Creatinine Clearance 116.07 ml/min; Glucose 383 mg/dL (74-106); Potassium 4.2 mmol/L (3.5-5.1); Sodium Level 129 mmol/L (136-145); Troponin-I HS 4 pg/mL (3.0-78.0)
--- NOTE | 2021-12-17 15:24 | VDLE_ITS ---
Reason For Study: Pain Procedure LEFT This is a venous duplex using B-mode, color GSV is normal. flow and spectral Doppler. CFV is compressible, spontaneous, phasic, Exam performed portable in ED. competent, and demonstrates normal A preliminary report was called and/or faxed augmentation. to ED RN/Dr. Escobar. FV is compressible, spontaneous, phasic, competent and demonstrates normal augmentation. POP V is compressible, spontaneous, phasic, competent and demonstrates normal augmentation. T/P Trunk is compressible. PTV is compressible. LT PerV is compressible. VL/Venous Duplex US, Unilateral Interpretation Summary There is no evidence of left lower extremity deep vein thrombosis. Left great s aphenous vein appears patent and compressible segmentally. Ordering Physician: Thuy Escobar Referring Physician: Vineet Ryan Performed By: Bing Barajas, JOANA, RVT
--- NOTE | 2021-12-17 15:26 | EDS_ITS ---
HPI History of Present Illness Chief Complaint: Chest Pain Informant: patient Narrative Narrative: Patient is a 51-year-old male with history of [id number] diabetes mellitus, hypertension and hyperlipidemia presenting for back pain and leg pain. Patient states around 515 this morning he woke up with a severe cramp in his left calf. It lasted for about 15 minutes. He is continued have discomfort in his calf throughout the day. He notes that he walked down the hill [place] (about half a mile) to his truck and then had to walk back. He felt short of breath and notes over the past few months he been having dyspnea on exertion. He developed bilateral mid thoracic squeezing back pain. Is worse with movement. Did not take anything for his symptoms prior to arrival. He denies any chest pain, nausea or vomiting. He states he currently feels hungry. Did not take his medicine this morning and thinks his blood sugar is high. Denies any fever or chills. Denies any new cough. Is a tobacco user. No other complaints at this time. [facility] Medical History GERD (gastroesophageal reflux disease) history of lymphatic infection Nicotine dependence Type 2 diabetes mellitus without complications Home Medications atorvastatin 20 mg tablet (Lipitor) 20 mg PO DAILY 02/05/20 [History Last Taken Unknown] lisinopril 5 mg tablet (Zestril) 5 mg PO DAILY 02/05/20 [History Last Taken Unknown] empagliflozin 25 mg tablet (Jardiance) 25 mg PO DAILY #90 tabs 08/01/21 [Rx Last Taken Unknown] metformin 1,000 mg tablet 1,000 mg PO BID #180 tabs 08/01/21 [Rx Last Taken Unknown] cyclobenzaprine 10 mg tablet 10 mg PO TID PRN muscle spasm #20 tabs 12/17/21 [Rx Last Taken Unknown] Allergy/AdvReac Type Severity Reaction Status Date / Time acetaminophen [From Vicodin] AdvReac Mild tremors Verified 12/17/21 14:10 hydrocodone [From Vicodin] AdvReac Mild tremors Verified 12/17/21 14:10 Family History Mother Cardiac murmur Diabetes Grandmother COPD (chronic obstructive pulmonary disease) Surgical History History of cholecystectomy (~02/2019) Social History Smoking Status: Current every day smoker tobacco type: cigarettes ROS ROS ED Constitutional Constitutional ED: Denies chills or fever(s) Eyes Eyes: Denies change in vision ENT ENT ED: Denies rhinorrhea or sore throat Cardiovascular Cardiovascular: Denies chest pain Respiratory/Chest Respiratory/Chest: Reports cough and dyspnea on exertion; Denies dyspnea Gastrointestinal Gastrointestinal: Denies abdominal pain, diarrhea, nausea or vomiting Genitourinary Genitourinary ED: Denies dysuria or hematuria Musculoskeletal Musculoskeletal: Reports back pain and other Details: left calf pain ; Denies arthralgias or neck pain Integumentary Denies rash Neurologic Neurologic: Denies headache(s), paresthesias or weakness Psychiatric Psychiatric: Denies anxiety or depression Hematologic/Lymphatic Hematologic/Lymphatic: Denies easy bleeding or easy bruising EXAM Physical Exam Const Vital Signs: 12/17/21 14:11 12/17/21 14:44 12/17/21 15:34 Temperature 96.6 F L Temperature Source Temporal Pulse Rate 128 H 116 H Respiratory Rate 16 18 Blood Pressure 93/73 101/61 Blood Pressure Mean 79 74 Pulse Ox 99 95 Oxygen Delivery Method Room Air Room Air 12/17/21 16:51 12/17/21 17:48 Temperature Temperature Source Pulse Rate 119 H 107 H Respiratory Rate 28 H 21 H Blood Pressure 102/64 106/67 Blood Pressure Mean 76 80 Pulse Ox 95 95 Oxygen Delivery Method Room Air Room Air Positive well nourished and well developed General Appearance ED: well developed and NAD HEENT Reports moist mucous membranes Negative for trauma Eyes PERRL and EOMs intact bilaterally Neck supple and no JVD Chest Wall inspection of chest normal and palpation of chest normal Resp normal respiratory effort and clear to auscultation bilaterally Auscultation: Negative for rales, rhonchi or wheezes Cardio regular rhythm and no murmurs Rate: tachycardic GI normal to inspection, nondistended, normoactive bowel sounds and non-tender Back/Spine no CVA tenderness Thoracic Spine / Upper Back: paraspinal muscle tenderness bilateral; Negative for thoracic spinal tenderness Lumbar Spine / Lower Back: Negative for lumbar spinal tenderness Extremity Extremity Narrative: Tenderness to palpation diffusely of the left calf. Compartments are soft. 2+ bilateral PT pulses. General Extremety ED: Yes tenderness; Negative for edema General Extremity: Negative for edema Neuro oriented x3 and no sensory deficits noted Sensorium / Orientation: alert Motor Exam: strength 5/5 throughout; Negative for general weakness Psych mental status grossly normal Skin no rashes or lesions noted and no wounds MDM MDM MDM Narrative Medical decision making narrative: Patient is evaluated for cramping in his left calf as well as back pain. He notes he feels short of breath. Patient's vital signs are significant for tachycardia however patient's been tachycardic on prior visits as well. CBC shows mild leukocytosis 11.7 which is nonspecific. His BMP is significant for hyperglycemia with a glucose of 383 with a normal anion gap. He has a pseudohyponatremia with a sodium of 129 and his kidney function is normal with a GFR of 93. Magnesium is 2.0, high since he troponin is 4 and CPK is 75. His compartments are soft. Patient's lactate is 1.0. CTA of the chest obtained to rule out pulmonary emboli as a cause of his symptoms is negative. No signs of pulmonary emboli, arterial dissection or other acute process. Venous duplex obtained is negative. His back pain and calf pain are highly reproducible with palpation. I suspect they are more muscle skeletal in nature. Patient is given IV fluids, morphine and Toradol in the ER. On repeat evaluation he is more comfortable and his tachycardia has improved as well. Repeat blood sugar after a liter of fluid is 258. Patient is given 6 units of insulin in the emergency room. He will take his diabetic medications when he gets home. At this time I do not suspect ACS, myocarditis, pulmonary emboli or aortic dissection as a cause of his symptoms. No signs of infection. I believe he stable for outpatient follow-up. Patient is given return precautions. He is discharged home in stable condition. Lab Data Attestation: I reviewed the patient's lab results. Labs: Laboratory Results - last 24 hr 12/17/21 12/17/21 12/17/21 14:25 14:25 14:25 WBC 11.7 H RBC 5.10 Hgb 16.4 Hct 45.8 MCV 89.8 MCH 32.2 H MCHC 35.8 RDW Std Deviation 41.3 RDW Coeff of George 12.6 Plt Count 181 MPV 10.6 Immature Gran % (Auto) 2.000 H Neut % (Auto) 83.6 H Lymph % (Auto) 6.3 L Maries % (Auto) 5.8 Eos % (Auto) 1.3 Baso % (Auto) 1.0 Absolute Neuts (auto) 9.8 H Absolute Lymphs (auto) 0.73 L Nucleated RBC % 0 Sodium 129 L Potassium 4.2 Chloride 95 L Carbon Dioxide 22.0 Anion Gap 12 BUN 11 Creatinine 0.91 Estim Creat Clear Calc 116.07 Est GFR (MDRD) Af Amer 113 Est GFR (MDRD) Non-Af 93 BUN/Creatinine Ratio 12.0 Glucose 383 H Lactic Acid Calcium 10.0 Magnesium 2.0 Total Creatine Kinase 75 Troponin I High Sens 4 Lipase 99 POC Glucose 12/17/21 12/17/21 15:35 17:22 WBC RBC Hgb Hct MCV MCH MCHC RDW Std Deviation RDW Coeff of George Plt Count MPV Immature Gran % (Auto) Neut % (Auto) Lymph % (Auto) Maries % (Auto) Eos % (Auto) Baso % (Auto) Absolute Neuts (auto) Absolute Lymphs (auto) Nucleated RBC % Sodium Potassium Chloride Carbon Dioxide Anion Gap BUN Creatinine Estim Creat Clear Calc Est GFR (MDRD) Af Amer Est GFR (MDRD) Non-Af BUN/Creatinine Ratio Glucose Lactic Acid 1.0 Calcium Magnesium Total Creatine Kinase Troponin I High Sens Lipase POC Glucose 258 H Radiography Chest X-Ray - ED: 1 View, Read by ED Physician, Read by Radiologist, No Acute Disease and - (Hyperinflated) Diagnostic Testing: Clinical Impression(s) from Imaging Studies Chest X-Ray 12/17/21 14:50 IMPRESSION: Hyperinflation. Minimal increased linear markings at the left lung base suggestive of linear atelectasis. Electronically Signed: Miquel Gonzalez MD at 15:22 EDT , Venous Doppler Study 12/17/21 15:24 Interpretation Summary There is no evidence of left lower extremity deep vein thrombosis. Left great saphenous vein appears patent and compressible segmentally. Ordering Physician: Thuy Escobar Referring Physician: Vineet Ryan Performed By: Bing Barajas, JOANA, RVT Chest CTA 12/17/21 16:00 IMPRESSION: No demonstrated pulmonary embolism or arterial dissection. Electronically Signed: Zeb Munoz MD at 16:43 EDT Reading Location ID and State: [address] [place] [address] , Service support , Rhythm Strip Rhythm Strip: Sinus Tach Rate: 130 Ectopy: None EKG Initial EKG: Attestation: I personally reviewed and interpreted this EKG as follows: Interpretation: Sinus Tachycardia Comments: Sinus tachycardia rate of 130 Right axis deviation Normal intervals Pulmonary disease pattern Nonspecific ST segment changes in the inferior leads Compared to prior EKG patient has these nonspecific changes and inferior leads and right axis Discharge Plan Triage Chief Complaint: Chest Pain Other Complaint: Back ED Provider: Thuy Escobar Dx/Rx/DC Orders Clinical Impression: Back muscle spasm, Calf cramp, Tachycardia, Hyperglycemia due to diabetes mellitus Instructions: ED Diabetic Hyperglycemia, ED Muscle Spasm Prescriptions: New cyclobenzaprine 10 mg tablet 10 mg PO TID PRN (Reason: muscle spasm) Qty: 20 0RF No Action atorvastatin [Lipitor] 20 mg tablet 20 mg PO DAILY lisinopril [Zestril] 5 mg tablet 5 mg PO DAILY Jardiance 25 mg tablet 25 mg PO DAILY Qty: 90 1RF metformin 1,000 mg tablet 1,000 mg PO BID Qty: 180 1RF Primary Care Provider: Lit Ryan Referrals: Lit Ryan MD [Primary Care Provider] - Activity Restrictions/Additional Instructions: You do not have a blood clot in your leg, lungs or signs of stress on your heart today. Your blood sugar was elevated and you were given 6 units of insulin in addition to a liter of IV fluid. I suspect the pain in your legs and your back is from your muscles. Drink lots of fluids and you been prescribed a muscle relaxer to help with the pain. Continue take Tylenol. Return the emergency room if you develop any worsening symptoms. Disposition Disposition: Home, Self Care
[2021-12-17 15:34] VITALS: BP 101/61; PULSE 116; RESP 18
[2021-12-17] MEDS: Morphine 4 MG/ML Syringe IV (15:36)
[2021-12-17] MEDS: 0.9% Normal Saline 1,000 ML 999 ML IV (15:37)
[2021-12-17 15:57] LABS: CPK Total, Creatine Kinase 75 U/L (39-308); Lipase 99 U/L (73-393)
--- NOTE | 2021-12-17 16:00 | CT_ITS ---
EXAM: CT ANGIOGRAPHY CHEST WITHOUT AND WITH INTRAVENOUS CONTRAST CLINICAL INDICATION: SHUKLA, suspect PE TECHNIQUE: Helically acquired angiography images were obtained of the chest without and with intravenous contrast. This CT exam was performed using one or more of the following dose reduction techniques: automated exposure control, adjustment of the mA and/or kV according to patient size, and/or use of iterative reconstruction technique. This report was created using [employer] report generation technology. MIP reconstructed images were created and reviewed. CONTRAST: IV 100mL [id number] RADIATION DOSE: CTDIvol = 10.83 mGy, DLP = 468.96 mGy-cm COMPARISON: None. FINDINGS: PULMONARY ARTERIES: No demonstrated pulmonary embolism or arterial dissection. AORTA: Unremarkable. Normal in caliber. No evidence of dissection. GREAT VESSELS OF AORTIC ARCH: Unremarkable. Normal in caliber. No evidence of dissection. LUNGS AND PLEURAL SPACES: Unremarkable. No mass. No consolidation or edema. No pleural effusion or thickening. No pneumothorax. HEART: Unremarkable. Heart size is normal. No pericardial effusion. No signs of right heart strain, ratio of right ventricle to left ventricle measures less than 1. MEDIASTINUM: Unremarkable. No mediastinal or hilar adenopathy. Esophagus is unremarkable. No hiatal hernia. THYROID: Unremarkable. No thyroid lesions. BONES/JOINTS: There are degenerative changes of the shoulders. There are multi-level degenerative changes of the thoracic spine. No suspicious lytic or blastic abnormality. CT/CTA Chest W/WO Contrast IMPRESSION: No demonstrated pulmonary embolism or arterial dissection. Electronically Signed: Zeb Munoz MD at 16:43 EDT ,
[2021-12-17 16:51] VITALS: BP 102/64; PULSE 119; RESP 28; O2SAT 95
[2021-12-17] MEDS: Ketorolac 15 MG/ML Vial IV (17:00)
[2021-12-17 17:41] LABS: Bedside Glucose 258 mg/dL (74-106)
[2021-12-17] MEDS: Insulin Lispro 100 UNIT/ML INSULN.PEN 6 UNIT SC (17:47)
[2021-12-17 17:48] VITALS: BP 106/67; PULSE 107; RESP 21; O2SAT 95
[2021-12-17 18:14] VITALS: RESP 18
== END 2021-12-17 18:14 | disposition home or self-care (01) ==
PROVIDERS: Emergency Provider Emergency Medicine; PCP Family Medicine; Visit Provider Emergency Medicine
DX: M62.830 Muscle spasm of back (principal); E11.65 Type 2 diabetes mellitus with hyperglycemia; M62.831 Muscle spasm of calf; R00.0 Tachycardia, unspecified; I10 Essential (primary) hypertension; E78.5 Hyperlipidemia, unspecified; F17.210 Nicotine dependence, cigarettes, uncomplicated; Z79.84 Long term (current) use of oral hypoglycemic drugs; Z79.899 Other long term (current) drug therapy
CPT/HCPCS: 71045; 71275; 80048; 82550; 82962; 83605; 83690; 83735; 84484; 85025; 93005; 93971; 96361; 96374; 96375; 99284; J7030; Q9967; A4216

== ENCOUNTER → 2022-07-11 | Outpatient (CLI) | payer MEDICAID, SELFPAY ==
[2022-07-11 11:33] LABS: Hemoglobin A1c 6.8 % (3.8-5.6)
== END | disposition home or self-care (01) ==
LOC: LAB 10:14
PROVIDERS: PCP Family Medicine; Referring Provider Nurse Practitioner Family; Visit Provider Nurse Practitioner Family
DX: E11.65 Type 2 diabetes mellitus with hyperglycemia (principal)
CPT/HCPCS: 36415; 83036

== ENCOUNTER 2023-03-02 16:33 | Emergency (ER) | payer MEDICAID, SELFPAY ==
[2023-03-02 16:34] VITALS: BP 123/83; PULSE 93; RESP 15; TEMP 36.2; O2SAT 98; BMI 28.5
--- NOTE | 2023-03-02 16:37 | RAD_ITS ---
STUDY: X-RAY - LEFT SHOULDER REASON FOR EXAM: Male, 52 years old. LEFT SHOULDER PAIN X AWHILE -- NKI TECHNIQUE: 5 view(s) of the shoulder. COMPARISON: None. FINDINGS: Mildly narrowed glenohumeral articulation. Normal acromioclavicular joint. Normal acromion. Normal humeral head and visualized proximal humerus. The soft tissue structures are unremarkable. Normal visualized pulmonary apex. RAD/Shoulder min 2 Views IMPRESSION: Mild degenerative change. No acute fracture or dislocation Electronically Signed: Porfirio Ramirez MD at 17:05 EST ,
--- OUTSIDE RECORDS SUMMARY | 2023-03-02 18:49 | XMS RPT_ITS | CCD ---
Author Name Unknown Address [address] [place] [address] [address] [place] [address] Organization [facility] Care Team Providers Care Injection Molding Engineer Name Role Phone Lars Ryan MD Primary Care Provider LARS RYAN Primary Care Unavailab AlasLOGMILENA SCANLON Referring Unavailable PODLOGCAPO, MILENA Attending Unavailable LARS RYAN Primary Care Unavailab LARS Haynes Primary Care Unavailab dayron THORPELOGMILENA SCANLON Attending Unavailable Allergies Allergy Classification Reported Allergen(s) Allergy Type Date of Onset Reaction(s) Facility (8 sources) Acetaminophen / HYDROcodone; Translations: [HYDROCODONE-ACETA MINOPHEN] Drug Allergy 11-12-2016 Intolerance [facility] Medications Current Medications Medication Drug Class(es) Dates Sig (Normalized) Sig (Original) atorvastatin 40 mg oral tablet (9 sources) HMG-CoA Reductase Inhibitor Start: 09-29-2022 End: 12-28-2022 take 1 tablet by mouth once daily at bedtime for hyperlipidemia atorvastatin (LIPITOR) 40 mg tablet Indications: Uncontrolled type 2 diabetes mellitus with hyperglycemia (HCC) Take 1 tablet by mouth daily at bedtime. For cholesterol. 30 tablet 2 09/29/2022 12/28/2022 Active Completed/Discontinued Medications Medication Drug Class(es) Dates Sig (Normalized) Sig (Original) aspirin 81 mg delayed release oral tablet (7 sources) Platelet Aggregation Inhibitor, Nonsteroidal Anti-inflammatory Drug take 1 tablet by mouth once daily aspirin, enteric coated (ASPIRIN, ENTERIC COATED) 81 mg EC tablet Take 81 mg by mouth once daily. 0 Active Problems Problem Classification Problem Date Documented Da te Episodic/Chronic Diabetes mellitus with complications (10 sources) Type II diabetes mellitus uncontrolled; Translations: [Type 2 diabetes mellitus with hyperglycemia] Chronic Diabetes mellitus without complication (2 sources) Type 2 diabetes mellitus without complication; Translations: [Type 2 diabetes mellitus without complications] Onset: 09-28-2022 09-28-2022 Chronic Disorders of lipid metabolism (5 sources) Hyperlipidemia; Translations: [Hyperlipidemia, unspecified] Onset: 09-28-2022 Chronic Nutritional deficiencies (1 source) Vitamin D deficiency; Translations: [Vitamin D deficiency, unspecified] 09-29-2022 Chronic Other nutritional; endocrine; and metabolic disorders (7 sources) Obese class I; Translations: [Obesity, unspecified] 01-05-2017 Chronic Other nutritional; endocrine; and metabolic disorders (1 source) History of nutritional deficiency; Translations: [Personal history of other endocrine, nutritional and metabolic disease] 09-28-2022 Episodic Other nutritional; endocrine; and metabolic disorders (1 source) Personal history of other endocrine, nutritional and metabolic disease; Translations: [History of vitamin D deficiency] Onset: 09-28-2022 Episodic Other screening for suspected conditions (not mental disorders or infectious disease) (5 sources) Patient encounter status; Translations: [Encounter for screening for malignant neoplasm of colon] Onset: 09-28-2022 Episodic Residual codes; unclassified (8 sources) Tobacco use and exposure - finding; Translations: [Tobacco use] Episodic Results Test Name Value Interpretation Reference Range Facil ity Vital Signs Date Time Vital Sign Value Performing Clinician Nick campbell 09-28-2022 07:18-0400 Body weight 105.96 kg Milena Podlogar ASSISTANT ACCOUNT EXECUTIVE.MARY Work Phone: [facility] 09-28-2022 07:18-0400 Diastolic blood pressure 76 mm[Hg] Milena Podlogar ASSISTANT ACCOUNT EXECUTIVE.MARY Work Phone: [facility] 09-28-2022 07:18-0400 Heart rate 89 /min Milena Podlogar ASSISTANT ACCOUNT EXECUTIVE.MARY Work Phone: [facility] 09-28-2022 07:18-0400 Respiratory rate 16 /min Milena Podlogar ASSISTANT ACCOUNT EXECUTIVE.MARY Work Phone: [facility] 09-28-2022 07:18-0400 SaO2% (BldA) [Mass fraction] 94 % Milena Podlogar ASSISTANT ACCOUNT EXECUTIVE.MARY Work Phone: [facility] 09-28-2022 07:18-0400 Systolic blood pressure 112 mm[Hg] Milena Podlogar ASSISTANT ACCOUNT EXECUTIVE.NETWORK SUPPORT ENGINEER Work Phone: [facility] 01-30-2022 13:15-0500 Body weight 84.64 kg Milena Podlogar ASSISTANT ACCOUNT EXECUTIVE.NETWORK SUPPORT ENGINEER Work Phone: [facility] 01-30-2022 13:15-0500 Diastolic blood pressure 72 mm[Hg] Milena Podlogar ASSISTANT ACCOUNT EXECUTIVE.NETWORK SUPPORT ENGINEER Work Phone: [facility] 01-30-2022 13:15-0500 Heart rate 106 /min Milena Podlogar ASSISTANT ACCOUNT EXECUTIVE.NETWORK SUPPORT ENGINEER Work Phone: [facility] 01-30-2022 13:15-0500 Respiratory rate 16 /min Milena Podlogar ASSISTANT ACCOUNT EXECUTIVE.NETWORK SUPPORT ENGINEER Work Phone: [facility] 01-30-2022 13:15-0500 SaO2% (BldA) [Mass fraction] 98 % Milena Podlogar ASSISTANT ACCOUNT EXECUTIVE.NETWORK SUPPORT ENGINEER Work Phone: [facility] 01-30-2022 13:15-0500 Systolic blood pressure 100 mm[Hg] Milena Podlogar ASSISTANT ACCOUNT EXECUTIVE.NETWORK SUPPORT ENGINEER Work Phone: [facility] 10-31-2021 10:21-0400 Body weight 97.25 kg Milena Podlogar ASSISTANT ACCOUNT EXECUTIVE.NETWORK SUPPORT ENGINEER Work Phone: [facility] 10-31-2021 10:21-0400 Diastolic blood pressure 78 mm[Hg] Milena Podlogar ASSISTANT ACCOUNT EXECUTIVE.NETWORK SUPPORT ENGINEER Work Phone: [facility] 10-31-2021 10:21-0400 Heart rate 99 /min Milena Podlogar ASSISTANT ACCOUNT EXECUTIVE.NETWORK SUPPORT ENGINEER Work Phone: [facility] 10-31-2021 10:21-0400 Respiratory rate 18 /min Milena Podlogar ASSISTANT ACCOUNT EXECUTIVE.NETWORK SUPPORT ENGINEER Work Phone: [facility] 10-31-2021 10:21-0400 SaO2% (BldA) [Mass fraction] 98 % Milena Podlogar ASSISTANT ACCOUNT EXECUTIVE.NETWORK SUPPORT ENGINEER Work Phone: [facility] 10-31-2021 10:21-0400 Systolic blood pressure 114 mm[Hg] Milena Podlogar ASSISTANT ACCOUNT EXECUTIVE.MARY Work Phone: [facility] Encounters Encounter Date Encounter Type Care Provider Facility Start: 11-12-2022 Telephone encounter Lit Ryan MD Work Phone: Neurology Procedures Date Procedure Procedure Detail Performing Clinician Start: 10-31-2021 Hemoglobin A1c/Hemoglobin.total in Blood Milena Podlogar ASSISTANT ACCOUNT EXECUTIVE.NETWORK SUPPORT ENGINEER Work Phone: Start: 11-09-2019 Adult depression screening assessment Milena Rasmussen ASSISTANT ACCOUNT EXECUTIVE.NETWORK SUPPORT ENGINEER Work Phone: Plan of Treatment Date Care Activity Detail Author Start: 11-30-2027 Urine microalbumin profile [facility] Start: 09-29-2023 ANNUAL PCP TEAM TIP BANDER NORA DISEASE VISIT ANNUAL PCP TEAM CHRONIC DISEASE VISIT [facility] Start: 09-29-2023 Hepatitis B screening URINE AL BUMIN:CREATININE RATIO [facility] Start: 09-29-2023 Hepatitis B surface antibody level LDL CHOLESTEROL [facility] Start: 01-30-2023 3 comp foot exam completed DIABETIC FOOT EXAM [facility] Start: 01-30-2023 ANNUAL PCP TEAM TIP BANDER NORA DISEASE VISIT ANNUAL PCP TEAM CHRONIC DISEASE VISIT [facility] Start: 01-30-2023 COVID-19 VACCINE (#1) COVID-19 VACCI NE (#1) [facility] Immunizations Immunization Date Immunization Notes Care Provider Fa cility 11-29-2017 tetanus toxoid, redu akila diphtheria toxoid, and acellular pertussis vaccine, adsorbed Milena Podlogar ASSISTANT ACCOUNT EXECUTIVE.NETWORK SUPPORT ENGINEER Work Phone: [facility] 11-29-2017 influenza virus vaccine, unspecified formulation Lars Ryan MD Work Phone: [facility] 01-05-2017 pneumococcal polysaccharide vaccine, 23 valent Milena Podlogar ASSISTANT ACCOUNT EXECUTIVE.NETWORK SUPPORT ENGINEER Work Phone: [facility] 10-29-2004 diphtheria and tetan us toxoids, adsorbed for pediatric use Milena Podlogar ASSISTANT ACCOUNT EXECUTIVE.NETWORK SUPPORT ENGINEER Work Phone: [facility] Work Phone: Payers Date Payer Category Payer Medicaid [id number] 2016 Medicaid [id number] 2016 Medicaid [id number] Social History Date Type Detail Facility Start: 10-31-2021 Tobacco smoking stat us NHIS Smokes tobacco daily [facility] History of tobacco use Cigarette Smoker [facility] Start: 10-31-2021 End: 09-28-2022 Cigarettes smoked current (pack per day) - Reported 1 [facility] Start: 10-31-2021 Tobacco use and exposure Forme r smokeless tobacco user [facility] End: 01-06-1992 History of tobacco use User of smokeless tobacco [facility] Start: 10-31-2021 Alcohol intake Current drinke r of alcohol (finding) [facility] Start: 10-29-2021 End: 01-29-2022 History SDOH Alcohol Frequency 1 [facility] Start: 10-29-2021 End: 01-29-2022 History SDOH Alcohol Std Drinks 0 [facility] Start: 01-05-2017 History SDOH Alcohol Comment rarely [facility] Start: 10-29-2021 End: 01-29-2022 History SDOH Social Connections Phone 5 [facility] Start: 10-29-2021 End: 01-29-2022 History SDOH Social Connections Get Together 2 [facility] Start: 10-29-2021 End: 01-29-2022 History SDOH Social Connections Living 3 [facility] Start: 10-29-2021 History SDOH Physica l Activity DPW 7 [facility] Start: 11-09-2019 Education 14 [facility] Start: 10-31-2021 Tobacco Comment chewed for 1 year [facility] Start: 1970 Sex Assigned At Male [facility] Start: 10-12-2021 End: 10-22-2021 Exposure to SARS-CoV-2 (event) Not sure [facility] Start: 01-28-2022 End: 09-28-2022 Social connection and isolation panel [facility] Do you belong to any clubs or organizations such as hindu groups, unions, fraternal or athletic groups, or school groups? No [facility] Are you now , , , , never or living with a partner? [facility] How often to you hav e a drink containing alcohol? Never [facility] How many standard dr inks containing alcohol do you have on a typical day? Patient does not drink [facility] Do you feel stress - tense, restless, nervous, or anxious, or unable to sleep at night because your mind is troubled all the time - these days [OSQ] Not at all [facility] (I/We) worried wheth er (my/our) food would run out before (I/we) got money to buy more. DK or Refused [facility] Start: 11-09-2019 Gender identity Identifies as male gender (finding) [facility] Start: 11-09-2019 Sexual orientation Heterosexual (rah moraes) [facility] Medical Equipment Procedure Code Equipment Code Equipment Origin al Text Equipment Identifier Dates Start: 10-27-2019 End: 11-12-2022 Clinical Notes 10-31-2021 to 11-12-2022 Telephone Encounter - Lars Ryan MD - 11/12/2022 4:34 PM EDTTelephone Encounter - Enid Martinez LPN - 11/12/2022 4:23 PM EDTPatient InstructionsPatient Instructions Note Date & Type Note Facility 11-12-2022 Miscellaneous Notes Formattin g of this note might be different from the original. Freestyle lite removed as requested. Rec'd denial from [facility]. The freestyle lite. They will cover one touch ultra blue,one touch verio and true metrix. Called pt to review. He called Dr Tomas office and she sent to pharmacy a covered meter and supplies for a one touch. Nothing else is needed here. Could remove from med list the rx for freestyle lites from 11/11/22 and 10/27/2019 freestyle freedom lite so we do not try to reorder. Received fax from pharmacy insurance wont cover Freestyle but will cover onetouch ulta. [place] completed through [employer] Prior Authorization has been completed online at [employer] for freestyle, will await response. [id number] Please keep encounter open until final decision has been received and documented from insurance company. Sammie Romero MA documented in this encounter [facility] 11-11-2022 Miscellaneous Notes Formattin g of this note is different from the original. Patient phones requesting refills as follows: Requested Prescriptions Pending Prescriptions Disp Refills FREESTYLE LITE STRIPS test strip 200 Strip 3 Sig: test blood 3 (THREE) times per day MONIKA 09/28/22 NOV 03/29/23 Please review and advise. Perfecto Sauer LPN documented in this encounter [facility] 09-29-2022 Miscellaneous Notes Formattin g of this note might be different from the original. Pt called and is notified of providers results and instructions. Pt voices understanding. Ghazal Person RN LDL ( bad cholesterol) elevated recommend increasing atorvastatin to 40 mg and recheck labs in 3 months. Vitamin D level is low. Will send in prescription for vitamin D 83203 units one tablet WEEKLY for 12 weeks then recheck one week after last dose.The rest of his blood work and urine are within acceptable ranges. Milena Rasmussen APRN.MARY documented in this encounter [facility] 09-28-2022 Note HNO ID: [id number] Author: Milena Rasmussen APRN.CNP Service: ? Author Type: Nurse Practitioner Type: Progress Notes Filed: 09/28/2022 7:39 AM Note Text: 09/28/2022 Patient presents with: F/U 6 months SUBJECTIVE: This is a 52 year old that is here today for Above Complaints. Since last office visit has been in good health without ER visits or hospitalizations. 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 Franco governor assembler hydraulic. Last visit on 07/13/2022. Last A1c on 07/11/2022 and was 6.8%. Has follow-up which he believes is in December. 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 Patient is watching diet: trying to. Patient denies myalgias: Yes. Patient denies gi upset: Yes Still smoking a pack a day. No ready to quit as of yet PAST MEDICAL HISTORY Diagnosis Date ADHD childhood Ankle fracture bilateral Diabetes mellitus type II, uncontrolled Dr. Franco Leg fracture, left left tib/fib Obesity (BMI 30.0-34.9) Snoring Tobacco use ALLERGIES [place] [Hydrocodone-Acetaminophen] MEDICATIONS Current Outpatient Medications Medication Sig insulin lispro protamin/lispro (HUMALOG MIX 50-50 KWIKPEN SUBCUTANEOUS) Inject 15 mL subcutaneously three times daily. lisinopril (ZESTRIL, PRINIVIL) 5 mg tablet Take 1 tablet by mouth once daily. atorvastatin (LIPITOR) 20 mg tablet Take 1 tablet by mouth daily at bedtime. For cholesterol. multivit-mins/iron/folic/lycop (CENTRUM MEN ORAL) Take by mouth once daily. Tadalafil 5 mg tablet Take two tablets 30 minutes prior to sexual activity FREESTYLE LITE STRIPS test strip test blood 3 (THREE) times per day aspirin, enteric coated (ASPIRIN, ENTERIC COATED) 81 mg EC tablet Take 81 mg by mouth once daily. UNILET LANCET 28 gauge test blood 3 (THREE) times per day FREESTYLE FREEDOM LITE monitoring kit Test blood 3 (THREE) times per day Insulin [place], Disposable, (PEN NEEDLE) 29 gauge x 1/2 Use one needle per dose. 4 per day No current facility-administered medications for this visit. Medications and allergies reviewed by this provider. SOCIAL HISTORY Social History Tobacco Use Smoking status: Every Day Packs/day: 1.00 Years: 31.00 Total pack years: 31.00 Types: Cigarettes Smokeless tobacco: Former Quit date: 01/06/1992 Tobacco comments: chewed for 1 year Substance Use Topics Alcohol use: Yes Comment: rarely Drug use: No Comment: history of marijuana use in 2002 REVIEW OF SYSTEMS GENERAL: No weight loss, malaise or fevers RESPIRATORY: Negative for cough, hemoptysis, wheezing, COPD, dyspnea or shortness of breath CARDIOVASCULAR: Negative for chest pain, leg swelling, hypertension, CHF or palpitations All other reviewed and negative other than HPI. OBJECTIVE: BP 112/76 Pulse 89 Resp 16 Wt 106 kg (233 lb 9.6 oz) SpO2 94% BMI 29.99 kg/m? . Vital signs reviewed by this provider. APPEARANCE Well appearing, alert, in no acute distress, well-hydrated, well nourished. EYES conjunctiva and sclera normal. HEART RRR with normal S1 and S2, no murmurs, no gallops, no JVD appreciated LUNG clear to auscultation. No wheezes, rhonchi or rales EXTREMITIES Extremities normal, No deformities, No skin discoloration, and No edema SKIN Skin color, texture, turgor normal, no suspicious rashes or lesions to exposed skin DILATED RETINAL EXAM Never done COLORECTAL CANCER SCREENING Never done LUNG CANCER SCREENING Never done DEPRESSION ASSESSMENT due on 02/22/2022 HBA1C due on 04/30/2022 LDL CHOLESTEROL due on 07/28/2022 URINE ALBUMIN:CREATININE RATIO due on 08/11/2022 HEPATITIS B(1 of 3 - 3-dose series) due on 10/31/2022 SHINGRIX VACCINE(1 of 2) due on 10/31/2022 PNEUMOCOCCAL(2 - PCV) due on 10/31/2022 COVID-19 VACCINE(1) due on 01/30/2023 INFLUENZA(1) due on 10/23/2022 DIABETIC FOOT EXAM due on 01/30/2023 ANNUAL PCP TEAM CHRONIC DISEASE VISIT due on 01/30/2023 DTAP,TDAP,TD(3 - Td or Tdap) due on 11/30/2027 HEPATITIS C SCREENING Completed HIV SCREENING Completed ASSESSMENT/PLAN: 1. Controlled type 2 diabetes mellitus without complication, without long-term current use of insulin (HCC) - ICD9: 250.00, ICD10: E11.9 (primary diagnosis) - Controlled - Continue current medications - Counseled on healthy diet and regular exercise - Smoking cessation encouraged; discussed risks to health and quitting strategies. Patient is not ready to quit - Discussed diabetic education issues of diabetes complications and monitoring required and hypoglycemic/hyperglycemic symptoms - Follow up in 6 months, sooner should any other issues arise. - COMP METABOLIC PANEL - LIPID PANEL BASIC - VITAMIN D 25 HYDROXY - TSH BLD - ALBUMIN/CREAT RATIO RND UR 2. History of vitamin D deficiency - ICD9: V12.1, ICD10: Z86.39 - VITAMIN D 25 HYDROXY 3. Encounter for screening for lung (more content not included)... [facility] 09-28-2022 Instructions Milena Rasmussen APRN.MARY - 09/28/2022 7:35 AM EDT Images from the original note were not included. To schedule a diabetic eye exam at the [facility] [place], please call: [phone] Online resources to learn more [email or web address] /health/[email or web address] -retinopathy https://www.diabetes.org/diabe kostas/complications/eye-complica tions https://www.aoa.org/healthy-ey es/lcj-jvs-ktyaei-conditions/d iabetic-retinopathy?sso=y https://www.OpenDoors.su.StyleChat by [employer] References 1. National Diabetes Statistics Report 2020: Estimates of Diabetes and Its [place] in the [facility]. Center for Disease Control and Prevention; 2020. Available at: https://www.cdc.gov/diabetes/p dfs/data/statistics/national-d irepjua-lyhqdsdakn-ylqwga.pdf 2. Niurka Bauer, Zakia Zhu, Samson Garcia, Mariela Kahn, Thalia Will, Usman Puri, Mo Medina, Blaise Echevarria; Diabetic Retinopathy: A Position Statement by the [place] [employer]. Diabetes Care 22 April 2016; 40 (3): 412-418 documented in this encounter [facility] 09-28-2022 History of Presen t illness Narrative 09/28/2022 Patient presents with: F/U 6 months SUBJECTIVE: This is a 52 year old that is here today for Above Complaints. Since last office visit has been in good health without ER visits or hospitalizations. 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 Franco governor assembler [employer]. Last visit on 07/13/2022. Last A1c on 07/11/2022 and was 6.8%. Has follow-up which he believes is in December. 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 Patient is watching diet: trying to. Patient denies myalgias: Yes. Patient denies gi upset: Yes Still smoking a pack a day. No ready to quit as of yet PAST MEDICAL HISTORY Diagnosis Date ADHD childhood Ankle fracture bilateral Diabetes mellitus type II, uncontrolled Dr. Franco Leg fracture, left left tib/fib Obesity (BMI 30.0-34.9) Snoring Tobacco use ALLERGIES [place] [Hydrocodone-Acetaminophen] MEDICATIONS Current Outpatient Medications Medication Sig insulin lispro protamin/lispro (HUMALOG MIX 50-50 KWIKPEN SUBCUTANEOUS) Inject 15 mL subcutaneously three times daily. lisinopril (ZESTRIL, PRINIVIL) 5 mg tablet Take 1 tablet by mouth once daily. atorvastatin (LIPITOR) 20 mg tablet Take 1 tablet by mouth daily at bedtime. For cholesterol. multivit-mins/iron/folic/lycop (CENTRUM MEN ORAL) Take by mouth once daily. Tadalafil 5 mg tablet Take two tablets 30 minutes prior to sexual activity FREESTYLE LITE STRIPS test strip test blood 3 (THREE) times per day aspirin, enteric coated (ASPIRIN, ENTERIC COATED) 81 mg EC tablet Take 81 mg by mouth once daily. UNILET LANCET 28 gauge test blood 3 (THREE) times per day FREESTYLE FREEDOM LITE monitoring kit Test blood 3 (THREE) times per day Insulin [place], Disposable, (PEN NEEDLE) 29 gauge x 1/2 Use one needle per dose. 4 per day No current facility-administered medications for this visit. Medications and allergies reviewed by this provider. SOCIAL HISTORY Social History Tobacco Use Smoking status: Every Day Packs/day: 1.00 Years: 31.00 Total pack years: 31.00 Types: Cigarettes Smokeless tobacco: Former Quit date: 01/06/1992 Tobacco comments: chewed for 1 year Substance Use Topics Alcohol use: Yes Comment: rarely Drug use: No Comment: history of marijuana use in 2002 REVIEW OF SYSTEMS GENERAL: No weight loss, malaise or fevers RESPIRATORY: Negative for cough, hemoptysis, wheezing, COPD, dyspnea or shortness of breath CARDIOVASCULAR: Negative for chest pain, leg swelling, hypertension, CHF or palpitations All other reviewed and negative other than HPI. OBJECTIVE: BP 112/76 Pulse 89 Resp 16 Wt 106 kg (233 lb 9.6 oz) SpO2 94% BMI 29.99 kg/m . Vital signs reviewed by this provider. APPEARANCE Well appearing, alert, in no acute distress, well-hydrated, well nourished. EYES conjunctiva and sclera normal. HEART RRR with normal S1 and S2, no murmurs, no gallops, no JVD appreciated LUNG clear to auscultation. No wheezes, rhonchi or rales EXTREMITIES Extremities normal, No deformities, No skin discoloration, and No edema SKIN Skin color, texture, turgor normal, no suspicious rashes or lesions to exposed skin DILATED RETINAL EXAM Never done COLORECTAL CANCER SCREENING Never done LUNG CANCER SCREENING Never done DEPRESSION ASSESSMENT due on 02/22/2022 HBA1C due on 04/30/2022 LDL CHOLESTEROL due on 07/28/2022 URINE ALBUMIN:CREATININE RATIO due on 08/11/2022 HEPATITIS B(1 of 3 - 3-dose series) due on 10/31/2022 SHINGRIX VACCINE(1 of 2) due on 10/31/2022 PNEUMOCOCCAL(2 - PCV) due on 10/31/2022 COVID-19 VACCINE(1) due on 01/30/2023 INFLUENZA(1) due on 10/23/2022 DIABETIC FOOT EXAM due on 01/30/2023 ANNUAL PCP TEAM CHRONIC DISEASE VISIT due on 01/30/2023 DTAP,TDAP,TD(3 - Td or Tdap) due on 11/30/2027 HEPATITIS C SCREENING Completed HIV SCREENING Completed ASSESSMENT/PLAN: 1. Controlled type 2 diabetes mellitus without complication, without long-term current use of insulin (HCC) - ICD9: 250.00, ICD10: E11.9 (primary diagnosis) - Controlled - Continue current medications - Counseled on healthy diet and regular exercise - Smoking cessation encouraged; discussed risks to health and quitting strategies. Patient is not ready to quit - Discussed diabetic education issues of diabetes complications and monitoring required and hypoglycemic/hyperglycemic symptoms - Follow up in 6 months, sooner should any other issues arise. - COMP METABOLIC PANEL - LIPID PANEL BASIC - VITAMIN D 25 HYDROXY - TSH BLD - ALBUMIN/CREAT RATIO RND UR 2. History of vitamin D deficiency - ICD9: V12.1, ICD10: Z86.39 - VITAMIN D 25 HYDROXY 3. Encounter for screening for lung cancer - ICD9: V76.0, ICD10: Z12.2 - CONSULT LUNG CANCER SCREENING CLINIC 4. Hyperlipidemia, unspecified hyperlipidemia type - ICD9: 272.4, ICD10: E78.5 - Control undetermined, due for labs - Continue current medications - Counseled on healthy diet and regular exercise - Discussed need for and benefit of weight loss. BMI 29.99 kg/(m^2) - Follow up in 6 months, sooner should any other issues arise. Milena Rasmussen APRN.MARY Prescription instructions reviewed with patient as applicable. Patient advised if symptoms do not improve or if symptoms worsen sooner, to contact their primary care physician. Potential red flag symptoms discussed with the patient. Reviewed appropriate action plan to take if red flag symptoms occur. Patient agreeable to treatment plan. I spent a total of 25 minutes on the date of the service which included preparing to see the patient, [id number] patient care, completing clinical documentation, obtaining and/or reviewing separately obtained history, performing a medically appropriate examination, counseling and educating the patient/family/caregiver, and ordering medications, tests, or procedures. documented in this encounter [facility] 01-30-2022 Note HNO ID: [id number] Author: Milena Rasmussen APRN.MARY Service: ? Author Type: Nurse Practitioner Type: Progress Notes Filed: 01/30/2022 2:26 PM Note Text: 01/30/2022 Patient presents with: F/U 3 Month SUBJECTIVE: This is a 51 year old that is here today for Above Complaints. DM: Just saw Dr. Franco, governor assembler hydraulic. before coming to this visit. Reports he was taken off the metformin and jardiance. Placed on meal time insulin. A1c was 12.3 at that office visit. Admits to polyuria and polydipsia. Reports he has follow-up with endo 03/02/2022 Also had some weight loss over the last 3 months however he reports he was having financial difficulty and was not really eating much. He reports his financial situation has gotten better and he now able to afford food. Last Ophthalmology exam was within the past 3 months per patient HYPERLIPIDEMIA: Patient is taking medications: Yes. Patient is watching diet: somewhat. Patient denies myalgias: Yes. Patient denies gi upset: Yes PAST MEDICAL HISTORY Diagnosis Date ADHD childhood Ankle fracture bilateral Diabetes mellitus type II, uncontrolled Dr. Franco Leg fracture, left left tib/fib Obesity (BMI 30.0-34.9) Snoring Tobacco use ALLERGIES [place] [Hydrocodone-Acetaminophen] MEDICATIONS Current Outpatient Medications Medication Sig multivit-mins/iron/folic/lycop (CENTRUM MEN ORAL) Take by mouth once daily. Tadalafil 5 mg tablet Take two tablets 30 minutes prior to sexual activity FREESTYLE LITE STRIPS test strip test blood 3 (THREE) times per day aspirin, enteric coated (ASPIRIN, ENTERIC COATED) 81 mg EC tablet Take 81 mg by mouth once daily. UNILET LANCET 28 gauge test blood 3 (THREE) times per day FREESTYLE FREEDOM LITE monitoring kit Test blood 3 (THREE) times per day insulin lispro protamin/lispro (HUMALOG MIX 50-50 KWIKPEN SUBCUTANEOUS) Inject 15 mL subcutaneously three times daily. lisinopril (ZESTRIL, PRINIVIL) 5 mg tablet Take 1 tablet by mouth once daily. atorvastatin (LIPITOR) 20 mg tablet Take 1 tablet by mouth daily at bedtime. For cholesterol. Insulin [place], Disposable, (PEN NEEDLE) 29 gauge x 1/2 Use one needle per dose. 4 per day No current facility-administered medications for this visit. Medications and allergies reviewed by this provider. SOCIAL HISTORY Social History Tobacco Use Smoking status: Every Day Packs/day: 1.00 Years: 31.00 Pack years: 31.00 Types: Cigarettes Smokeless tobacco: Former Quit date: 01/06/1992 Tobacco comments: chewed for 1 year Substance Use Topics Alcohol use: Yes Comment: rarely Drug use: No Comment: history of marijuana use in 2002 REVIEW OF SYSTEMS All other reviewed and negative other than HPI. OBJECTIVE: BP 100/72 Pulse 106 Resp 16 Wt 84.6 kg (186 lb 9.6 oz) SpO2 98% BMI 23.96 kg/m? . Vital signs reviewed by this provider. APPEARANCE Well appearing, alert, in no acute distress, well-hydrated, well nourished. EYES conjunctiva and sclera normal. HEART RRR with normal S1 and S2, no murmurs, no gallops, no JVD appreciated LUNG clear to auscultation. No wheezes, rhonchi, rales EXTREMITIES Extremities normal, No deformities, No skin discoloration, No edema, and Normal pulses bilaterally. SKIN Skin color, texture, turgor normal, no suspicious rashes or lesions to exposed skin Component Latest Ref Rng AND Units 10/18/2020 11/15/2020 Protein, Total 6.3 - 8.0 g/dL 7.0 Albumin 3.9 - 4.9 g/dL 4.5 Calcium 8.5 - 10.2 mg/dL 10.3 (H) Bilirubin, Total 0.2 - 1.3 mg/dL 0.5 Alkaline Phosphatase 38 - 113 U/L 144 (H) AST 14 - 40 U/L 19 Glucose 74 - 99 mg/dL 116 (H) BUN 9 - 24 mg/dL 12 Creatinine 0.73 - 1.22 mg/dL 0.84 Sodium 136 - 144 mmol/L 141 Potassium 3.7 - 5.1 mmol/L 4.7 Chloride 97 - 105 mmol/L 103 CO2 22 - 30 mmol/L 28 Anion Gap 9 - 18 mmol/L 10 ALT 10 - 54 U/L 21 eGFR- >60 eGFR-All Other Races . >60 Alkaline Phosphatase (ALKISO) 38 - 113 U/L 146 (H) Alk Phos Bone % 10.7 - 68.3 % 30.8 Bone Fraction 12.9 - 52.6 U/L 45.0 Alk Phos Liver % 26.0 - 86.2 % 69.2 Liver Fraction 16.0 - 69.3 U/L 101.0 (H) Alk Phos Intestine % 0.0 - 24.2 % 0.0 Intestine Fraction 0.0 - 16.3 U/L 0.0 GGT 10 - 70 U/L 18 Component Latest Ref Rng AND Units 11/02/2019 Total Cholesterol, Nonfasting <200 mg/dL 152 Triglycerides, Nonfasting <150 mg/dL 113 HDL Cholesterol, Nonfasting >39 mg/dL 35 (L) LDL Cholesterol, Nonfasting <100 mg/dL 94 Non HDL Cholesterol, Nonfasting <130 mg/dL 117 VLDL Cholesterol, Nonfasting <30 mg/dL 23 Total Chol/HDL Ratio, Nonfasting <5.10 mg/dL 4.34 LDL/HDL Ratio, Nonfasting <2.54 mg/dL 2.69 (H) DILATED RETINAL EXAM Never done COLORECTAL CANCER SCREENING Never done DEPRESSION ASSESSMENT Never done LUNG CANCER SCREENING Never done INFLUENZA(1) due on 08/21/2022 HEPATITIS B(1 of 3 - 3-dose series) due on 10/31/2022 SHINGRIX VACCINE(1 of 2) due on 10/31/2022 PNEUMOCOCCAL(2 - PCV) (more content not included)... [facility] 01-30-2022 History of Presen t illness Narrative 01/30/2022 Patient presents with: F/U 3 Month SUBJECTIVE: This is a 51 year old that is here today for Above Complaints. DM: Just saw Dr. Franco, governor assembler hydraulic. before coming to this visit. Reports he was taken off the metformin and jardiance. Placed on meal time insulin. A1c was 12.3 at that office visit. Admits to polyuria and polydipsia. Reports he has follow-up with endo 03/02/2022 Also had some weight loss over the last 3 months however he reports he was having financial difficulty and was not really eating much. He reports his financial situation has gotten better and he now able to afford food. Last Ophthalmology exam was within the past 3 months per patient HYPERLIPIDEMIA: Patient is taking medications: Yes. Patient is watching diet: somewhat. Patient denies myalgias: Yes. Patient denies gi upset: Yes PAST MEDICAL HISTORY Diagnosis Date ADHD childhood Ankle fracture bilateral Diabetes mellitus type II, uncontrolled Dr. Franco Leg fracture, left left tib/fib Obesity (BMI 30.0-34.9) Snoring Tobacco use ALLERGIES [place] [Hydrocodone-Acetaminophen] MEDICATIONS Current Outpatient Medications Medication Sig multivit-mins/iron/folic/lycop (CENTRUM MEN ORAL) Take by mouth once daily. Tadalafil 5 mg tablet Take two tablets 30 minutes prior to sexual activity FREESTYLE LITE STRIPS test strip test blood 3 (THREE) times per day aspirin, enteric coated (ASPIRIN, ENTERIC COATED) 81 mg EC tablet Take 81 mg by mouth once daily. UNILET LANCET 28 gauge test blood 3 (THREE) times per day FREESTYLE FREEDOM LITE monitoring kit Test blood 3 (THREE) times per day insulin lispro protamin/lispro (HUMALOG MIX 50-50 KWIKPEN SUBCUTANEOUS) Inject 15 mL subcutaneously three times daily. lisinopril (ZESTRIL, PRINIVIL) 5 mg tablet Take 1 tablet by mouth once daily. atorvastatin (LIPITOR) 20 mg tablet Take 1 tablet by mouth daily at bedtime. For cholesterol. Insulin [place], Disposable, (PEN NEEDLE) 29 gauge x 1/2 Use one needle per dose. 4 per day No current facility-administered medications for this visit. Medications and allergies reviewed by this provider. SOCIAL HISTORY Social History Tobacco Use Smoking status: Every Day Packs/day: 1.00 Years: 31.00 Pack years: 31.00 Types: Cigarettes Smokeless tobacco: Former Quit date: 01/06/1992 Tobacco comments: chewed for 1 year Substance Use Topics Alcohol use: Yes Comment: rarely Drug use: No Comment: history of marijuana use in 2002 REVIEW OF SYSTEMS All other reviewed and negative other than HPI. OBJECTIVE: BP 100/72 Pulse 106 Resp 16 Wt 84.6 kg (186 lb 9.6 oz) SpO2 98% BMI 23.96 kg/m . Vital signs reviewed by this provider. APPEARANCE Well appearing, alert, in no acute distress, well-hydrated, well nourished. EYES conjunctiva and sclera normal. HEART RRR with normal S1 and S2, no murmurs, no gallops, no JVD appreciated LUNG clear to auscultation. No wheezes, rhonchi, rales EXTREMITIES Extremities normal, No deformities, No skin discoloration, No edema, and Normal pulses bilaterally. SKIN Skin color, texture, turgor normal, no suspicious rashes or lesions to exposed skin Component Latest Ref Rng & Units 10/18/2020 11/15/2020 Protein, Total 6.3 - 8.0 g/dL 7.0 Albumin 3.9 - 4.9 g/dL 4.5 Calcium 8.5 - 10.2 mg/dL 10.3 (H) Bilirubin, Total 0.2 - 1.3 mg/dL 0.5 Alkaline Phosphatase 38 - 113 U/L 144 (H) AST 14 - 40 U/L 19 Glucose 74 - 99 mg/dL 116 (H) BUN 9 - 24 mg/dL 12 Creatinine 0.73 - 1.22 mg/dL 0.84 Sodium 136 - 144 mmol/L 141 Potassium 3.7 - 5.1 mmol/L 4.7 Chloride 97 - 105 mmol/L 103 CO2 22 - 30 mmol/L 28 Anion Gap 9 - 18 mmol/L 10 ALT 10 - 54 U/L 21 eGFR- >60 eGFR-All Other Races . >60 Alkaline Phosphatase (ALKISO) 38 - 113 U/L 146 (H) Alk Phos Bone % 10.7 - 68.3 % 30.8 Bone Fraction 12.9 - 52.6 U/L 45.0 Alk Phos Liver % 26.0 - 86.2 % 69.2 Liver Fraction 16.0 - 69.3 U/L 101.0 (H) Alk Phos Intestine % 0.0 - 24.2 % 0.0 Intestine Fraction 0.0 - 16.3 U/L 0.0 GGT 10 - 70 U/L 18 Component Latest Ref Rng & Units 11/02/2019 Total Cholesterol, Nonfasting <200 mg/dL 152 Triglycerides, Nonfasting <150 mg/dL 113 HDL Cholesterol, Nonfasting >39 mg/dL 35 (L) LDL Cholesterol, Nonfasting <100 mg/dL 94 Non HDL Cholesterol, Nonfasting <130 mg/dL 117 VLDL Cholesterol, Nonfasting <30 mg/dL 23 Total Chol/HDL Ratio, Nonfasting <5.10 mg/dL 4.34 LDL/HDL Ratio, Nonfasting <2.54 mg/dL 2.69 (H) DILATED RETINAL EXAM Never done COLORECTAL CANCER SCREENING Never done DEPRESSION ASSESSMENT Never done LUNG CANCER SCREENING Never done INFLUENZA(1) due on 08/21/2022 HEPATITIS B(1 of 3 - 3-dose series) due on 10/31/2022 SHINGRIX VACCINE(1 of 2) due on 10/31/2022 PNEUMOCOCCAL(2 - PCV) due on 10/31/2022 COVID-19 VACCINE(1) due on 01/30/2023 HBA1C due on 04/30/2022 LDL CHOLESTEROL due on 07/28/2022 URINE ALBUMIN:CREATININE RATIO due on 08/11/2022 DIABETIC FOOT EXAM due on 01/30/2023 ANNUAL PCP TEAM CHRONIC DISEASE VISIT due on 01/30/2023 DTAP,TDAP,TD(3 - Td or Tdap) due on 11/30/2027 HEPATITIS C SCREENING Completed HIV SCREENING Completed ASSESSMENT/PLAN: 1. Uncontrolled type 2 diabetes mellitus with hyperglycemia (HCC) - ICD9: 250.02, ICD10: E11.65 (primary diagnosis) worsening control - Continue current medications - Blood glucose monitoring on a three times a day schedule - Discussed diabetic education issues of hyperglycemic symptoms, diet, and importance of exercise with patient. - BP goal of <130/80 - LDL goal of <100 - COMP METABOLIC PANEL - HGB A1C - LISINOPRIL 5 MG TABLET - ATORVASTATIN 20 MG TABLET - follow-up with endocrinology as scheduled 2. Hyperlipidemia, unspecified hyperlipidemia type - ICD9: 272.4, ICD10: E78.5 - to be determined upon return of lab results - Continue current medication. - Encouraged following a low fat, low cholesterol diet. - Discussed the benefits of regular aerobic exercise - Check fasting lipid panel - Follow up in 6 months. - Encouraged following a low carbohydrate, healthy oil intake diet. - COMP METABOLIC PANEL - LIPID PANEL BASIC 3. Encounter for screening for lung cancer - ICD9: V76.0, ICD10: Z12.2 - CONSULT LUNG CANCER SCREENING CLINIC Milena Rasmussen APRN.CNP Prescription instructions reviewed with patient as applicable. Patient advised if symptoms do not improve or if symptoms worsen sooner, to contact their primary care physician. Potential red flag symptoms discussed with the patient. Reviewed appropriate action plan to take if red flag symptoms occur. Patient agreeable to treatment plan. I spent a total of 30 minutes on the date of the service which included preparing to see the patient, [id number] patient care, completing clinical documentation, obtaining and/or reviewing separately obtained history, performing a medically appropriate examination, counseling and educating the patient/family/caregiver, and ordering medications, tests, or procedures. documented in this encounter [facility] 11-03-2021 Miscellaneous Notes Formattin g of this note is different from the original. Patient not eligible (does not have coverage with the payer) Case ID: [id number] Payer: [employer] Member Not Eligible.Case cannot be completed as the member is ineligible. View History Electronic PA completed. Diagnosis is erectile dysfunction. No BPH. Quantity 20. Take two tablets thirty minutes prior to sexual activity Images from the original note were not included. Completing Pa for tadalafil. Please assist with PA questions documented in this encounter [facility] 10-31-2021 Instructions Milena Rasmussen APRN.MARY - 10/31/2021 11:06 AM EDT Images from the original note were not included. To schedule a diabetic eye exam at the [facility] [place], please call: [phone] Online resources to learn more [email or web address] -[email or web address].diabetes.org/diabe [email or web address]/complications/eye-complica tions https://www.aoa.org/healthy-ey es/njf-guz-iwkclp-conditions/d iabetic-retinopathy?sso=y https://www.[employer].su.[employer] by [employer] References 1. National Diabetes Statistics Report 2020: Estimates of Diabetes and Its [place] in the [facility]. Center for Disease Control and Prevention; 2020. Available at: https://www.cdc.gov/diabetes/p dfs/data/statistics/national-d jgxcuxr-xymrqocddm-nougva.pdf 2. Niurka Bauer, Zakia Zhu, Samson Garcia, Mariela Kahn, Thalia Will, Usman Puri, Mo Medina, Blaise Echevarria; Diabetic Retinopathy: A Position Statement by the [place] [employer]. Diabetes Care 22 April 2016; 40 (3): 412-418 documented in this encounter [facility] 10-31-2021 History of Presen t illness Narrative 10/31/2021 Patient presents with: Yearly Exam SUBJECTIVE: This is a 51 year old that is here today for Above Complaints. DIABETES MELLITUS: Since his last visit he denies chest pain or dyspnea , numbness, tingling or pain in extremities, low sugar/hypoglycemic reactions, weight loss/gain, lightheadedness/dizziness, and bowel changes/loose stools. Follows a diabetic diet some of the time. He is not compliant with medication(s) but is tolerating med(s) without any side effects. He reports checking his glucose on a twice a day schedule with sugars in the <250 range. Patient's last HgA1C was Hemoglobin A1C (%) Date Value 10/18/2020 6.0 01/15/2020 6.0 Reports last A1c was in April completed by Dr. Franco and it was 6.6% Reports stopped taking his diabetic medications back in April and kind of just took them off and on but realized his eye sight seemed fuzzy so restarted taking them consistently again about two weeks ago. Last Ophthalmology exam was two years ago. Has appointment scheduled today HYPERLIPIDEMIA: Patient is taking medications: Yes. Patient is watching diet: somewhat. Patient denies myalgias: Yes. Patient denies gi upset: Yes Working in quitting smoking. Requesting medication for erectile dysfunction. Reports trouble maintaining erection. Still having morning erections. Denies urinary difficulties. PAST MEDICAL HISTORY Diagnosis Date ADHD childhood Ankle fracture bilateral Diabetes mellitus type II, uncontrolled (HCC) Dr. Franco Leg fracture, left left tib/fib Obesity (BMI 30.0-34.9) Snoring Tobacco use ALLERGIES [place] [Hydrocodone-Acetaminophen] MEDICATIONS Current Outpatient Medications Medication Sig lisinopril (ZESTRIL, PRINIVIL) 5 mg tablet Take 1 tablet by mouth once daily. atorvastatin (LIPITOR) 20 mg tablet Take 1 tablet by mouth daily at bedtime. For cholesterol. FREESTYLE LITE STRIPS test strip test blood 3 (THREE) times per day JARDIANCE 25 mg tablet Take 25 mg by mouth once daily. metFORMIN (GLUCOPHAGE) 1,000 mg tablet Take 1,000 mg by mouth twice daily. aspirin, enteric coated (ASPIRIN, ENTERIC COATED) 81 mg EC tablet Take 81 mg by mouth once daily. UNILET LANCET 28 gauge test blood 3 (THREE) times per day FREESTYLE FREEDOM LITE monitoring kit Test blood 3 (THREE) times per day Insulin [place], Disposable, (PEN NEEDLE) 29 gauge x 1/2 Use one needle per dose. 4 per day No current facility-administered medications for this visit. Medications and allergies reviewed by this provider. SOCIAL HISTORY Social History Tobacco Use Smoking status: Every Day Packs/day: 1.00 Years: 31.00 Pack years: 31.00 Types: Cigarettes Smokeless tobacco: Former Quit date: 01/06/1992 Tobacco comments: chewed for 1 year Substance Use Topics Alcohol use: Yes Comment: rarely Drug use: No Comment: history of marijuana use in 2002 REVIEW OF SYSTEMS GENERAL: No weight loss, malaise or fevers RESPIRATORY: Negative for cough, hemoptysis, wheezing, COPD, dyspnea or shortness of breath CARDIOVASCULAR: Negative for chest pain, leg swelling, hypertension, CHF or palpitations All other reviewed and negative other than HPI. OBJECTIVE: BP 114/78 Pulse 99 Resp 18 Wt 97.3 kg (214 lb 6.4 oz) SpO2 98% BMI 27.53 kg/m . Vital signs reviewed by this provider. APPEARANCE Well appearing, alert, in no acute distress, well-hydrated, well nourished. EYES conjunctiva and sclera normal. EARS External ears normal, canals clear HEART RRR with normal S1 and S2, no murmurs, no gallops, no JVD appreciated LUNG clear to auscultation EXTREMITIES Extremities normal, No deformities, No skin discoloration, No edema, SKIN Skin color, texture, turgor normal, no suspicious rashes or lesions DILATED RETINAL EXAM Never done COLORECTAL CANCER SCREENING Never done DEPRESSION SCREENING due on 11/08/2020 HBA1C due on 04/20/2021 LUNG CANCER SCREENING Never done COVID-19 VACCINE(1) due on 12/13/2021 INFLUENZA(1) due on 08/21/2022 HEPATITIS B(1 of 3 - 3-dose series) due on 10/31/2022 SHINGRIX VACCINE(1 of 2) due on 10/31/2022 PNEUMOCOCCAL(2 - PCV) due on 10/31/2022 DIABETIC FOOT EXAM due on 12/13/2021 ANNUAL PCP TEAM CHRONIC DISEASE VISIT due on 12/13/2021 LDL CHOLESTEROL due on 07/28/2022 URINE ALBUMIN:CREATININE RATIO due on 08/11/2022 DTAP,TDAP,TD(3 - Td or Tdap) due on 11/30/2027 HEPATITIS C SCREENING Completed HIV SCREENING Completed ASSESSMENT/PLAN: 1. Uncontrolled type 2 diabetes mellitus with hyperglycemia (HCC) - ICD9: 250.02, ICD10: E11.65 (primary diagnosis) Component Latest Ref Rng & Units 10/31/2021 Hemoglobin A1C (POCT) 4.2 - 5.6 % 11.6 (A) worsening control Poor adherence to plan of care. - Continue current medications - Blood glucose monitoring on a twice a day schedule - Encouraged regular aerobic exercise and weight loss - Follow up in 3 months, sooner should any other issues arise. - BP goal of <130/80 - LDL goal of <100 - Patient urged to quit smoking. - HEMOGLOBIN A1C (POC) - follow-up with endocrinology 2. Screening for colon cancer - ICD9: V76.51, ICD10: Z12.11 - COLOGUARD 3. Encounter for screening for lung cancer - ICD9: V76.0, ICD10: Z12.2 - CONSULT LUNG CANCER SCREENING CLINIC 4. Tobacco use - ICD9: 305.1, ICD10: Z72.0 - Cessation encouraged. - Physiologic and physical aspects of tobacco addiction as well as strategies for quitting were discussed. - Counseling was given focusing on the harmful effects of this addiction especially given the patient's medical condition(s) which will be worsened because of the chemicals in tobacco. - Counseling was given 3-4 minutes. 5. Hyperlipidemia, unspecified hyperlipidemia type - ICD9: 272.4, ICD10: E78.5 - good control - Continue current medication. - Discussed the benefits of regular aerobic exercise and weight loss. - Follow up in 12 weeks. - Encouraged following a low carbohydrate, healthy oil intake diet. Milena Rasmussen, ASSISTANT ACCOUNT EXECUTIVE.NETWORK SUPPORT ENGINEER Prescription instructions reviewed with patient as applicable. Patient advised if symptoms do not improve or if symptoms worsen sooner, to contact their primary care physician. Potential red flag symptoms discussed with the patient. Reviewed appropriate action plan to take if red flag symptoms occur. Patient agreeable to treatment plan. I spent a total of 30 minutes on the date of the service which included preparing to see the patient, [id number] patient care, completing clinical documentation, obtaining and/or reviewing separately obtained history, performing a medically appropriate examination, counseling and educating the patient/family/caregiver, and ordering medications, tests, or procedures. documented in this encounter [facility] Diagnosis Uncontrolled type 2 diabetes mellitus with hyperglycemia (HCC)- Primary Hyperlipidemia, unspecified hyperlipidemia type Encounter for screening for lung cancer documented in this encounter [facility] note* Diagnosis Controlled type 2 diabetes mellitus without complication, without long-term current use of insulin (HCC)- Primary History of vitamin D deficiency Personal history of nutritional deficiency Encounter for screening for lung cancer Hyperlipidemia, unspecified hyperlipidemia type documented in this encounter [facility] note* Diagnosis Vitamin D deficiency- Primary Unspecified vitamin D deficiency Uncontrolled type 2 diabetes mellitus with hyperglycemia (HCC) Hyperlipidemia, mixed Mixed hyperlipidemia documented in this encounter [facility] Reason for Referral Specialty Diagnoses / Procedures Referred By Fabrice martin Referred To Contact Milena Rasmussen APRN.NETWORK SUPPORT ENGINEER [address] [place] [address] Referral ID Status Reason Start Date Expiration Date Visits Re quested Visits Authorized [id number] Closed 1 1 Specialty Diagnoses / Procedures Referred By Fabrice martin Referred To Contact Diagnoses Encounter for screening for lung cancer Procedures CONSULT LUNG CANCER SCREENING CLINIC Milena Rasmussen APRN.NETWORK SUPPORT ENGINEER [address] [place] [address] Referral ID Status Reason Start Date Expiration Date Visits Requested Visits Authorized [id number] Ref Not Required PCP Requested Referral 10/31/2021 01/29/2022 1 1 Referral ID Status Reason Start Date Expiration Date Visits Requested Visits Authorized [id number] Ref Not Required PCP Requested Referral 01/30/2022 04/30/2022 1 1 Summary Purpose Family History No Family History Records Found Advance Directives No Advanced Directives Records Found Additional Source Comments Source Comments (unrecognize d section and content) In the event this informatio n is protected by the Federal Confidentiality of Alcohol and Drug Abuse Patient Records regulations: The Federal rules restrict any use of the information to criminally investigate or prosecute any alcohol or drug abuse patient.[facility] the event this information is protected by the Federal Confidentiality of Alcohol and Drug Abuse Patient Records regulations: The Federal rules restrict any use of the information to criminally investigate or prosecute any alcohol or drug abuse patient.[facility] the event this information is protected by the Federal Confidentiality of Alcohol and Drug Abuse Patient Records regulations: The Federal rules restrict any use of the information to criminally investigate or prosecute any alcohol or drug abuse patient.[facility] the event this information is protected by the Federal Confidentiality of Alcohol and Drug Abuse Patient Records regulations: The Federal rules restrict any use of the information to criminally investigate or prosecute any alcohol or drug abuse patient.[facility] the event this information is protected by the Federal Confidentiality of Alcohol and Drug Abuse Patient Records regulations: The Federal rules restrict any use of the information to criminally investigate or prosecute any alcohol or drug abuse patient.[facility] the event this information is protected by the Federal Confidentiality of Alcohol and Drug Abuse Patient Records regulations: The Federal rules restrict any use of the information to criminally investigate or prosecute any alcohol or drug abuse patient.[facility] Health[facility] the event this information is protected by the Federal Confidentiality of Alcohol and Drug Abuse Patient Records regulations: The Federal rules restrict any use of the information to criminally investigate or prosecute any alcohol or drug abuse patient.[facility] Reason for Visit (unrecogniz ed section and content) Reason Comments Insurance Authorization Reason Comments F/U 3 Month Reason Comments F/U 6 months Reason Comments Results Reason Onset Date Comments Refill Request 11/10/2022 Reason Comments Insurance Authorization [employer] Care Teams (unrecognized sec tion and content) Injection Molding Engineer Relationship Specialty Start Date End Date Lars Ryan MD [address] [place] [address] PCP - General Family Practice 01/05/17 Injection Molding Engineer Relationship Specialty Start Date End Date Lars Ryan MD [address] [place] [address] PCP - General [facility] 01/05/17 Injection Molding Engineer Relationship Specialty Start Date End Date Lars Ryan MD [address], [place] [address] [facility] 01/05/17 Injection Molding Engineer Relationship Specialty Start Date End Date Lars Ryan MD [address] [place] [address] [facility] 01/05/17 Injection Molding Engineer Relationship Specialty Start Date End Date Lars Ryan MD [address], [place] [id number] [facility] 01/05/17 Injection Molding Engineer Relationship Specialty Start Date End Date Lars Ryan MD [address], [place] [id number] PCP - General [facility] 01/05/17 (unrecognized sect ion and content) No Status Records Found INFORMATION SOURCE (unrecogn ized section and content) FOR RECORDS PERTAINING TO PATIENTS WHO ARE OR HAVE BEEN ENROLLED IN A CHEMICAL DEPENDENCY/SUBSTANCEABUSE PROGRAM, SOME INFORMATION MAY BE OMITTED. This clinical summary was aggregated from multiple sources. Caution should be exercised in using it in the provision of clinical care. This summary normalizes information from multiple sources, and as a consequence, information in this document may materially change the coding, format and clinical context of patient data. In addition, data may be omitted in some cases. CLINICAL DECISIONS SHOULD BE BASED ON THE PRIMARY CLINICAL RECORDS. [employer] provides no warranty or guarantee of the accuracy or completeness of information in this document.
== END 2023-03-02 18:40 | disposition left against medical advice (07) ==
LOC: ED 18:46
PROVIDERS: PCP Family Medicine
DX: R69 Illness, unspecified (principal); Z53.21 Procedure and treatment not carried out due to patient leaving prior to being seen by health care provider
CPT/HCPCS: 73030

== ENCOUNTER 2023-03-22 17:29 | Emergency (ER) | payer MEDICAID, SELFPAY ==
[2023-03-22 17:30] VITALS: BP 124/83; PULSE 83; RESP 16; TEMP 36.4; O2SAT 100; BMI 27.6
--- NOTE | 2023-03-22 22:04 | CT_ITS ---
The INDICATION: Pain EXAMINATION: CT ABDOMEN AND PELVIS WITHOUT CONTRAST - CT Abdomen And Pelvis W/O Contrast Injection TECHNIQUE: Helically acquired images were obtained of the abdomen and pelvis without oral or IV contrast. A radiation dose optimization technique was used for this scan. IV Contrast dosage and agent: None. Oral contrast: None. COMPARISON: February 14, 2019, December 17, 2021. FINDINGS: LOWER CHEST: Lung bases are clear. No cardiomegaly or pericardial effusion. LIVER: Homogeneous. No focal mass. GALLBLADDER AND BILIARY TREE: No calcified gallstones. No gallbladder distension or wall edema. No intra- or extrahepatic biliary ductal dilation. PANCREAS: Large pancreatic tail pseudocyst 10.9 x 6.5 cm similar morphology and minimally increased in size from December 17, 2021 correlating with region of prior pancreatitis February 14 2019. Preserved pancreatic parenchyma at the distalmost tail. No pancreatic ductal dilatation. No peripancreatic inflammation. SPLEEN: Homogeneous parenchyma with borderline splenomegaly on coronal reformats.. ADRENAL GLANDS: No nodules. KIDNEYS AND URETERS: 1 cm left renal cyst, no imaging follow-up required. Normal renal size and position. No hydronephrosis. PERITONEUM: No ascites or free air. No other fluid collection. BOWEL: No acute gastric finding. No small bowel distention or focal wall thickening. Cecum extends cephalad into the right upper quadrant under the right hemidiaphragm. Normal appendix. Moderate colonic stool. LYMPH NODES: No enlarged mesenteric or retroperitoneal lymph nodes. VESSELS: Aorta is non-dilated. URINARY BLADDER: Unremarkable. ABDOMINAL WALL: No discrete abdominal or pelvic wall hernia. BONES: No lytic or blastic abnormality. CT/Abdomen/Pelvis without Cont IMPRESSION: Large pancreatic body and tail pseudocyst with minimal increase in size from December 17, 2021. No surrounding inflammation or ductal dilatation. Moderate colonic stool as can be seen with constipation. Cecum is flipped cephalad into the right upper quadrant underneath the right hemidiaphragm without twisting volvulus or surrounding inflammation. Electronically Signed: Tray Baron MD at 23:29 EST ,
--- NOTE | 2023-03-22 22:08 | EX.ED.DYSGE1 ---
HPI History of Present Illness Chief Complaint: Other, Pain/Inj Informant: patient Narrative Narrative: Patient is a 52-year-old male with history of diabetes mellitus and hyperlipidemia presenting with 1 week of worsening left inguinal pain. 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 He is never had any surgery for them. 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 He states he routinely lifts 10 to 30 pounds and often does repetitive lifting of 20 pounds over his head. Last week he started develop pain in his left groin at his belt line that radiates down towards the level of his testicle. He notes sneezing and send movements make it worse. Denies associated nausea, vomiting, change in his bowel habits (has 1 bowel movement a day), urinary symptoms including hematuria or difficulty urinating. Went to urgent care who was concerned that he was still having active pain and sent him to the ER for further evaluation. Patient denies any other complaints or concerns at this time [facility] Medical History GERD (gastroesophageal reflux disease) history of lymphatic infection Nicotine dependence Type 2 diabetes mellitus without complications Home Medications atorvastatin 20 mg tablet (Lipitor) 20 mg PO DAILY 02/05/20 [History Last Taken Unknown] lisinopril 5 mg tablet (Zestril) 5 mg PO DAILY 02/05/20 [History Last Taken Unknown] lancets 33 gauge ([employer] Delica Plus Lancet) #100 ea 01/30/22 [Rx Last Taken Unknown] tadalafil 2.5 mg tablet (Cialis) 2.5 mg PO DAILY 01/30/22 [History Last Taken Unknown] Humalog Mix 50-50 KwikPen U-100 Insulin 100 unit/mL subcutaneous pen (insulin lispro protamin-lispro) 20 unit (0.2 mL) subcut TID #18 mL 04/06/22 [Rx Last Taken Unknown] pen needle, diabetic 32 gauge x 5/32 (BD Ultra-Fine Lydia Pen Needle) #100 ea 04/06/22 [Rx Last Taken Unknown] [employer] Verio test strips (blood sugar diagnostic) #100 ea 11/11/22 [Rx Last Taken Unknown] oxycodone-acetaminophen 5 mg-325 mg tablet (Percocet) 1 tab PO Q8H PRN pain 3 days #10 tabs 03/23/23 [Rx Last Taken Unknown] Allergy/AdvReac Type Severity Reaction Status Date / Time acetaminophen [From Vicodin] AdvReac Mild tremors Verified 03/22/23 17:30 hydrocodone [From Vicodin] AdvReac Mild tremors Verified 03/22/23 17:30 Family History Mother Cardiac murmur Diabetes Grandmother COPD (chronic obstructive pulmonary disease) Surgical History History of cholecystectomy (~02/2019) Social History Smoking Status: Current every day smoker tobacco type: cigarettes alcohol intake: never substance use type: does not use ROS ROS ED Constitutional Constitutional ED: Denies chills or fever(s) Cardiovascular Cardiovascular: Denies chest pain Respiratory/Chest Respiratory/Chest: Denies cough Gastrointestinal Gastrointestinal: Reports other Details: left groin pain ; Denies constipation, nausea or vomiting Musculoskeletal Musculoskeletal: Denies arthralgias, back pain or myalgias Integumentary Denies rash Neurologic Neurologic: Denies headache(s) or weakness Hematologic/Lymphatic Hematologic/Lymphatic: Denies easy bleeding or easy bruising EXAM Physical Exam Const Vital Signs: 03/22/23 17:30 03/22/23 22:20 03/22/23 23:00 Temperature 97.6 F L Temperature Source Temporal Pulse Rate 83 72 Respiratory Rate 16 16 Respiratory Pattern Normal Blood Pressure 124/83 H Blood Pressure Mean 96 Pulse Ox 100 98 Oxygen Delivery Method Room Air Room Air Positive well nourished and well developed General Appearance ED: well developed and NAD HEENT Reports moist mucous membranes HEENT Narrative: poor dentition Eyes PERRL Neck supple Chest Wall inspection of chest normal Resp normal respiratory effort and clear to auscultation bilaterally Cardio regular rate and regular rhythm GI GI Narrative: Soft, nontender. Nondistended bowel. Left inguinal hernia with mild tenderness to palpation appreciated. No overlying skin changes. Palpated most prominently in the area superior and lateral to the femoral pulse. No mass appreciated in the testicles. No testicular pain appreciated. Auscultation: normoactive bowel sounds Palpation: Negative for guarding Narrative: Normal external genitalia Extremity normal to inspection Neuro oriented x3 Sensorium / Orientation: alert Psych mental status grossly normal Skin no rashes or lesions noted and no wounds MDM MDM MDM Narrative Medical decision making narrative: Patient evaluated for new onset of left inguinal pain. It is painful to palpation. I do palpate a hernia that is not easily reducible. Lower suspicion based on physical exam for incarcerated/strangulated hernia however will obtain a CT for better imaging and basic labs. Patient drove himself here so is not given any sedating medication at this time. Lab work largely unremarkable including CBC, BMP and urinalysis. Patient does have 0-5 white blood cells but no bacteria. Does not complain of any urinary symptoms and do not think his urinary tract infection. Does not have a leukocytosis or other infectious symptoms. CT shows findings distal constipation as well as a large pancreatic body and tail pseudocyst with minimal increase in size from 2021. Patient does have a history of pancreatitis. Is not complain of any upper abdominal pain I do not think he requires a lipase for the monitor of this. Case briefly discussed with general surgery who does not see any loops of bowel in the area of pain/hernia and feels that the patient is appropriate for outpatient follow-up. Patient be given a work note for Wednesday (today now) as well as work restrictions. Will be given outpatient follow-up with Ortho. Is given a short course of Vicodin for as needed pain control. Patient verbalizes agreement understand this plan. Discharged home in stable condition. Lab Data Attestation: I reviewed the patient's lab results. Labs: Laboratory Results - last 24 hr 03/22/23 22:17 WBC 9.8 RBC 5.52 Hgb 17.0 H Hct 51.2 MCV 92.8 MCH 30.8 MCHC 33.2 RDW Std Deviation 43.9 RDW Coeff of George 12.9 Plt Count 227 MPV 10.4 Immature Gran % (Auto) 0.400 Neut % (Auto) 43.8 L Lymph % (Auto) 44.6 H [place] % (Auto) 6.1 Eos % (Auto) 3.5 Baso % (Auto) 1.6 H Absolute Neuts (auto) 4.3 Absolute Lymphs (auto) 4.35 Nucleated RBC % 0 Sodium 140 Potassium 4.3 Chloride 108 H Carbon Dioxide 30.0 Anion Gap 2 L BUN 9 Creatinine 0.80 Estim Creat Clear Calc 130.56 Est GFR (MDRD) Af Amer 131 Est GFR (MDRD) Non-Af 108 BUN/Creatinine Ratio 11.2 Glucose 102 Calcium 9.8 Urine Color Yellow Urine Clarity Clear Urine pH 7.0 Ur Specific [place] 1.010 Urine Protein Negative Urine Glucose (UA) Normal Urine Ketones Negative Urine Occult Blood Negative Urine Nitrite Negative Urine Bilirubin Negative Urine Urobilinogen Normal Ur Leukocyte Esterase 100 H Urine RBC 0 SEEN Urine WBC 0-5 SEEN Ur Squamous Epith Cells 0 SEEN Urine Bacteria 0 SEEN Urine Mucus 0 SEEN Radiography Diagnostic Testing: Clinical Impression(s) from Imaging Studies Abdomen/Pelvis CT 03/22/23 22:04 IMPRESSION: Large pancreatic body and tail pseudocyst with minimal increase in size from December 17, 2021. No surrounding inflammation or ductal dilatation. Moderate colonic stool as can be seen with constipation. Cecum is flipped cephalad into the right upper quadrant underneath the right hemidiaphragm without twisting volvulus or surrounding inflammation. Electronically Signed: Tray Baron MD at 23:29 EST Reading Location ID and State: [facility] / [place] Tel , Service support , Discharge Plan Triage Chief Complaint: Other, Pain/Inj ED Provider: Thuy Escobar Dx/Rx/DC Orders Clinical Impression: Left inguinal hernia Instructions: ED Hernia (Adult) Prescriptions: New oxycodone-acetaminophen [Percocet] 5-325 mg tablet 1 tab PO Q8H PRN (Reason: pain) 3 Days Qty: 10 0RF No Action atorvastatin [Lipitor] 20 mg tablet 20 mg PO DAILY lisinopril [Zestril] 5 mg tablet 5 mg PO DAILY tadalafil [Cialis] 2.5 mg tablet 2.5 mg PO DAILY (DME) lancets [OneTouch Delica Plus Lancet] 33 gauge misc See Rx Instructions .Route Qty: 100 6RF Rx Instructions: tid Humalog Mix 50-50 KwikPen 100 unit/mL (50-50) insulin pen 20 unit subcut TID Qty: 18 6RF (DME) pen needle, diabetic [BD Ultra-Fine Lydia Pen Needle] 32 gauge x 5/32 needle See Rx Instructions .ROUTE .MEDSUPPLY Qty: 100 6RF Rx Instructions: tid (DME) OneTouch Verio test strips Strip See Rx Instructions .Route Qty: 100 6RF Rx Instructions: tid Stand Alone Forms: ED Work / School Excuse Primary Care Provider: Lit Ryan Referrals: Lit Ryan MD [Primary Care Provider] - Barrett Cornejo MD [Med Staff - Active Staff] - As soon as possible Activity Restrictions/Additional Instructions: I suspect you have hernia in your left groin that is causing your pain. Please avoid heavy lifting or straining. Your CT incidentally also showed stable pseudocyst of your pancreas as well as some findings consistent with constipation. You can take an [id number] stool softener, senna or MiraLAX to help if you have any worsening issues with constipation. Please follow-up with general surgery for further evaluation and treatment of your hernia. If the pain becomes severe, with laying down does not improve or you start to feel a bulge that does not go back in please return to the emergency room. Disposition Disposition: Home, Self Care
--- OUTSIDE RECORDS SUMMARY | 2023-03-22 22:12 | XMS RPT_ITS | CCD ---
Author Name Unknown Address [address] [place] [address] Organization [facility] Care Team Providers Care Product Line Manager Name Role Phone Lars Ryan MD Primary Care Provider LARS RYAN Primary Care Unavailab le PODLOGAR, MILENA Referring Unavailable LARS RYAN Primary Care Unavailab le PODLOGAR, MILENA Attending Unavailable LARS RYAN Primary Care Unavailab le PODLOGARMILENA Referring Unavailable LARS RYAN Primary Care Unavailab le PODLOGAR, MILENA Attending Unavailable Allergies Allergy Classification Reported Allergen(s) Allergy Type Date of Onset Reaction(s) Facility (8 sources) Acetaminophen / HYDROcodone; Translations: [HYDROCODONE-ACETA MINOPHEN] Drug Allergy 11-12-2016 Intolerance [facility] Medications Current Medications Medication Drug Class(es) Dates [...] by mouth once daily. 0 Active Problems Active Problems Problem Classification Problem Date Documented [...] [Vitamin D deficiency, unspecified] 09-29-2022 Chronic Other non-traumatic joint disorders (1 source) Pain in left hip; Translations: [Acute pain of left hip] Onset: 03-10-2023 Episodic Other non-traumatic joint disorders (1 source) Pain in left shoulder; Translations: [Acute pain of left shoulder] Onset: 03-10-2023 Episodic Other nutritional; endocrine; and metabolic disorders (7 sources) Obese class I; Translations: [Obesity, unspecified] 01-05-2017 Chronic Other nutritional; endocrine; and metabolic disorders (1 source) History of nutritional deficiency; Translations: [Personal history of other endocrine, nutritional and metabolic disease] 09-28-2022 Episodic Residual codes; unclassified (8 sources) Tobacco use and exposure - finding; Translations: [Tobacco use] Episodic Unclassified (1 source) Acute right-sided low back pain without sciatica; Translations: [Acute right-sided low back pain without sciatica] Onset: 03-10-2023 Past or Other Problems Problem Classification Problem Date Documented Da te Episodic/Chronic Other nutritional; endocrine; and metabolic disorders (1 source) Personal history of other endocrine, nutritional and metabolic disease; Translations: [History of vitamin D deficiency] Onset: 09-28-2022 Episodic Other screening for suspected conditions (not mental disorders or infectious disease) (5 sources) Patient encounter status; Translations: [Encounter for screening for malignant neoplasm of colon] Onset: 09-28-2022 Episodic Results Test Name Value Interpretation Reference Range Facil ity Vital Signs Date Time Vital Sign Value Performing Clinician Nick campbell 09-28-2022 07:18-0400 Body weight 105.96 kg Milena Rasmussen APRN.CNP Work Phone: [facility] 09-28-2022 07:18-0400 Diastolic blood pressure 76 mm[Hg] Milena Podlogar CLERICAL MANAGER.CHRONIC DISEASE EPIDEMIOLOGIST Work Phone: [facility] 09-28-2022 07:18-0400 Heart rate 89 /min Milena Podlogar CLERICAL MANAGER.CHRONIC DISEASE EPIDEMIOLOGIST Work Phone: [facility] 09-28-2022 07:18-0400 Respiratory rate 16 /min Milena Podlogar CLERICAL MANAGER.CHRONIC DISEASE EPIDEMIOLOGIST Work Phone: [facility] 09-28-2022 07:18-0400 SaO2% (BldA) [Mass fraction] 94 % Milena Podlogar CLERICAL MANAGER.CHRONIC DISEASE EPIDEMIOLOGIST Work Phone: [facility] 09-28-2022 07:18-0400 Systolic blood pressure 112 mm[Hg] Milena Podlogar CLERICAL MANAGER.CHRONIC DISEASE EPIDEMIOLOGIST Work Phone: [facility] 01-30-2022 13:15-0500 Body weight 84.64 kg Milena Podlogar CLERICAL MANAGER.CHRONIC DISEASE EPIDEMIOLOGIST Work Phone: [facility] 01-30-2022 13:15-0500 Diastolic blood pressure 72 mm[Hg] Milena Podlogar CLERICAL MANAGER.CHRONIC DISEASE EPIDEMIOLOGIST Work Phone: [facility] 01-30-2022 13:15-0500 Heart rate 106 /min Milena Podlogar CLERICAL MANAGER.CHRONIC DISEASE EPIDEMIOLOGIST Work Phone: [facility] 01-30-2022 13:15-0500 Respiratory rate 16 /min Milena Podlogar CLERICAL MANAGER.CHRONIC DISEASE EPIDEMIOLOGIST Work Phone: [facility] 01-30-2022 13:15-0500 SaO2% (BldA) [Mass fraction] 98 % Milena Podlogar CLERICAL MANAGER.CHRONIC DISEASE EPIDEMIOLOGIST Work Phone: [facility] 01-30-2022 13:15-0500 Systolic blood pressure 100 mm[Hg] Milena Podlogar CLERICAL MANAGER.CHRONIC DISEASE EPIDEMIOLOGIST Work Phone: [facility] 10-31-2021 10:21-0400 Body weight 97.25 kg Milena Podlogar CLERICAL MANAGER.CHRONIC DISEASE EPIDEMIOLOGIST Work Phone: [facility] 10-31-2021 10:21-0400 Diastolic blood pressure 78 mm[Hg] Milena Podlogar CLERICAL MANAGER.CHRONIC DISEASE EPIDEMIOLOGIST Work Phone: [facility] 10-31-2021 10:21-0400 Heart rate 99 /min Milena Podlogar CLERICAL MANAGER.CHRONIC DISEASE EPIDEMIOLOGIST Work Phone: [facility] 10-31-2021 10:21-0400 Respiratory rate 18 /min Milena Podlogar CLERICAL MANAGER.CHRONIC DISEASE EPIDEMIOLOGIST Work Phone: [facility] 10-31-2021 10:21-0400 SaO2% (BldA) [Mass fraction] 98 % Milena Podlogar CLERICAL MANAGER.CHRONIC DISEASE EPIDEMIOLOGIST Work Phone: [facility] 10-31-2021 10:21-0400 Systolic blood pressure 114 mm[Hg] Milena Podlogar CLERICAL MANAGER.CHRONIC DISEASE EPIDEMIOLOGIST Work Phone: [facility] Encounters Encounter Date Encounter Type Care Provider Facility Start: 03-10-2023 End: 03-11-2023 ambulatory LARS RYAN Facility:[facility] Start: 11-12-2022 Telephone encounter Lit Ryan MD Work Phone: Neurology Procedures Date Procedure Procedure Detail Performing Clinician Start: 10-31-2021 Hemoglobin A1c/Hemoglobin.total in Blood Milena Podlogar CLERICAL MANAGER.CHRONIC DISEASE EPIDEMIOLOGIST Work Phone: Start: 11-09-2019 Adult depression screening assessment Milena Podlogar CLERICAL MANAGER.CHRONIC DISEASE EPIDEMIOLOGIST Work Phone: Plan of Treatment Date Care Activity Detail Author Start: 11-30-2027 Urine microalbumin profile [facility] Start: 09-29-2023 ANNUAL PCP TEAM PASTEURIZING SUPERVISOR NORA DISEASE VISIT ANNUAL PCP TEAM CHRONIC DISEASE VISIT [facility] Start: 09-29-2023 Hepatitis B screening URINE AL BUMIN:CREATININE RATIO [facility] Start: 09-29-2023 Hepatitis B surface antibody level LDL CHOLESTEROL [facility] Start: 01-30-2023 3 comp foot exam completed DIABETIC FOOT EXAM [facility] Start: 01-30-2023 ANNUAL PCP TEAM PASTEURIZING SUPERVISOR NORA DISEASE VISIT ANNUAL PCP TEAM CHRONIC DISEASE VISIT [facility] Start: 01-30-2023 COVID-19 VACCINE (#1) COVID-19 VACCI NE (#1) [facility] Immunizations Immunization Date Immunization Notes Care Provider Dafne lora 11-29-2017 tetanus toxoid, redu akila diphtheria toxoid, and acellular pertussis vaccine, adsorbed Milena Podlogar CLERICAL MANAGER.CHRONIC DISEASE EPIDEMIOLOGIST Work Phone: [facility] 11-29-2017 influenza virus vaccine, unspecified formulation Lars Ryan MD Work Phone: [facility] 01-05-2017 pneumococcal polysaccharide vaccine, 23 valent Milena Podlogar CLERICAL MANAGER.CHRONIC DISEASE EPIDEMIOLOGIST Work Phone: [facility] 10-29-2004 diphtheria and tetan us toxoids, adsorbed for pediatric use Milena Podlogar CLERICAL MANAGER.CHRONIC DISEASE EPIDEMIOLOGIST Work Phone: [facility] Work Phone: Payers Date Payer Category Payer Medicaid [id number] 2016 Medicaid [id number] Social History Date Type Detail Facility [facility]: [facility] History of tobacco use Cigarette Smoker [facility] Start: 10-31-2021 End: 09-28-2022 Cigarettes smoked current (pack per day) - Reported 1 [facility] Start: 10-31-2021 Tobacco use and exposure Forme r smokeless tobacco user [facility] End: 01-06-1992 History of tobacco use User of smokeless tobacco [facility] Start: 10-31-2021 Alcohol intake Current drinke r of alcohol (finding) [facility] Start: 10-29-2021 End: 01-29-2022 History SDOH Alcohol Frequency 1 [facility] Start: 10-29-2021 End: 01-29-2022 History SDOH Alcohol Std Drinks 0 [facility] Start: 01-05-2017 History SDOH Alcohol Comment rarely [facility] Start: 10-29-2021 End: 01-29-2022 History SDOH Social Connections Phone 5 [facility] Start: 10-29-2021 End: 01-29-2022 History SDOH Social Connections Get Together 2 [facility] Start: 10-29-2021 End: 01-29-2022 History SDOH Social Connections Living 3 [facility] Start: 10-29-2021 History SDOH Physica l Activity DPW 7 [facility] Start: 11-09-2019 Education 14 [facility] Start: 10-31-2021 [facility] 1970 Sex Assigned At Male C [facility] Start: 10-12-2021 End: 10-22-2021 Exposure to SARS-CoV-2 (event) Not sure [facility] Start: 01-28-2022 End: 09-28-2022 Social connection and isolation panel [facility] Do you belong to any clubs or organizations such as orthodox groups, unions, fraternal or athletic groups, or school groups? No [facility] Are you now , , , , never or living with a partner? [facility] How often to you hav e a drink containing alcohol? Never [facility] How many standard dr inks containing alcohol do you have on a typical day? Patient does not drink [facility] Do you feel stress - tense, restless, nervous, or anxious, or unable to sleep at night because your mind is troubled all the time - these days [OSQ] Not at all [facility] (I/We) worried wheth er (my/our) food would run out before (I/we) got money to buy more. DK or Refused [facility] Start: 11-09-2019 Gender identity Identifies as male gender (finding) [facility] Start: 11-09-2019 Sexual orientation Heterosexual (rah moraes) [facility] Medical Equipment Procedure Code Equipment Code Equipment Origin al Text Equipment Identifier Dates Start: 10-27-2019 End: 11-12-2022 Clinical Notes 10-31-2021 to 03-10-2023 Telephone Encounter - Lars Ryan MD - 11/12/2022 4:34 PM EDTTelephone Encounter - Enid Martinez LPN - 11/12/2022 4:23 PM EDTPatient InstructionsPatient Instructions Note Date & Type Note Facility 03-10-2023 Note HNO ID: [id number] Author: KENIA PINEDA RT(R) Service: Radiology Author Type: Technologist Type: Progress Notes Filed: 03/10/2023 15:59 Note Text: Radiology Service Progress Note PATIENT NAME: Praveen Brown DATE OF SERVICE: March 10, 2023 TIME: 3:45 PM PATIENT IDENTITY VERIFICATION COMPLETED USING TWO (2) IDENTIFIERS: Name and Date of confirmed by patient verbally. FALL SCREENING: Has the patient had 2 falls in the last year or 1 fall with injury or currently using an Ambulatory Assistive Device (Walker, Cane, Wheelchair, Crutches, etc.)? No PATIENT GENDER DATA: Male PATIENT RELEVANT IMPLANT DATA REVIEWED: Yes RADIOLOGY DEPARTMENT: General X-ray: Exam(s) Completed: Spine X-Ray(s): Lumbar AP / LAT / L5-S1 Pelvis X-Ray: Pelvis with Hip Left PERIPHERAL IV DATA: Not applicable SIGNED BY: RT Saji(R) March 10, 2023 3:45 PM [facility] 03-10-2023 Note HNO ID: [id number] Author: MILENA RASMUSSEN APRN.CHRONIC DISEASE EPIDEMIOLOGIST Service: ? Author Type: Nurse Practitioner Type: Progress Notes Filed: 03/10/2023 16:19 Note Text: 03/10/2023 Patient presents with: Pain: Pain in left shoulder blade/arm is getting worse, left hip and lower back as well. SUBJECTIVE: This is a 52 year old that is here today for Above Complaints. ONSET: few months ago LOCATION: left shoulder and shoulder blade DURATION:intermittent CHARACTERISTICS: some numbness to upper left arm and tingling to shoulder blade AGGRAVATING FEATURES: leaning on arm ALLEVIATING FEATURES: arthritis pills Denies past/current injury, redness, warmth, swelling, or arm weakness Reports he went to ER lats week and had xray's but left because it got too busy. 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 Franco Leg fracture, left left tib/fib Obesity (BMI 30.0-34.9) Snoring Tobacco use ALLERGIES [place] [Hydrocodone-Acetaminophen] MEDICATIONS Current Outpatient Medications Medication Sig atorvastatin (LIPITOR) 40 mg tablet Take 1 tablet by mouth daily at bedtime. For cholesterol. cholecalciferol, Vitamin D3, (VITAMIN D3) 1,250 mcg (50,000 unit) cap capsule Take 1 capsule by mouth one time a week. insulin lispro protamin/lispro (HUMALOG MIX 50-50 KWIKPEN SUBCUTANEOUS) Inject 15 mL subcutaneously three times daily. lisinopril (ZESTRIL, PRINIVIL) 5 mg tablet Take 1 tablet by mouth once daily. multivit-mins/iron/folic/lycop (CENTRUM MEN ORAL) Take by mouth once daily. Tadalafil 5 mg tablet Take two tablets 30 minutes prior to sexual activity aspirin, enteric coated (ASPIRIN, ENTERIC COATED) 81 mg EC tablet Take 81 mg by mouth once daily. UNILET LANCET 28 gauge test blood 3 (THREE) times per day Insulin [place], Disposable, (PEN NEEDLE) 29 gauge x 1/2 Use one needle per dose. 4 per day No current facility-administered medications for this visit. Medications and allergies reviewed by this provider. SOCIAL HISTORY Social History Tobacco Use Smoking status: Every Day Packs/day: 1.00 Years: 31.00 Additional pack years: 0.00 Total pack years: 31.00 Types: Cigarettes Smokeless tobacco: Former Quit date: 01/06/1992 Tobacco comments: chewed for 1 year Substance Use Topics Alcohol use: Yes Comment: rarely Drug use: No Comment: history of marijuana use in 2002 REVIEW OF SYSTEMS All other reviewed and negative other than HPI. OBJECTIVE: BP 117/76 Pulse 87 Resp 16 Wt 102.1 kg (225 lb) SpO2 96% BMI 28.89 kg/m? . Vital signs reviewed by this provider. APPEARANCE Well appearing, alert, in no acute distress, well-hydrated, well nourished. LEFT HIP: No obvious deformity, erythema or swelling. No TTP. Reports discomfort with extension, internal and external rotation. No popping BACK: No obvious deformity, swelling or rashes. No TTP FROM. Some discomfort with extension. Negative SLR. Gait normal LEFT SHOULDER: No obvious deformity, erythema or swelling. No TTP. FROM without pain. Negative NEER and Page Neuro: Reflexes symmetrical, Normal gait, No involuntary motions., and negative findings: sensation to light touch and pinprick normal, reflexes normal and symmetric, plantar response downgoing bilaterally Hepatitis B Vaccine(1 of 3 - 3-dose series) Never done Covid-19 Vaccine(1) Never done Dilated Retinal Exam Never done Colorectal Cancer Screening Never done Pneumococcal Vaccine(2 of 2 - PCV) due on 01/05/2018 Lung Cancer Screening Never done Shingrix Vaccine(1 of 2) Never done HbA1C due on 04/30/2022 Influenza Vaccine(1) due on 10/23/2022 Diabetic Foot Exam due on 01/30/2023 Depression Assessment due on 02/22/2023 Urine Albumin:Creatinine Ratio due on 09/29/2023 LDL Cholesterol due on 09/29/2023 Annual PCP Team Chronic Disease Visit due on 09/29/2023 DTaP,Tdap,Td Vaccine(3 - Td or Tdap) due on 11/30/2027 Hepatitis C Screening Completed HIV Screening Completed ASSESSMENT/PLAN: 1. Acute right-sided low back pain without sciatica - ICD9: 724.2, ICD10: M54.50 (primary diagnosis) - likely muscular - no red flag symptoms or exam findings - red flag symptoms discussed, verbalizes understanding - may continue OTC NSAID as directed on packaging. Also recommend heat for 15 minutes at at time, discussed not to sleep on heating pad. May also use topicals as directed on packag (more content not included)... [facility] 11-12-2022 Miscellaneous Notes Formattin g of this note might be different from the original. Freestyle lite removed as requested. Rec'd denial from [facility]. The freestyle lite. They will cover one [...] insurance wont cover Freestyle but will cover darrell pollack. Pa completed through [employer] Prior Authorization has been completed online at [employer] for freestyle, will await response. [id number] Please keep encounter open until final decision has been received and documented from insurance company. Sammie Romero MA documented in this encounter [facility] 11-11-2022 Miscellaneous Notes Formattin g of this note is different from the original. Patient phones requesting refills as follows: Requested Prescriptions Pending Prescriptions Disp Refills FREESTYLE LITE STRIPS test strip 200 Strip 3 Sig: test blood 3 (THREE) times per day MONIKA 09/28/22 NOV 03/29/23 Please review and advise. Perfecto Sauer LPN documented in this encounter [facility] 09-29-2022 Miscellaneous Notes Formattin g of this note might be different from the original. Pt called and is notified of providers results and instructions. Pt voices understanding. Ghazal Person, RN LDL ( bad cholesterol) elevated recommend increasing atorvastatin to 40 mg and recheck labs in 3 months. Vitamin D level is low. Will send in prescription for vitamin D 97082 units one tablet WEEKLY for 12 weeks then recheck one week after last dose.The rest of his blood work and urine are within acceptable ranges. Milena Rasmussen APRN.MARY documented in this encounter [facility] 09-28-2022 Note HNO ID: [id number] Author: Milena Rasmussen APRN.CNP Service: ? Author Type: Nurse Practitioner Type: Progress Notes Filed: 09/28/2022 7:39 AM Note Text: 09/28/2022 Patient presents with: F/U 6 months SUBJECTIVE: This is a 52 year old that is here today for Above Complaints. Since last office visit has been in good health without ER visits or hospitalizations. 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 Last visit on 07/13/2022. Last A1c on 07/11/2022 and was 6.8%. Has follow-up which he believes is in December. 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 Patient is watching diet: trying to. Patient denies myalgias: Yes. Patient denies gi upset: Yes Still smoking a pack a day. No ready to quit as of yet PAST MEDICAL HISTORY Diagnosis Date ADHD childhood Ankle fracture bilateral Diabetes mellitus type II, uncontrolled Dr. Franco Leg fracture, left left tib/fib Obesity (BMI 30.0-34.9) Snoring Tobacco use ALLERGIES [place] [Hydrocodone-Acetaminophen] MEDICATIONS Current Outpatient Medications Medication Sig [...] blood 3 (THREE) times per day Insulin [place], Disposable, (PEN NEEDLE) 29 gauge x 1/2 [...] screening for lung (more content not included)... [facility] 09-28-2022 Instructions Milena Rasmussen APRN.MARY - 09/28/2022 7:35 AM EDT Images from the original note were not included. To schedule a diabetic eye exam at the [facility], please call: [phone] Online resources to learn more https://my.[facility].org /health/diseases/8591-diabetic -retinopathy https://www.diabetes.org/diabe kostas/complications/eye-complica tions https://www.aoa.org/healthy-ey es/phx-yxb-nqpizo-conditions/d iabetic-retinopathy?sso=y https://www.[employer] References 1. National Diabetes Statistics Report 2020: Estimates of Diabetes and Its [place] in the [facility]. Center for Disease Control and Prevention; 2020. Available at: https://www.cdc.gov/diabetes/p dfs/data/statistics/national-d cptltth-iqkpsekxjo-ctlzuz.pdf 2. Niurka Bauer, Zakia Zhu, Samson Garcia, Mariela Kahn, Thalia Will, Usman Puri, Mo Medina, Blaise Echevarria; Diabetic Retinopathy: A Position Statement by the [place] [employer]. Diabetes Care 22 April 2016; 40 (3): 412-418 documented in this encounter [facility] 09-28-2022 History of Presen t illness Narrative 09/28/2022 Patient presents with: F/U 6 months SUBJECTIVE: This is a 52 year old that is here today for Above Complaints. Since last office visit has been in good health without ER visits or hospitalizations. 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 Last visit on 07/13/2022. Last A1c on 07/11/2022 and was 6.8%. Has follow-up which he believes is in December. 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 Patient is watching diet: trying to. Patient denies myalgias: Yes. Patient denies gi upset: Yes Still smoking a pack a day. No ready to quit as of yet PAST MEDICAL HISTORY Diagnosis Date ADHD childhood Ankle fracture bilateral Diabetes mellitus type II, uncontrolled Dr. Franco Leg fracture, left left tib/fib Obesity (BMI 30.0-34.9) Snoring Tobacco use ALLERGIES [place] [Hydrocodone-Acetaminophen] MEDICATIONS Current Outpatient Medications Medication Sig [...] blood 3 (THREE) times per day Insulin [place], Disposable, (PEN NEEDLE) 29 gauge x 1/2 [...] which included preparing to see the patient, [id number] patient care, completing clinical documentation, obtaining and/or reviewing separately obtained history, performing a medically appropriate examination, counseling and educating the patient/family/caregiver, and ordering medications, tests, or procedures. documented in this encounter [facility] 01-30-2022 History of Presen t illness Narrative 01/30/2022 Patient presents with: F/U 3 Month SUBJECTIVE: This is a 51 year old that is here today for Above Complaints. DM: Just saw Dr. Franco, roofing machine operator. before coming to this visit. Reports he was taken off the metformin and jardiance. Placed on meal time insulin. A1c was 12.3 at that office visit. Admits to polyuria and polydipsia. Reports he has follow-up with clare 03/02/2022 Also had some weight loss over [...] Obesity (BMI 30.0-34.9) Snoring Tobacco use ALLERGIES [place] [Hydrocodone-Acetaminophen] MEDICATIONS Current Outpatient Medications Medication Sig [...] mouth daily at bedtime. For cholesterol. Insulin [place], Disposable, (PEN NEEDLE) 29 gauge x 1/2 [...] CONSULT LUNG CANCER SCREENING CLINIC Milena Rasmussen APRN.CHRONIC DISEASE EPIDEMIOLOGIST Prescription instructions reviewed with patient as applicable. [...] which included preparing to see the patient, [id number] patient care, completing clinical documentation, obtaining and/or reviewing separately obtained history, performing a medically appropriate examination, counseling and educating the patient/family/caregiver, and ordering medications, tests, or procedures. documented in this encounter [facility] 11-03-2021 Miscellaneous Notes Formattin g of this note is different from the original. Patient not eligible (does not have coverage with the payer) Case ID: [id number] Payer: [facility] Member Not Eligible.Case cannot be completed as the member is ineligible. View History Electronic PA completed. Diagnosis is erectile dysfunction. No BPH. Quantity 20. Take two tablets thirty minutes prior to sexual activity Images from the original note were not included. Completing Pa for tadalafil. Please assist with PA questions documented in this encounter [facility] 10-31-2021 Instructions Milena Rasmussen APRN.CNP - 10/31/2021 11:06 AM EDT Images from the original note were not included. To schedule a diabetic eye exam at the [facility], please call: [phone] Online resources to learn more [email or web address] tions [email or web address]/healthy-ey es/sop-pds-apqbqa-conditions/d [email or web address]=y [email or web address] References 1. National Diabetes Statistics Report 2020: Estimates of Diabetes and Its [place] in the [facility]. Center for Disease Control and Prevention; 2020. Available at: https://www.cdc.gov/diabetes/p dfs/data/statistics/national-d nxdwcel-sqermtqfxl-hdstnr.pdf 2. Niurka Bauer, Zakia Zhu, Samson Garcia, Mariela Kahn, Thalia Will, Usman Puri, Mo Medina, Blaise Echevarria; Diabetic Retinopathy: A Position Statement by the [place] [employer]. Diabetes Care 22 April 2016; 40 (3): 412-418 documented in this encounter [facility] 10-31-2021 History of Presen t illness Narrative [...] fracture bilateral Diabetes mellitus type II, uncontrolled ([facility]) Dr. Franco Leg fracture, left left tib/fib Obesity (BMI 30.0-34.9) Snoring Tobacco use ALLERGIES [place] [Hydrocodone-Acetaminophen] MEDICATIONS Current Outpatient Medications Medication Sig [...] blood 3 (THREE) times per day Insulin [place], Disposable, (PEN NEEDLE) 29 gauge x 1/2 [...] low carbohydrate, healthy oil intake diet. Milena Rasmussen APRN.CNP Prescription instructions reviewed with [...] which included preparing to see the patient, [id number] patient care, completing clinical documentation, obtaining and/or reviewing separately obtained history, performing a medically appropriate examination, counseling and educating the patient/family/caregiver, and ordering medications, tests, or procedures. documented in this encounter [facility] Diagnosis Uncontrolled type 2 diabetes mellitus with hyperglycemia (HCC)- Primary Hyperlipidemia, unspecified hyperlipidemia type Encounter for screening for lung cancer documented in this encounter [facility] note* Diagnosis Controlled type 2 diabetes mellitus without complication, without long-term current use of insulin (HCC)- Primary History of vitamin D deficiency Personal history of nutritional deficiency Encounter for screening for lung cancer Hyperlipidemia, unspecified hyperlipidemia type documented in this encounter [facility] note* Diagnosis Vitamin D deficiency- Primary Unspecified vitamin D deficiency Uncontrolled type 2 diabetes mellitus with hyperglycemia (HCC) Hyperlipidemia, mixed Mixed hyperlipidemia documented in this encounter [facility] Reason for Referral Specialty Diagnoses / Procedures Referred By Fabrice martin Referred To Contact Milena Rasmussen APRN.CNP [address] [place] [address] Referral ID Status Reason Start Date Expiration Date Visits Re quested Visits Authorized [id number] Closed 1 1 Specialty Diagnoses / Procedures Referred By Fabrice martin Referred To Contact Diagnoses Encounter for screening for lung cancer Procedures CONSULT [facility] SCREENING [facility] AnnikalogMilena bell APRN.CHRONIC DISEASE EPIDEMIOLOGIST [address] [place] [address] Referral ID Status Reason Start Date Expiration Date Visits Requested Visits Authorized [id number] Ref Not Required PCP Requested Referral 10/31/2021 01/29/2022 1 1 Referral ID Status Reason Start Date Expiration Date Visits Requested Visits Authorized [id number] Ref Not Required PCP Requested Referral 01/30/2022 [...] or prosecute any alcohol or drug abuse patient.[facility] the event this information is protected by the Federal Confidentiality of Alcohol and Drug Abuse Patient Records regulations: The Federal rules restrict any use of the information to criminally investigate or prosecute any alcohol or drug abuse patient.[facility] the event this information is protected by the Federal Confidentiality of Alcohol and Drug Abuse Patient Records regulations: The Federal rules restrict any use of the information to criminally investigate or prosecute any alcohol or drug abuse patient.[facility] the event this information is protected by the Federal Confidentiality of Alcohol and Drug Abuse Patient Records regulations: The Federal rules restrict any use of the information to criminally investigate or prosecute any alcohol or drug abuse patient.[facility] the event this information is protected by the Federal Confidentiality of Alcohol and Drug Abuse Patient Records regulations: The Federal rules restrict any use of the information to criminally investigate or prosecute any alcohol or drug abuse patient.[facility] the event this information is protected by the Federal Confidentiality of Alcohol and Drug Abuse Patient Records regulations: The Federal rules restrict any use of the information to criminally investigate or prosecute any alcohol or drug abuse patient.[facility] the event this information is protected by the Federal Confidentiality of Alcohol and Drug Abuse Patient Records regulations: The Federal rules restrict any use of the information to criminally investigate or prosecute any alcohol or drug abuse patient.[facility] Reason for Visit (unrecogniz ed section and content) Reason Comments Insurance Authorization Reason Comments F/U 3 Month Reason Comments F/U 6 months Reason Comments Results Reason Onset Date Comments Refill Request 11/10/2022 Reason Comments Insurance Authorization Kameron wilson [facility] Care Teams (unrecognized sec tion and content) Product Line Manager Relationship Specialty Start Date End Date Lars Ryan MD [address], [place] [address] PCP - General Family Practice 01/05/17 Product Line Manager Relationship Specialty Start Date End Date Lars Ryan MD [address], [place] [id number] [phone] PCP - General Family Medicine 01/05/17 Product Line Manager Relationship Specialty Start Date End Date Lars Ryan MD [address], [place] [id number] [phone] PCP - General Family Medicine 01/05/17 Product Line Manager Relationship Specialty Start Date End Date Lars Ryan MD [address], [place] [id number] [phone] PCP - General Family Medicine 01/05/17 Product Line Manager Relationship Specialty Start Date End Date Lars Ryan MD [address], [place] [address] [phone] PCP - General Family Medicine 01/05/17 Product Line Manager Relationship Specialty Start Date End Date Lars Ryan MD [address], [place] [id number] [phone] PCP - General Family Medicine 01/05/17 (unrecognized sect ion and content) No [...] BE BASED ON THE PRIMARY CLINICAL RECORDS. [facility]. provides no warranty or guarantee of the accuracy or completeness of information in this document.
[2023-03-22 22:20] VITALS: PULSE 72; RESP 16; O2SAT 98
[2023-03-22 22:28] LABS: Bacteria 0 SEEN /hpf (None Seen); Mucous, Urine 0 SEEN /hpf (<or=2+); Red Blood Cells-Urine 0 SEEN /hpf (0-5); Squamous Epithelial Cells - UA 0 SEEN /hpf (0-5)
[2023-03-22 22:30] LABS: Absolute Lymphocyte Count 4.35 X10^3/uL (0.83-4.51); Absolute Neutrophil Count 4.3 X10^3/uL (2.0-7.7); Basophil# 0.16 X10^3/uL; Basophil% 1.6 % (0-1); Eosinophil# 0.34 X10^3/uL; Eosinophils% 3.5 % (0-5); Hematocrit 51.2 % (40-54); Lymphocyte # 4.35 X10^3/ul (0.83-4.51); Lymphocyte % 44.6 % (19-41); Mean Corp Hgb Conc 33.2 g/dL (32-36); Mean Corpuscular Hgb 30.8 pg (27.0-32.0); Mean Corpuscular Volume 92.8 fL (80-94); Mean Platelet Vol. 10.4 fl (6.2-12.0); Monocyte% 6.1 % (0-10); NRBC Flagged by Analyzer 0 % (0-5); Neutrophil # 4.27 X10^3/uL (2.7-7.7); Neutrophil % 43.8 % (47-70); Platelet Count 227 K/mm3 (150-450); RBC Distribution Width CV 12.9 % (11.6-14.6); RBC Distribution Width SD 43.9 fl (35.1-43.9); Red Blood Count 5.52 M/mm3 (4.6-6.2); White Blood Count 9.8 K/mm3 (4.4-11.0)
[2023-03-22 22:37] LABS: Color, Urine Yellow (Yellow); Glucose, Dipstick Normal (Normal); Ketone-Dipstick Negative (Negative); Leukocyte Esterase-Dipstick 100 /ul (Negative); Nitrite-Dipstick Negative (Negative); Occult Blood-Urine Negative /ul (Negative); Protein-Dipstick Negative (Negative); Urine Bilirubin Dipstick Negative (Negative); Urine Clarity Clear (Clear); Urine Urobilinogen Normal (Normal)
[2023-03-22 22:44] LABS: White Blood Cells 0-5 SEEN /hpf (0-5)
[2023-03-22 22:47] LABS: Anion Gap 2 (5-15); BUN 9 mg/dL (7-18); BUN/Creat Ratio 11.2 RATIO (10-20); Calcium,Total 9.8 mg/dL (8.5-10.1); Chloride 108 mmol/L (98-107); EST Glomerular Filtration Rate 108 mL/min (>60); Est Glom Filt Rate - Afr Amer 131 mL/min (>60); Estimated Creatinine Clearance 130.56 ml/min; Glucose 102 mg/dL (74-106); Potassium 4.3 mmol/L (3.5-5.1); Sodium Level 140 mmol/L (136-145)
[2023-03-23 00:33] VITALS: RESP 14
== END 2023-03-23 00:34 | disposition home or self-care (01) ==
PROVIDERS: Emergency Provider Emergency Medicine; PCP Family Medicine; Visit Provider Emergency Medicine
DX: K40.90 Unilateral inguinal hernia, without obstruction or gangrene, not specified as recurrent (principal); E11.9 Type 2 diabetes mellitus without complications; Z79.4 Long term (current) use of insulin; K86.3 Pseudocyst of pancreas; K59.00 Constipation, unspecified; E78.5 Hyperlipidemia, unspecified; F17.210 Nicotine dependence, cigarettes, uncomplicated; Z79.899 Other long term (current) drug therapy
CPT/HCPCS: 74176; 80048; 81001; 85025; 99283